=== PATIENT | female | born 1955 | race Caucasian/White ===

== ENCOUNTER 2018-05-03 18:33 | Inpatient (IN) | payer OTHER ==
[~2018-05-03] VITALS: Ht 165.1 cm; Wt 77.0 kg
[~2018-05-03 18:33] MED LIST: ATEN-51; ATOR20TA17; METFORMIN HCL
[2018-05-03 22:50] VITALS: Ht 165.1 cm; Wt 77.0 kg
[2018-05-03 22:59] VITALS: PULSE 85
[2018-05-03 23:10] VITALS: BP 117/58; PULSE 87; RESP 18
[2018-05-04] VITALS (11 sets, daily range): BP systolic 123–152; BP diastolic 60–71; PULSE 70–84; RESP 18–19
[2018-05-04] MEDS ORDERED: GLUCAGON 1 MG INJ IM PRN (01:00)
[2018-05-04] MEDS: ACCU-CHEK XX SCH ×5 (01:00→16:39)
[2018-05-04] MEDS ORDERED: GLUCOSE GEL 15 GRAM TUBE PO PRN ×2 (01:00)
[2018-05-04] MEDS ORDERED: NACL 0.9% 3 ML SYG IV SCH (01:00)
[2018-05-04] MEDS ORDERED: ACETAMINOPHEN 325 MG TAB PO PRN (01:00)
[2018-05-04] MEDS ORDERED: GLUCOSE GEL 15 GRAM TUBE BUCCAL PRN (01:00)
[2018-05-04] MEDS ORDERED: ALBUTEROL/IPRATROPIUM (NEB) 3 ML AMP HHN PRN (01:00)
[2018-05-04] MEDS ORDERED: DEXTROSE 50% 50 ML SYRINGE IV PRN ×2 (01:00)
[2018-05-04] MEDS ORDERED: NITROGLYCERIN (SL) 0.4 MG TAB SL PRN (01:00)
[2018-05-04] MEDS: DEXTROSE 5%-0.45% NACL 1,000 ML IV SCH ×2 (01:12→08:32)
[2018-05-04] MEDS: INSULIN ASPART [NOVOLOG] 3 ML PEN SC SCH ×6 (01:22→22:35)
[2018-05-04] MEDS ORDERED: ACCU-CHEK XX SCH (02:00)
--- NOTE | 2018-05-04 04:11 | HP ---
Date/Time of Note Date/Time of Note DATE: 05/04/18 TIME: 04:07 Assessment/Plan VTE Prophylaxis Pharmacological prophylaxis: heparin Assessment/Plan Assessment/Plan 1. Multivessel CAD -Patient transferred for CABG. The cardiothoracic aware of transfer -We will place a cardiology consult in a.m. 2. Hypertension: Continue antihypertensives, adjust as needed 3. Type 2 diabetes: Insulin while in house 4. Dyslipidemia: Continue statin Result Diagram: 05/04/18 0055 05/04/18 0055 Results 24hrs Laboratory Tests Test 05/04/18 00:55 05/04/18 00:56 05/04/18 01:15 White Blood Count 8.7 Red Blood Count 3.32 L Hemoglobin 10.0 L Hematocrit 29.8 L Mean Corpuscular Volume 89.8 Mean Corpuscular Hemoglobin 30.1 Mean Corpuscular Hemoglobin Concent 33.6 Red Cell Distribution Width 13.6 Platelet Count 190 Mean Platelet Volume 10.7 H Immature Granulocytes % 0.300 Neutrophils % 56.1 Lymphocytes % 34.7 Monocytes % 6.2 Eosinophils % 2.2 Basophils % 0.5 Nucleated Red Blood Cells % 0.0 Immature Granulocytes # 0.030 Neutrophils # 4.9 Lymphocytes # 3.0 H Monocytes # 0.5 Eosinophils # 0.2 Basophils # 0.0 Nucleated Red Blood Cells # 0.0 Sodium Level 141 Potassium Level 3.7 Chloride Level 102 Carbon Dioxide Level 27 Anion Gap 12 Blood Urea Nitrogen 14 Creatinine 0.74 Est Glomerular Filtrat Rate mL/min > 60 Glucose Level 186 Hemoglobin A1c 6.9 H Calcium Level 9.1 Total Bilirubin 0.7 Direct Bilirubin 0.00 Indirect Bilirubin 0.7 Aspartate Amino Transf (AST/SGOT) 25 Alanine Aminotransferase (ALT/SGPT) 28 Alkaline Phosphatase 87 Creatine Kinase 38 Creatine Kinase Index 0.7 Creatinine Kinase MB (Mass) 0.26 Troponin I 0.093 Total Protein 6.6 Albumin 3.8 Globulin 2.80 Albumin/Globulin Ratio 1.35 Thyroid Stimulating Hormone (TSH) 2.250 Bedside Glucose 215 201 HPI/ROS Admit Date/Time Admit Date/Time May 03, 2018 at 23:07 Hx of Present Illness This is a 62-year-old female with a history of hypertension, type II diabetes, dyslipidemia who initially presented on outside hospital for chest pain. Patient was diagnosed with multivessel CAD and transferred to [facility] for CABG. currently patient stable and chest pain-free. PMH/Family/Social Past Medical History Medications Current Medications Acetaminophen (Tylenol Tab) 650 mg Q6H PRN PO MILD PAIN(1-3)OR ELEVATED TEMP; Start 05/03/18 at 23:30 Diagnostic Test (Pha) (Accu-Chek) 1 ea Q4 XX ; Start 05/04/18 at 01:00 Dextrose/Sodium Chloride 1,000 ml @ 75 mls/hr [id number] IV Last administered on 05/04/18at 01:12; Admin Dose 75 MLS/HR; Start 05/04/18 at 00:33 IV Flush (NS 3 ml) 3 ml PER PROTOCOL IV ; Start 05/04/18 at 01:00 Ondansetron HCl (Zofran Inj) 4 mg Q6H PRN IV NAUSEA AND/OR VOMITING; Start 05/04/18 at 01:00 Aspirin (Aspirin) 81 mg DAILY PO ; Start 05/04/18 at 09:00 Nitroglycerin (Nitroglycerin (Sl Tab) 0.4 Mg) 1 tab Q5M PRN SL CHEST PAIN; Start 05/04/18 at 01:00 Acetaminophen (Tylenol Tab) 650 mg Q6H PRN PO PAIN LEVEL 1-3 OR FEVER; Start 05/04/18 at 01:00 Acetaminophen/ Hydrocodone Bitart ([place] (5/325)) 1 tab Q6H PRN PO PAIN LEVEL 4-6; Start 05/04/18 at 01:00 Enoxaparin Sodium (Lovenox) 40 mg DAILY SC ; Start 05/04/18 at 09:00 Albuterol/ Ipratropium (Duoneb) 3 ml Q2H RESP THERAPY PRN HHN SHORTNESS OF BREATH; Start 05/04/18 at 01:00 Insulin Aspart (Novolog Insulin Pen) NOVOLOG *MILD* ALGORI... Q4 SC Last admini stered on 05/04/18at 01:22; Admin Dose 2 UNIT; Start 05/04/18 at 01:00 Atenolol (Tenormin) 25 mg DAILY PO ; Start 05/04/18 at 09:00 Atorvastatin Calcium (Lipitor) 40 mg QHS PO ; Start 05/04/18 at 21:00 Miscellaneous Information 1 ea NOTE XX ; Start 05/04/18 at 01:00 Glucose (Glutose) 15 gm Q15M PRN PO DECREASED GLUCOSE; Start 05/04/18 at 01:00 Glucose (Glutose) 22.5 gm Q15M PRN PO DECREASED GLUCOSE; Start 05/04/18 at 01:00 Dextrose (D50w Syringe) 25 ml Q15M PRN IV DECREASED GLUCOSE; Start 05/04/18 at 01:00 Dextrose (D50w Syringe) 50 ml Q15M PRN IV DECREASED GLUCOSE; Start 05/04/18 at 01:00 Glucagon (Glucagen) 1 mg Q15M PRN IM DECREASED GLUCOSE; Start 05/04/18 at 01:00 Glucose (Glutose) 15 gm Q15M PRN BUCCAL DECREASED GLUCOSE; Start 05/04/18 at 01:00 Coded Allergies: No Known Drug Allergies (Verified Allergy, Mild, 10/11/09) Social History Smoking Status: Never smoker Exam/Review of Systems Vital Signs Vitals Vital Signs Date Temp Pulse Resp B/P (MAP) Pulse Ox O2 O2 Flow FiO2 Time Delivery Rate 05/04/18 82 00:00 05/03/18 98.7 18 117/58 94 Room Air 23:10 (77) Exam Exam Constitutional: other (no acute distress) Head: normocephalic Respiratory: other (slight decreased at bases) Cardiovascular: regular rate and rhythm Gastrointestinal: soft Extremities: normal pulses PMH/Family/Social Past Medical History Medical History: other (see hpi) Coded Allergies: No Known Drug Allergy (Verified Allergy, Unknown, 12/18/15) Past Surgical History Past Surgical Hx: other (see hpi) Family History Significant Family History: no pertinent family hx Social History Alcohol Use: other Smoking Status: Unknown if ever smoked Drug Use: other SAEED ASENCIO MD May 04, 2018 04:11
[2018-05-04] MEDS: ASPIRIN 81 MG TAB PO SCH (08:32)
[2018-05-04] MEDS: ENOXAPARIN 40 MG/0.4 ML SYG SC SCH (08:44)
[2018-05-04] MEDS ORDERED: ATENOLOL 25 MG TAB PO SCH (09:00)
--- NOTE | 2018-05-04 15:18 | PN ---
Date/Time of Note Date/Time of Note DATE: 05/04/18 TIME: 15:18 Objective Vitals Vital Signs Date Temp Pulse Resp B/P (MAP) Pulse Ox O2 O2 Flow FiO2 Time Delivery Rate 05/04/18 98.4 75 19 145/67 91 15:10 (93) 05/04/18 Room Air 12:09 Results Result Diagram: 05/04/18 0055 05/04/18 0055 Medications Medications Current Medications Acetaminophen (Tylenol Tab) 650 mg Q6H PRN PO MILD PAIN(1-3)OR ELEVATED TEMP; Start 05/03/18 at 23:30 Diagnostic Test (Pha) (Accu-Chek) 1 ea Q4 XX ; Start 05/04/18 at 01:00 IV Flush (NS 3 ml) 3 ml PER PROTOCOL IV ; Start 05/04/18 at 01:00 Ondansetron HCl (Zofran Inj) 4 mg Q6H PRN IV NAUSEA AND/OR VOMITING; Start 05/04/18 at 01:00 Aspirin (Aspirin) 81 mg DAILY PO Last administered on 05/04/18at 08:32; Admin Dose 81 MG; Start 05/04/18 at 09:00 Nitroglycerin (Nitroglycerin (Sl Tab) 0.4 Mg) 1 tab Q5M PRN SL CHEST PAIN; Start 05/04/18 at 01:00 Acetaminophen (Tylenol Tab) 650 mg Q6H PRN PO PAIN LEVEL 1-3 OR FEVER; Start 05/04/18 at 01:00 Acetaminophen/ Hydrocodone Bitart ([place] (5/325)) 1 tab Q6H PRN PO PAIN LEVEL 4-6; Start 05/04/18 at 01:00 Enoxaparin Sodium (Lovenox) 40 mg DAILY SC Last administered on 05/04/18at 08:44; Admin Dose 40 MG; Start 05/04/18 at 09:00 Albuterol/ Ipratropium (Duoneb) 3 ml Q2H RESP THERAPY PRN HHN SHORTNESS OF BREATH; Start 05/04/18 at 01:00 Insulin Aspart (Novolog Insulin Pen) NOVOLOG *MILD* ALGORI... Q4 SC Last administered on 05/04/18at 12:04; Admin Dose 1 UNIT; Start 05/04/18 at 01:00 Atenolol (Tenormin) 25 mg DAILY PO Last administered on 05/04/18at 08:33; Admin D ose 25 MG; Start 05/04/18 at 09:00 Atorvastatin Calcium (Lipitor) 40 mg QHS PO ; Start 05/04/18 at 21:00 Miscellaneous Information 1 ea NOTE XX ; Start 05/04/18 at 01:00 Glucose (Glutose) 15 gm Q15M PRN PO DECREASED GLUCOSE; Start 05/04/18 at 01:00 Glucose (Glutose) 22.5 gm Q15M PRN PO DECREASED GLUCOSE; Start 05/04/18 at 01:00 Dextrose (D50w Syringe) 25 ml Q15M PRN IV DECREASED GLUCOSE; Start 05/04/18 at 01:00 Dextrose (D50w Syringe) 50 ml Q15M PRN IV DECREASED GLUCOSE; Start 05/04/18 at 01:00 Glucagon (Glucagen) 1 mg Q15M PRN IM DECREASED GLUCOSE; Start 05/04/18 at 01:00 Glucose (Glutose) 15 gm Q15M PRN BUCCAL DECREASED GLUCOSE; Start 05/04/18 at 01:00 VTE Prophylaxis Risk score (from Nsg)>0 risk: 2 SCD applied (from Ns): Yes Lines/Catheters IV Catheter Type: Freed in Place: No Assessment/Plan Hospital Course Short progress note as H&P was seen earlier today, patient transferred for CABG, cardiothoracic surgery and cardiology has been consulted, patient scheduled for surgery on May 08. JOSE ELIAS ANGELO May 04, 2018 15:18
--- NOTE | 2018-05-04 18:57 | CONS ---
Date/Time of Note Date/Time of Note DATE: 05/04/18 TIME: 18:55 Assessment/Plan Assessment/Plan Assessment/Plan Severe obstructive coronary artery disease Diabetes Hypertension -Patient presented to outside facility with symptoms of chest pain. She underwent cardiac catheterization. As per transfer reports, patient with severe disease noted proximal LAD and proximal circumflex which was dominant. Recommendations were for coronary artery bypass grafting. We will continue aspirin therapy, beta-vanna, statin therapy, check echocardiogram and ECG. Result Diagram: 05/04/18 0055 05/04/18 0055 Results 24hrs Laboratory Tests Test 05/04/18 00:55 05/04/18 00:56 05/04/18 01:15 05/04/18 05:43 White Blood Count 8.7 Red Blood Count 3.32 L Hemoglobin 10.0 L Hematocrit 29.8 L Mean Corpuscular Volume 89.8 Mean Corpuscular 30.1 Hemoglobin Mean Corpuscular 33.6 Hemoglobin Concent Red Cell Distribution 13.6 Width Platelet Count 190 Mean Platelet Volume 10.7 H Immature Granulocytes % 0.300 Neutrophils % 56.1 Lymphocytes % 34.7 Monocytes % 6.2 Eosinophils % 2.2 Basophils % 0.5 Nucleated Red Blood 0.0 Cells % Immature Granulocytes # 0.030 Neutrophils # 4.9 Lymphocytes # 3.0 H Monocytes # 0.5 Eosinophils # 0.2 Basophils # 0.0 Nucleated Red Blood 0.0 Cells # Sodium Level 141 Potassium Level 3.7 Chloride Level 102 Carbon Dioxide Level 27 Anion Gap 12 Blood Urea Nitrogen 14 Creatinine 0.74 Est Glomerular Filtrat > 60 Rate mL/min Glucose Level 186 Hemoglobin A1c 6.9 H Calcium Level 9.1 Total Bilirubin 0.7 Direct Bilirubin 0.00 Indirect Bilirubin 0.7 Aspartate Amino 25 Transf (AST/SGOT) Alanine 28 Aminotransferase (ALT/SG PT) Alkaline Phosphatase 87 Creatine Kinase 38 Creatine Kinase Index 0.7 Creatinine Kinase MB 0.26 (Mass) Troponin I 0.093 Total Protein 6.6 Albumin 3.8 Globulin 2.80 Albumin/Globulin Ratio 1.35 Thyroid Stimulating 2.250 Hormone (TSH) Bedside Glucose 215 201 176 Test 05/04/18 05:57 05/04/18 08:25 05/04/18 11:51 05/04/18 17:03 Creatine Kinase 38 Creatine Kinase Index 0.7 Creatinine Kinase MB 0.28 (Mass) Troponin I 0.084 Bedside Glucose 176 164 194 Consultation Date/Type/Reason Admit Date/Time May 03, 2018 at 23:07 Type of Consult cv Reason for Consultation Coronary artery disease Hx of Present Illness This is a 62-year-old female past medical history of diabetes, hypertension presents to outside facility with chest pain or shortness of breath. When cardiac workup and found to have severe coronary artery disease with recommendations for coronary artery bypass grafting. She denies current chest pain, shortness of breath, palpitations or dizziness. 12 point review of systems was performed with all pertinent positives and negatives mentioned above and all else is negative Past Medical History Medical History: coronary artery disease, diabetes, high cholesterol, hypertension Medications Current Medications Acetaminophen (Tylenol Tab) 650 mg Q6H PRN PO MILD PAIN(1-3)OR ELEVATED TEMP; Start 05/03/18 at 23:30 IV Flush (NS 3 ml) 3 ml PER PROTOCOL IV ; Start 05/04/18 at 01:00 Ondansetron HCl (Zofran Inj) 4 mg Q6H PRN IV NAUSEA AND/OR VOMITING; Start 05/04/18 at 01:00 Aspirin (Aspirin) 81 mg DAILY PO Last administered on 05/04/18at 08:32; Admin Dose 81 MG; Start 05/04/18 at 09:00 Nitroglycerin (Nitroglycerin (Sl Tab) 0.4 Mg) 1 tab Q5M PRN SL CHEST PAIN; Start 05/04/18 at 01:00 Acetaminophen (Tylenol Tab) 650 mg Q6H PRN PO PAIN LEVEL 1-3 OR FEVER; Start 05/04/18 at 01:00 Acetaminophen/ Hydrocodone Bitart ([place] (5/325)) 1 tab Q6H PRN PO PAIN LEVEL 4-6; Start 05/04/18 at 01:00 Enoxaparin Sodium (Lovenox) 40 mg DAILY SC Last administered on 05/04/18at 08:44; Admin Dose 40 MG; Start 05/04/18 at 09:00 Albuterol/ Ipratropium (Duoneb) 3 ml Q2H RESP THERAPY PRN HHN SHORTNESS OF BREATH; Start 05/04/18 at 01:00 Atenolol (Tenormin) 25 mg DAILY PO Last administered on 05/04/18at 08:33; Admin Dose 25 MG; Start 05/04/18 at 09:00 Atorvastatin Calcium (Lipitor) 40 mg QHS PO ; Start 05/04/18 at 21:00 Miscellaneous Information 1 ea NOTE XX ; Start 05/04/18 at 01:00 Glucose (Glutose) 15 gm Q15M PRN PO DECREASED GLUCOSE; Start 05/04/18 at 01:00 Glucose (Glutose) 22.5 gm Q15M PRN PO DECREASED GLUCOSE; Start 05/04/18 at 01:00 Dextrose (D50w Syringe) 25 ml Q15M PRN IV DECREASED GLUCOSE; Start 05/04/18 at 01:00 Dextrose (D50w Syringe) 50 ml Q15M PRN IV DECREASED GLUCOSE; Start 05/04/18 at 01:00 Glucagon (Glucagen) 1 mg Q15M PRN IM DECREASED GLUCOSE; Start 05/04/18 at 01:00 Glucose (Glutose) 15 gm Q15M PRN BUCCAL DECREASED GLUCOSE; Start 05/04/18 at 01:00 Diagnostic Test (Pha) (Accu-Chek) 1 ea 02 XX ; Start 05/05/18 at 02:00 Insulin Aspart (Novolog Insulin Pen) NOVOLOG *MILD* ALGORITHM WITH MEALS BEDTIME SC Last administered on 05/04/18at 17:13; Admin Dose 2 UNIT; Start 05/04/18 at 17:55 Allergies: Coded Allergies: No Known Drug Allergies (Verified Allergy, Mild, 10/11/09) Past Surgical History Past Surgical Hx: no surgical history Family History Significant Family History: no pertinent family hx Social History Alcohol Use: none Smoking Status: Never smoker Exam/Review of Systems Vital Signs Vitals Vital Signs Date Temp Pulse Resp B/P (MAP) Pulse Ox O2 O2 Flow FiO2 Time Delivery Rate 05/04/18 79 16:51 05/04/18 Room Air 15:59 05/04/18 98.4 19 145/67 91 15:10 (93) Exam No apparent distress Constitutional: alert, oriented Head: normocephalic Neck: supple Respiratory: clear to auscultation, normal air movement Cardiovascular: regular rate and rhythm, other (S1-S2 heard) Gastrointestinal: soft, non-tender, bowel sounds Extremities: other (No significant edema) Medications Medications Current Medications Acetaminophen (Tylenol Tab) 650 mg Q6H PRN PO MILD PAIN(1-3)OR ELEVATED TEMP; Start 05/03/18 at 23:30 IV Flush (NS 3 ml) 3 ml PER PROTOCOL IV ; Start 05/04/18 at 01:00 Ondansetron HCl (Zofran Inj) 4 mg Q6H PRN IV NAUSEA AND/OR VOMITING; Start 05/04/18 at 01:00 Aspirin (Aspirin) 81 mg DAILY PO Last administered on 05/04/18at 08:32; Admin Dose 81 MG; Start 05/04/18 at 09:00 Nitroglycerin (Nitroglycerin (Sl Tab) 0.4 Mg) 1 tab Q5M PRN SL CHEST PAIN; Start 05/04/18 at 01:00 Acetaminophen (Tylenol Tab) 650 mg Q6H PRN PO PAIN LEVEL 1-3 OR FEVER; Start 05/04/18 at 01:00 Acetaminophen/ Hydrocodone Bitart ([place] (5/325)) 1 tab Q6H PRN PO PAIN LEVEL 4-6; Start 05/04/18 at 01:00 Enoxaparin Sodium (Lovenox) 40 mg DAILY SC Last administered on 05/04/18at 08:44; Admin Dose 40 MG; Start 05/04/18 at 09:00 Albuterol/ Ipratropium (Duoneb) 3 ml Q2H RESP THERAPY PRN HHN SHORTNESS OF CRISTOFER TH; Start 05/04/18 at 01:00 Atenolol (Tenormin) 25 mg DAILY PO Last administered on 05/04/18at 08:33; Admin Dose 25 MG; Start 05/04/18 at 09:00 Atorvastatin Calcium (Lipitor) 40 mg QHS PO ; Start 05/04/18 at 21:00 Miscellaneous Information 1 ea NOTE XX ; Start 05/04/18 at 01:00 Glucose (Glutose) 15 gm Q15M PRN PO DECREASED GLUCOSE; Start 05/04/18 at 01:00 Glucose (Glutose) 22.5 gm Q15M PRN PO DECREASED GLUCOSE; Start 05/04/18 at 01:00 Dextrose (D50w Syringe) 25 ml Q15M PRN IV DECREASED GLUCOSE; Start 05/04/18 at 01:00 Dextrose (D50w Syringe) 50 ml Q15M PRN IV DECREASED GLUCOSE; Start 05/04/18 at 01:00 Glucagon (Glucagen) 1 mg Q15M PRN IM DECREASED GLUCOSE; Start 05/04/18 at 01:00 Glucose (Glutose) 15 gm Q15M PRN BUCCAL DECREASED GLUCOSE; Start 05/04/18 at 01:00 Diagnostic Test (Pha) (Accu-Chek) 1 ea 02 XX ; Start 05/05/18 at 02:00 Insulin Aspart (Novolog Insulin Pen) NOVOLOG *MILD* ALGORITHM WITH MEALS BEDTIME SC Last administered on 05/04/18at 17:13; Admin Dose 2 UNIT; Start 05/04/18 at 17:55 Vinny Simons DO May 04, 2018 18:57
--- NOTE | 2018-05-04 18:58 | CONS ---
DATE OF ADMISSION: 05/03/2018 DATE OF CONSULTATION: REASON FOR CONSULTATION: Coronary artery disease. HISTORY OF PRESENT ILLNESS: This is a 62-year-old female with a history of hypertension, diabetes, w ho was admitted to [facility] with a non-ST elevation myocardial infarction. Subsequently, was found to have a cardiac catheterization which showed 3-vessel coronary artery disease. Patient i s now being transferred to [facility] to undergo coronary artery bypass grafting. PAST MEDICAL HISTORY: Hypertension, hyperlipidemia. PAST SURGICAL HISTORY: None. ALLERGIES: NONE. SOCIAL HISTORY: No smoking, drinking, or drug use. MEDICATIONS: List reviewed. IMPRESSION: 1. Coronary artery disease. 2. Status post non-ST elevation myocardial infarction. RECOMMENDATIONS: We will proceed with reviewing the CAT scan and the ultrasound examination of the p atient. Subsequently a decision will be made regarding undergoing coronary artery bypass grafting. Discussed with the patient and the daughter. Dictated By: MANUEL TORRES MD FM/NTS Conf#: [id number] DID#: [id number] CC: JOSE ELIAS ANGELO MD;*EndCC*
[2018-05-04] MEDS: ATORVASTATIN 20 MG TAB PO SCH (22:07)
[2018-05-04] MEDS: METOPROLOL 25 MG TAB PO SCH (22:08)
[2018-05-05] VITALS (11 sets, daily range): BP systolic 124–144; BP diastolic 58–72; PULSE 72–91; RESP 16–19
[2018-05-05] MEDS: ACCU-CHEK XX SCH (02:00)
[2018-05-05] MEDS: INSULIN ASPART [NOVOLOG] 3 ML PEN SC SCH ×4 (08:10→21:09)
[2018-05-05] MEDS: METOPROLOL 25 MG TAB PO SCH ×2 (08:39→21:03)
[2018-05-05] MEDS: ASPIRIN 81 MG TAB PO SCH (08:39)
[2018-05-05] MEDS: ENOXAPARIN 40 MG/0.4 ML SYG SC SCH (08:54)
--- NOTE | 2018-05-05 12:26 | CONS ---
Date/Time of Note Date/Time of Note DATE: 05/05/18 TIME: 12:23 Assessment/Plan Assessment/Plan Assessment/Plan Severe obstructive coronary artery disease Diabetes Hypertension -Patient presented to outside facility with symptoms of chest pain. She underwent cardiac catheterization. Cardiac catheterization films reviewed, patient with severe stenosis in the proximal LAD as well as proximal left circumflex which is dominant. Agree with recommendations for coronary artery bypass grafting. Of note, there was no images of the right system but in discussion with CT surgery, it was a small vessel. We will continue aspirin therapy, beta-vanna, statin therapy, check echocardiogram. Findings and plan of care discussed with patient's daughter over the phone. Result Diagram: 05/05/18 0642 05/05/18 0642 Results 24hrs Laboratory Tests Test 05/04/18 17:03 05/04/18 22:06 05/05/18 03:17 05/05/18 06:42 Bedside Glucose 194 211 156 White Blood Count 8.2 Red Blood Count 3.68 L Hemoglobin 11.0 L Hematocrit 32.4 L Mean Corpuscular Volume 88.0 Mean Corpuscular 29.9 Hemoglobin Mean Corpuscular 34.0 Hemoglobin Concent Red Cell Distribution 13.6 Width Platelet Count 205 Mean Platelet Volume 10.9 H Immature Granulocytes % 0.600 H Neutrophils % 59.0 Lymphocytes % 31.9 Monocytes % 5.7 Eosinophils % 2.4 Basophils % 0.4 Nucleated Red Blood 0.0 Cells % Immature Granulocytes # 0.050 H Neutrophils # 4.9 Lymphocytes # 2.6 Monocytes # 0.5 Eosinophils # 0.2 Basophils # 0.0 Nucleated Red Blood 0.0 Cells # Sodium Level 142 Potassium Level 4.0 Chloride Level 103 Carbon Dioxide Level 27 Anion Gap 12 Blood Urea Nitrogen 13 Creatinine 0.66 Est Glomerular Filtrat > 60 Rate mL/min Glucose Level 155 Calcium Level 9.5 Phosphorus Level 3.9 Magnesium Level 2.1 Triglycerides Level 101 Cholesterol Level 164 LDL Cholesterol, 105 Calculated HDL Cholesterol 39 Cholesterol/HDL Ratio 4.2 Test 05/05/18 08:01 05/05/18 11:52 Bedside Glucose 156 166 Consultation Date/Type/Reason Admit Date/Time May 03, 2018 at 23:07 Initial Consult Date Type of Consult cv 24 HR Interval Summary Free Text/Dictation Denies chest pain, shortness of breath or palpitations Exam/Review of Systems Vital Signs Vitals Vital Signs Date Temp Pulse Resp B/P (MAP) Pulse Ox O2 O2 Flow FiO2 Time Delivery Rate 05/05/18 98.1 73 17 142/69 97 Room Air 11:10 (93) Intake and Output 05/04/18 05/04/18 05/05/18 1414:59 22:59 06:59 IntakeIntake Total 450 ml 800 ml 500 ml BalanceBalance 450 ml 800 ml 500 ml Exam No apparent distress Constitutional: alert, oriented Head: normocephalic Respiratory: other (Coarse breath sounds bilaterally, no wheezing) Cardiovascular: regular rate and rhythm, other (S1-S2 heard) Gastrointestinal: soft, non-tender, bowel sounds Extremities: other (No significant edema) Medications Medications Current Medications Acetaminophen (Tylenol Tab) 650 mg Q6H PRN PO MILD PAIN(1-3)OR ELEVATED TEMP; Start 05/03/18 at 23:30 IV Flush (NS 3 ml) 3 ml PER PROTOCOL IV ; Start 05/04/18 at 01:00 Ondansetron HCl (Zofran Inj) 4 mg Q6H PRN IV NAUSEA AND/OR VOMITING; Start 05/04/18 at 01:00 Aspirin (Aspirin) 81 mg DAILY PO Last administered on 05/05/18at 08:39; Admin Dose 81 MG; Start 05/04/18 at 09:00 Nitroglycerin (Nitroglycerin (Sl Tab) 0.4 Mg) 1 tab Q5M PRN SL CHEST PAIN; Start 05/04/18 at 01:00 Acetaminophen (Tylenol Tab) 650 mg Q6H PRN PO PAIN LEVEL 1-3 OR FEVER; Start 05/04/18 at 01:00 Acetaminophen/ Hydrocodone Bitart ([place] (5/325)) 1 tab Q6H PRN PO PAIN LEVEL 4-6; Start 05/04/18 at 01:00 Enoxaparin Sodium (Lovenox) 40 mg DAILY SC Last administered on 05/05/18at 08:54; Admin Dose 40 MG; Start 05/04/18 at 09:00 Albuterol/ Ipratropium (Duoneb) 3 ml Q2H RESP THERAPY PRN HHN SHORTNESS OF BREATH; Start 05/04/18 at 01:00 Atorvastatin Calcium (Lipitor) 40 mg QHS PO Last administered on 05/04/18at 22:07; Admin Dose 40 MG; Start 05/04/18 at 21:00 Miscellaneous Information 1 ea NOTE XX ; Start 05/04/18 at 01:00 Glucose (Glutose) 15 gm Q15M PRN PO DECREASED GLUCOSE; Start 05/04/18 at 01:00 Glucose (Glutose) 22.5 gm Q15M PRN PO DECREASED GLUCOSE; Start 05/04/18 at 01:00 Dextrose (D50w Syringe) 25 ml Q15M PRN IV DECREASED GLUCOSE; Start 05/04/18 at 01:00 Dextrose (D50w Syringe) 50 ml Q15M PRN IV DECREASED GLUCOSE; Start 05/04/18 at 01:00 Glucagon (Glucagen) 1 mg Q15M PRN IM DECREASED GLUCOSE; Start 05/04/18 at 01:00 Glucose (Glutose) 15 gm Q15M PRN BUCCAL DECREASED GLUCOSE; Start 05/04/18 at 01:00 Diagnostic Test (Pha) (Accu-Chek) 1 ea 02 XX ; Start 05/05/18 at 02:00 Insulin Aspart (Novolog Insulin Pen) NOVOLOG *MILD* ALGORITHM WITH MEALS BEDTIME SC Last administered on 05/05/18at 12:00; Admin Dose 1 UNIT; Start 05/04/18 at 17:55 Metoprolol Tartrate (Lopressor) 25 mg BID PO Last administered on 05/05/18at 08:39; Admin Dose 25 MG; Start 05/04/18 at 21:00 Vinny Simons DO May 05, 2018 12:26
--- NOTE | 2018-05-05 14:13 | RADRPT ---
Echocardiogram Report Patient Name: ROSEMARIE MEDINA Gender: Female Date: 1955 Study Date: 05-May-2018 Contract Implementation Analyst: Location: I Ref. Physician: VINNY SIMONS Quality: Good Procedures: Transthoracic echocardiogram with complete 2D, M-Mode, and doppler examination. Indications: Evaluate Left Ventricular function. 2D/M Mode Doppler Measurement Value Normal Ranges Measurement Value Normal Ranges LVIDd 2D 4.0 3.5 - 5.6 cm AV Peak Eusebio 1.5 m/sec LVIDs 2D 2.5 2.1 - 4.1 cm AV Peak PG 8.0 mmHg LVPWd 2D 1.1 0.6 - 1.1 cm LVOT Peak Eusebio 1.0 m/sec IVSd 2D 1.2 0.6 - 1.1 cm LVOT Peak PG 4.0 mmHg AoR Diam 2D 2.5 2.0 - 3.7 cm LA Dimen 2D 2.5 2.3 - 4.0 cm Findings Left Ventricle: Normal left ventricular systolic function. Normal left ventricular cavity size. Normal left ventricular wall thickness. Ejection fraction is visually estimated at 60 %. Tissue Doppler/Mitral Doppler indices are consistent with impaired relaxation (Stage I diastolic dysfunction). Right Ventricle: Normal right ventricular size. Normal right ventricular systolic function. Left Atrium: The left atrium is normal in size. Right Atrium: The right atrium is normal in size. Mitral Valve: Normal appearance and function of the mitral valve with trace physiologic regurgitation. Aortic Valve: Normal appearance of the aortic valve. No significant aortic stenosis or insufficiency. Tricuspid Valve: Normal appearance and function of the tricuspid valve with trace physiologic regurgitation. Pulmonic Valve: Normal pulmonic valve appearance. Pericardium: Normal pericardium with no significant pericardial effusion. Aorta: Normal aortic root. IVC: Normal size and normal respiratory collapse consistent with normal right atrial pressure. Conclusions Normal left ventricular systolic function. Normal left ventricular cavity size. Normal left ventricular wall thickness. Ejection fraction is visually estimated at 60 %. Tissue Doppler/Mitral Doppler indices are consistent with impaired relaxation (Stage I diastolic dysfunction). Normal right ventricular size. Normal right ventricular systolic function. The left atrium is normal in size. The right atrium is normal in size. No significant valvular stenosis or regurgitation seen. Normal pericardium with no significant pericardial effusion. Electronically Signed By: Vinny Simons 05-May-2018 14:12:38 -0800 Patient Name: ROSEMARIE MEDINA Study Date: 05-May-2018 [id number]
--- NOTE | 2018-05-05 15:51 | PN ---
Date/Time of Note Date/Time of Note DATE: 05/05/18 TIME: 15:50 Objective Vitals Vital Signs Date Temp Pulse Resp B/P (MAP) Pulse Ox O2 O2 Flow FiO2 Time Delivery Rate 05/05/18 98.4 73 19 143/64 100 Room Air 15:03 (90) Intake and Output 05/04/18 05/04/18 05/05/18 1515:00 23:00 07:00 IntakeIntake Total 450 ml 800 ml 500 ml BalanceBalance 450 ml 800 ml 500 ml Results Result Diagram: 05/05/18 0642 05/05/18 0642 Medications Medications Current Medications Acetaminophen (Tylenol Tab) 650 mg Q6H PRN PO MILD PAIN(1-3)OR ELEVATED TEMP; Start 05/03/18 at 23:30 IV Flush (NS 3 ml) 3 ml PER PROTOCOL IV ; Start 05/04/18 at 01:00 Ondansetron HCl (Zofran Inj) 4 mg Q6H PRN IV NAUSEA AND/OR VOMITING; Start 05/04/18 at 01:00 Aspirin (Aspirin) 81 mg DAILY PO Last administered on 05/05/18at 08:39; Admin Dose 81 MG; Start 05/04/18 at 09:00 Nitroglycerin (Nitroglycerin (Sl Tab) 0.4 Mg) 1 tab Q5M PRN SL CHEST PAIN; Start 05/04/18 at 01:00 Acetaminophen (Tylenol Tab) 650 mg Q6H PRN PO PAIN LEVEL 1-3 OR FEVER; Start 05/04/18 at 01:00 Acetaminophen/ Hydrocodone Bitart ([place] (5/325)) 1 tab Q6H PRN PO PAIN LEVEL 4-6; Start 05/04/18 at 01:00 Enoxaparin Sodium (Lovenox) 40 mg DAILY SC Last administered on 05/05/18at 08:54; Admin Dose 40 MG; Start 05/04/18 at 09:00 Albuterol/ Ipratropium (Duoneb) 3 ml Q2H RESP THERAPY PRN HHN SHORTNESS OF BREATH; Start 05/04/18 at 01:00 Atorvastatin Calcium (Lipitor) 40 mg QHS PO Last administered on 05/04/18at 22:07; Admin Dose 40 MG; Start 05/04/18 at 21:00 Miscellaneous Information 1 ea NOTE XX ; Start 05/04/18 at 01:00 Glucose (Glutose) 15 gm Q15M PRN PO DECREASED GLUCOSE; Start 05/04/18 at 01:00 Glucose (Glutose) 22.5 gm Q15M PRN PO DECREASED GLUCOSE; Start 05/04/18 at 01:00 Dextrose (D50w Syringe) 25 ml Q15M PRN IV DECREASED GLUCOSE; Start 05/04/18 at 01:00 Dextrose (D50w Syringe) 50 ml Q15M PRN IV DECREASED GLUCOSE; Start 05/04/18 at 01:00 Glucagon (Glucagen) 1 mg Q15M PRN IM DECREASED GLUCOSE; Start 05/04/18 at 01:00 Glucose (Glutose) 15 gm Q15M PRN BUCCAL DECREASED GLUCOSE; Start 05/04/18 at 01:00 Diagnostic Test (Pha) (Accu-Chek) 1 ea 02 XX ; Start 05/05/18 at 02:00 Insulin Aspart (Novolog Insulin Pen) NOVOLOG *MILD* ALGORITHM WITH MEALS BEDTIME SC Last administered on 05/05/18at 12:00; Admin Dose 1 UNIT; Start 05/04/18 at 17:55 Metoprolol Tartrate (Lopressor) 25 mg BID PO Last administered on 05/05/18at 08:39; Admin Dose 25 MG; Start 05/04/18 at 21:00 VTE Prophylaxis Risk score (from Nsg)>0 risk: 2 SCD applied (from Nsg): Yes Lines/Catheters IV Catheter Type: Freed in Place: No Assessment/Plan Hospital Course Subjective No acute complaints Objective Physical exam General: Patient is laying in bed and answers questions appropriately Mentation: Patient is alert and oriented 4, Head: Normocephalic atraumatic Eyes: EOMI, pupils reactive to light Neck: Supple, nontender, midline Respiratory: Clear to auscultation bilaterally Cardiovascular: regular rate, no obvious murmurs Gastrointestinal: non-tender to palpation, bowel sounds heard. Neurological: Moves all extremities spontaneously Skin: No new skin lesions Assessment and plan Triple-vessel coronary artery disease -Cardiothoracic surgery planning CABG on May 08 Coronary artery disease -Cardiology consulted -Medications per cardiology Hypertension -Home meds as able Dyslipidemia -Continue home meds as able Disposition -Pending CABG soon JOSE ELIAS ANGELO May 05, 2018 15:51
--- NOTE | 2018-05-05 17:28 | PN ---
Date/Time of Note Date/Time of Note DATE: 05/05/18 TIME: 17:27 Assessment/Plan Lines/Catheters IV Catheter Type (from Nrsg): Freed in Place (from Nrsg): No Assessment/Plan Assessment/Plan 1. Coronary artery disease. 2. Status post non-ST elevation myocardial infarction. Carotid dupplex negative Plan for CABG on Tuesday Risk and benefits explained to the pt Subjective 24 Hr Interval Summary Constitutional: improved Pain Control: mild Exam/Review of Systems Vital Signs Vitals Vital Signs Date Temp Pulse Resp B/P (MAP) Pulse Ox O2 O2 Flow FiO2 Time Delivery Rate 05/05/18 84 16:32 05/05/18 98.4 19 143/64 100 Room Air 15:03 (90) Intake and Output 05/04/18 05/04/18 05/05/18 1515:00 23:00 07:00 IntakeIntake Total 450 ml 800 ml 500 ml BalanceBalance 450 ml 800 ml 500 ml Exam Eyes: nl conjunctiva, EOMI, nl lids, nl sclera ENMT: nl external ears & nose, nl lips & teeth, nl nasal mucosa & septum, mucosa pink and moist Neck: supple, non-tender Respiratory: clear to auscultation, normal air movement Cardiovascular: regular rate and rhythm, nl pulses Gastrointestinal: soft, nl liver, spleen, non-tender Musculoskeletal: nl extremities to inspection, nl gait and stance Results Result Diagram: 05/05/18 0642 05/05/18 0642 MANUEL TORRES MD May 05, 2018 17:28
[2018-05-05] MEDS: HYDROCODONE/APAP (5/325) TAB PO PRN (19:52)
[2018-05-05] MEDS: ATORVASTATIN 20 MG TAB PO SCH (21:03)
[2018-05-06] VITALS (10 sets, daily range): BP systolic 138–152; BP diastolic 66–70; PULSE 71–101; RESP 17–19
[2018-05-06] MEDS: ACCU-CHEK XX SCH (02:00)
[2018-05-06] MEDS: INSULIN ASPART [NOVOLOG] 3 ML PEN SC SCH ×4 (07:50→21:19)
[2018-05-06] MEDS: ASPIRIN 81 MG TAB PO SCH (08:24)
[2018-05-06] MEDS: METOPROLOL 25 MG TAB PO SCH ×2 (08:24→20:23)
[2018-05-06] MEDS: ENOXAPARIN 40 MG/0.4 ML SYG SC SCH (08:27)
--- NOTE | 2018-05-06 12:44 | PN ---
Date/Time of Note Date/Time of Note DATE: 05/06/18 TIME: 12:43 Objective Vitals Vital Signs Date Temp Pulse Resp B/P (MAP) Pulse Ox O2 O2 Flow FiO2 Time Delivery Rate 05/06/18 98.2 85 17 148/67 97 11:53 (94) 05/06/18 Room Air 08:22 Intake and Output 05/05/18 05/05/18 05/06/18 1515:00 23:00 07:00 IntakeIntake Total 1050 ml OutputOutput Total 3 ml BalanceBalance 1047 ml Results Result Diagram: 05/06/18 0544 05/06/18 0544 Medications Medications Current Medications Acetaminophen (Tylenol Tab) 650 mg Q6H PRN PO MILD PAIN(1-3)OR ELEVATED TEMP; Start 05/03/18 at 23:30 IV Flush (NS 3 ml) 3 ml PER PROTOCOL IV ; Start 05/04/18 at 01:00 Ondansetron HCl (Zofran Inj) 4 mg Q6H PRN IV NAUSEA AND/OR VOMITING; Start 05/04/18 at 01:00 Aspirin (Aspirin) 81 mg DAILY PO Last administered on 05/06/18at 08:24; Admin Dose 81 MG; Start 05/04/18 at 09:00 Nitroglycerin (Nitroglycerin (Sl Tab) 0.4 Mg) 1 tab Q5M PRN SL CHEST PAIN; Start 05/04/18 at 01:00 Acetaminophen (Tylenol Tab) 650 mg Q6H PRN PO PAIN LEVEL 1-3 OR FEVER; Start 05/04/18 at 01:00 Acetaminophen/ Hydrocodone Bitart ([place] (5/325)) 1 tab Q6H PRN PO PAIN LEVEL 4-6 Last administered on 05/05/18at 19:52; Admin Dose 1 TAB; Start 05/04/18 at 01:00 Enoxaparin Sodium (Lovenox) 40 mg DAILY SC Last administered on 05/06/18at 08:27; Admin Dose 40 MG; Start 05/04/18 at 09:00 Albuterol/ Ipratropium (Duoneb) 3 ml Q2H RESP THERAPY PRN HHN SHORTNESS OF BREATH; Start 05/04/18 at 01:00 Atorvastatin Calcium (Lipitor) 40 mg QHS PO Last administered on 05/05/18at 21:0 3; Admin Dose 40 MG; Start 05/04/18 at 21:00 Miscellaneous Information 1 ea NOTE XX ; Start 05/04/18 at 01:00 Glucose (Glutose) 15 gm Q15M PRN PO DECREASED GLUCOSE; Start 05/04/18 at 01:00 Glucose (Glutose) 22.5 gm Q15M PRN PO DECREASED GLUCOSE; Start 05/04/18 at 01:00 Dextrose (D50w Syringe) 25 ml Q15M PRN IV DECREASED GLUCOSE; Start 05/04/18 at 01:00 Dextrose (D50w Syringe) 50 ml Q15M PRN IV DECREASED GLUCOSE; Start 05/04/18 at 01:00 Glucagon (Glucagen) 1 mg Q15M PRN IM DECREASED GLUCOSE; Start 05/04/18 at 01:00 Glucose (Glutose) 15 gm Q15M PRN BUCCAL DECREASED GLUCOSE; Start 05/04/18 at 01:00 Diagnostic Test (Pha) (Accu-Chek) 1 ea 02 XX ; Start 05/05/18 at 02:00 Insulin Aspart (Novolog Insulin Pen) NOVOLOG *MILD* ALGORITHM WITH MEALS BEDTIME SC Last administered on 05/06/18at 11:07; Admin Dose 3 UNIT; Start 05/04/18 at 17:55 Metoprolol Tartrate (Lopressor) 25 mg BID PO Last administered on 05/06/18at 08:24; Admin Dose 25 MG; Start 05/04/18 at 21:00 VTE Prophylaxis Risk score (from Nsg)>0 risk: 3 SCD applied (from Nsg): Yes Lines/Catheters IV Catheter Type: Freed in Place: No Assessment/Plan Hospital Course Subjective No acute complaints Objective Physical exam General: Patient is laying in bed and answers questions appropriately Mentation: Patient is alert and oriented 4, Head: Normocephalic atraumatic Eyes: EOMI, pupils reactive to light Neck: Supple, nontender, midline Respiratory: Clear to auscultation bilaterally Cardiovascular: regular rate, no obvious murmurs Gastrointestinal: non-tender to palpation, bowel sounds heard. Neurological: Moves all extremities spontaneously Skin: No new skin lesions Assessment and plan Triple-vessel coronary artery disease -Cardiothoracic surgery planning CABG on May 08 Coronary artery disease -Cardiology consulted -Medications per cardiology Hypertension -Home meds as able Dyslipidemia -Continue home meds as able Disposition -Pending CABG soon JOSE ELIAS ANGELO May 06, 2018 12:44
--- NOTE | 2018-05-06 14:38 | PN ---
Date/Time of Note Date/Time of Note DATE: 05/06/18 TIME: 14:37 Assessment/Plan Lines/Catheters IV Catheter Type (from Nrsg): Freed in Place (from Nrsg): No Assessment/Plan Assessment/Plan 1. Coronary artery disease. 2. Status post non-ST elevation myocardial infarction. Carotid dupplex negative Plan for CABG on Tuesday Risk and benefits explained to the pt Subjective 24 Hr Interval Summary Pain Control: mild Exam/Review of Systems Vital Signs Vitals Vital Signs Date Temp Pulse Resp B/P (MAP) Pulse Ox O2 O2 Flow FiO2 Time Delivery Rate 05/06/18 82 12:02 05/06/18 98.2 17 148/67 97 11:53 (94) 05/06/18 Room Air 08:22 Intake and Output 05/05/18 05/05/18 05/06/18 1515:00 23:00 07:00 IntakeIntake Total 1050 ml OutputOutput Total 3 ml BalanceBalance 1047 ml Exam Head: normocephalic, atraumatic Eyes: nl conjunctiva, EOMI, nl lids, nl sclera ENMT: nl external ears & nose, nl lips & teeth, nl nasal mucosa & septum, mucosa pink and moist Neck: supple, non-tender Respiratory: clear to auscultation, normal air movement Cardiovascular: regular rate and rhythm, nl pulses Musculoskeletal: nl extremities to inspection, nl gait and stance Results Result Diagram: 05/06/18 0544 05/06/18 0544 MANUEL TORRES MD May 06, 2018 14:38
[2018-05-06] MEDS: ATORVASTATIN 20 MG TAB PO SCH (20:23)
[2018-05-07] VITALS (10 sets, daily range): BP systolic 133–159; BP diastolic 61–81; PULSE 70–97; RESP 17–20
[2018-05-07] MEDS: ACCU-CHEK XX SCH (02:45)
[2018-05-07] MEDS: INSULIN ASPART [NOVOLOG] 3 ML PEN SC SCH ×4 (08:00→21:01)
[2018-05-07] MEDS: METOPROLOL 25 MG TAB PO SCH ×2 (08:08→20:49)
[2018-05-07] MEDS: ASPIRIN 81 MG TAB PO SCH (08:08)
[2018-05-07] MEDS: ENOXAPARIN 40 MG/0.4 ML SYG SC SCH (08:18)
--- NOTE | 2018-05-07 12:35 | PN ---
Date/Time of Note Date/Time of Note DATE: 05/07/18 TIME: 12:35 Objective Vitals Vital Signs Date Temp Pulse Resp B/P (MAP) Pulse Ox O2 O2 Flow FiO2 Time Delivery Rate 05/07/18 82 12:14 05/07/18 98.3 18 145/61 94 Room Air 11:21 (89) Intake and Output 05/06/18 05/06/18 05/07/18 1515:00 23:00 07:00 IntakeIntake Total 750 ml 100 ml BalanceBalance 750 ml 100 ml Results Result Diagram: 05/07/18 0600 05/07/18 0600 Medications Medications Current Medications Acetaminophen (Tylenol Tab) 650 mg Q6H PRN PO MILD PAIN(1-3)OR ELEVATED TEMP; Start 05/03/18 at 23:30 IV Flush (NS 3 ml) 3 ml PER PROTOCOL IV ; Start 05/04/18 at 01:00 Ondansetron HCl (Zofran Inj) 4 mg Q6H PRN IV NAUSEA AND/OR VOMITING; Start 05/04 at 01:00 Aspirin (Aspirin) 81 mg DAILY PO Last administered on 05/07/18at 08:08; Admin Dose 81 MG; Start 05/04/18 at 09:00 Nitroglycerin (Nitroglycerin (Sl Tab) 0.4 Mg) 1 tab Q5M PRN SL CHEST PAIN; Start 05/04/18 at 01:00 Acetaminophen (Tylenol Tab) 650 mg Q6H PRN PO PAIN LEVEL 1-3 OR FEVER; Start 05/04/18 at 01:00 Acetaminophen/ Hydrocodone Bitart ([place] (5/325)) 1 tab Q6H PRN PO PAIN LEVEL 4-6 Last administered on 05/05/18at 19:52; Admin Dose 1 TAB; Start 05/04/18 at 01:00 Enoxaparin Sodium (Lovenox) 40 mg DAILY SC Last administered on 05/07/18at 08:18; Admin Dose 40 MG; Start 05/04/18 at 09:00 Albuterol/ Ipratropium (Duoneb) 3 ml Q2H RESP THERAPY PRN HHN SHORTNESS OF BREATH; Start 05/04/18 at 01:00 Atorvastatin Calcium (Lipitor) 40 mg QHS PO Last administered on 05/06/18at 20:23; Admin Dose 40 MG; Start 05/04/18 at 21:00 Miscellaneous Information 1 ea NOTE XX ; Start 05/04/18 at 01:00 Glucose (Glutose) 15 gm Q15M PRN PO DECREASED GLUCOSE; Start 05/04/18 at 01:00 Glucose (Glutose) 22.5 gm Q15M PRN PO DECREASED GLUCOSE; Start 05/04/18 at 01:00 Dextrose (D50w Syringe) 25 ml Q15M PRN IV DECREASED GLUCOSE; Start 05/04/18 at 01:00 Dextrose (D50w Syringe) 50 ml Q15M PRN IV DECREASED GLUCOSE; Start 05/04/18 at 01:00 Glucagon (Glucagen) 1 mg Q15M PRN IM DECREASED GLUCOSE; Start 05/04/18 at 01:00 Glucose (Glutose) 15 gm Q15M PRN BUCCAL DECREASED GLUCOSE; Start 05/04/18 at 01:00 Diagnostic Test (Pha) (Accu-Chek) 1 ea 02 XX ; Start 05/05/18 at 02:00 Insulin Aspart (Novolog Insulin Pen) NOVOLOG *MILD* ALGORITHM WITH MEALS BEDTIME SC Last administered on 05/07/18at 11:17; Admin Dose 3 UNIT; Start 05/04/18 at 17:55 Metoprolol Tartrate (Lopressor) 25 mg BID PO Last administered on 05/07/18at 08:08; Admin Dose 25 MG; Start 05/04/18 at 21:00 VTE Prophylaxis Risk score (from Nsg)>0 risk: 4 SCD applied (from Ns): Yes Lines/Catheters IV Catheter Type: Freed in Place: No Assessment/Plan Hospital Course Subjective No acute complaints Objective Physical exam General: Patient is laying in bed and answers questions appropriately Mentation: Patient is alert and oriented 4, Head: Normocephalic atraumatic Eyes: EOMI, pupils reactive to light Neck: Supple, nontender, midline Respiratory: Clear to auscultation bilaterally Cardiovascular: regular rate, no obvious murmurs Gastrointestinal: non-tender to palpation, bowel sounds heard. Neurological: Moves all extremities spontaneously Skin: No new skin lesions Assessment and plan Triple-vessel coronary artery disease -Cardiothoracic surgery planning CABG on May 08 Coronary artery disease -Cardiology consulted -Medications per cardiology Hypertension -Home meds as able Dyslipidemia -Continue home meds as able Disposition -Pending CABG soon JOSE ELIAS ANGELO 6, 2019 12:35
[2018-05-07] MEDS: ATORVASTATIN 20 MG TAB PO SCH (20:49)
--- NOTE | 2018-05-07 21:19 | RADRPT ---
Vent Rate: 83 bpm RR Interval: 0 msec LA Interval: 146 msec QRS Duration: 76 msec QT Interval: 398 msec QTC Interval: 467 msec P-R-T [place]: 57 - 46 - 25 degrees Normal sinus rhythm ST amp; T wave abnormality, consider anterior ischemia Abnormal ECG Electronically Signed By: Sam Mcgee [id number]
[2018-05-08] VITALS (45 sets, daily range): BP systolic 105–240; BP diastolic 52–223; PULSE 60–133; RESP 5–24; TEMP 95.8–101.8
[2018-05-08] MEDS: ACCU-CHEK XX SCH ×9 (02:30→23:18)
[2018-05-08] MEDS ORDERED: EPINEPHrine 4 MG in DEXTROSE 5% 246 ML IV SCH (07:00)
[2018-05-08] MEDS ORDERED: INSULIN HUMAN REGULAR 100 UNIT in SOD CHLORIDE 0.9% 99 ML IV SCH (07:00)
[2018-05-08] MEDS ORDERED: ISOFLURANE 15 MIN ONE (07:00)
[2018-05-08] MEDS ORDERED: NITROGLYCERIN 50 MG/D5W 250 ML BTL ONE (07:00)
[2018-05-08] MEDS ORDERED: DOPamine-D5W 1.6 MG/ML 250 ML ONE (07:00)
[2018-05-08] MEDS ORDERED: PHENYLephrine 20MG IN 250 ML 250 ML IV SCH (07:30)
--- NOTE | 2018-05-08 07:35 | PREAC ---
Date/Time of Note Date/Time of Note DATE: 05/08/18 TIME: 07:33 Anesthesia Eval and Record Evaluation Time Pre-Procedure Interview DATE: 05/08/18 TIME: 07:33 Age 62 Sex female NPO: 8 hrs Preoperative diagnosis CAD Planned procedure CABG Past Medical History Past Medical History: Includes Cardio: HTN, Dyslipidemia, [place], CAD Endo: Diabetes GI: Morbid obesity Surgery & Anesthesia Issues No known issue Meds Anticoagulation: No Beta Yolanda within 24 hr: Yes Reported Medications [Metformin Hcl] No Conflict Check 10/11/09 Atorvastatin (Lipitor) 20 Mg Tablet 10/11/09 Atenolol* (Atenolol*) 25 Mg Tablet 10/11/09 Current Medications Acetaminophen (Tylenol Tab) 650 mg Q6H PRN PO MILD PAIN(1-3)OR ELEVATED TEMP; Start 05/03/18 at 23:30 IV Flush (NS 3 ml) 3 ml PER PROTOCOL IV ; Start 05/04/18 at 01:00 Ondansetron HCl (Zofran Inj) 4 mg Q6H PRN IV NAUSEA AND/OR VOMITING; Start 05/04/18 at 01:00 Aspirin (Aspirin) 81 mg DAILY PO Last administered on 05/07/18at 08:08; Admin Dose 81 MG; Start 05/04/18 at 09:00 Nitroglycerin (Nitroglycerin (Sl Tab) 0.4 Mg) 1 tab Q5M PRN SL CHEST PAIN; Start 05/04/18 at 01:00 Acetaminophen (Tylenol Tab) 650 mg Q6H PRN PO PAIN LEVEL 1-3 OR FEVER; Start 05/04/18 at 01:00 Acetaminophen/ Hydrocodone Bitart ([place] (5/325)) 1 tab Q6H PRN PO PAIN LEVEL 4-6 Last administered on 05/05/18at 19:52; Admin Dose 1 TAB; Start 05/04/18 at 01:00 Enoxaparin Sodium (Lovenox) 40 mg DAILY SC Last administered on 05/07/18at 08:18; Admin Dose 40 MG; Start 05/04/18 at 09:00 Albuterol/ Ipratropium (Duoneb) 3 ml Q2H RESP THERAPY PRN HHN SHORTNESS OF BREATH; Start 05/04/18 at 01:00 Atorvastatin Calcium (Lipitor) 40 mg QHS PO Last administered on 05/07/18at 20:49; Admin Dose 40 MG; Start 05/04/18 at 21:00 Miscellaneous Information 1 ea NOTE XX ; Start 05/04/18 at 01:00 Glucose (Glutose) 15 gm Q15M PRN PO DECREASED GLUCOSE; Start 05/04/18 at 01:00 Glucose (Glutose) 22.5 gm Q15M PRN PO DECREASED GLUCOSE; Start 05/04/18 at 01:00 Dextrose (D50w Syringe) 25 ml Q15M PRN IV DECREASED GLUCOSE; Start 05/04/18 at 01:00 Dextrose (D50w Syringe) 50 ml Q15M PRN IV DECREASED GLUCOSE; Start 05/04/18 at 01:00 Glucagon (Glucagen) 1 mg Q15M PRN IM DECREASED GLUCOSE; Start 05/04/18 at 01:00 Glucose (Glutose) 15 gm Q15M PRN BUCCAL DECREASED GLUCOSE; Start 05/04/18 at 01:00 Diagnostic Test (Pha) (Accu-Chek) 1 ea 02 XX ; Start 05/05/18 at 02:00 Insulin Aspart (Novolog Insulin Pen) NOVOLOG *MILD* ALGORITHM WITH MEALS BEDTIME SC Last administered on 05/07/18at 21:01; Admin Dose 2 UNIT; Start 05/04/18 at 17:55 Metoprolol Tartrate (Lopressor) 25 mg BID PO Last administered on 05/07/18at 20:49; Admin Dose 25 MG; Start 05/04/18 at 21:00 Epinephrine 4 mg/ Dextrose 250 ml @ 0 mls/hr INTRA-OP IV ; Start 05/08/18 at 07:00; Stop 05/08/18 at 16:00 Phenylephrine HCl 250 ml @ 0 mls/hr INTRA-OP IV ; Start 05/08/18 at 07:30; Stop 05/08/18 at 16:00 Insulin Human Regular 100 unit/ Sodium Chloride 100 ml @ 0 mls/hr INTRA-OP IV ; Start 05/08/18 at 07:00; Stop 05/08/18 at 16:00 Meds reviewed: Yes Allergies Coded Allergies: No Known Drug Allergies (Verified Allergy, Mild, 10/11/09) Allergies Reviewed: Yes Labs/Studies Labs Reviewed: Reviewed by anesthesiologist Result Diagram: 05/08/18 0419 05/08/18 0419 Laboratory Tests 05/08/18 04:19 Blood Bank Test 1/6/19 14:11 Antibody Screen NEGATIVE Blood Product Summary Counts Blood Type A POSITIVE Crossmatch Red Blood Cells test: N/A Studies: ECG Pre-procedure Exam Last vitals Vital Signs Date Temp Pulse Resp B/P (MAP) Pulse Ox O2 O2 Flow FiO2 Time Delivery Rate 05/08/18 85 04:00 05/08/18 98.4 19 169/72 98 04:00 (104) 05/07/18 Room Air 15:03 Airway: Adequate mouth opening, Adequate thyromental dist Mallampati: Mallampati II Teeth: Normal Lung: Normal Heart: Normal ASA Physical Status ASA physical status: 4 Emergency: None Planned Anesthetic General/MAC: ETT Planned Pain Management Parenteral pain med Pre-operative Attestations Prior to commencing anesthesia and surgery, the patient was re-evaluated, there was verification of: *The patient's identity *The results of appropriate recent lab work and preoperative vital signs *The above evaluation not changing prior to induction *Anesthetic plan, risk benefits, alternative and complications discussed with patient/family; questions answered; patient/family understands, accepts and wishes to proceed. BERTHA SWIFT MD May 08, 2018 07:35
--- NOTE | 2018-05-08 07:36 | HPN ---
Date/Time of Note Date/Time of Note DATE: 05/08/18 TIME: 07:36 Interval H&P Admission Note Pt. seen H&P reviewed: No system changes MANUEL TORRES MD May 08, 2018 07:36
[2018-05-08] MEDS ORDERED: MIDAZOLAM 5 ML ONE ×2 (07:41→13:13)
[2018-05-08] MEDS ORDERED: PHENYLephrine (100 MCG/ML) 5ML SYG ONE ×3 (07:44→09:57)
[2018-05-08] MEDS ORDERED: MAGNESIUM SULFATE (MG) 50% 10 ML INJ ONE (07:47)
[2018-05-08] MEDS ORDERED: POTASSIUM CHLORIDE 40 MEQ INJ ONE (07:47)
[2018-05-08] MEDS ORDERED: HEPARIN 1000 UNITS/ML 10 ML INJ ONE ×3 (07:47→09:11)
[2018-05-08] MEDS ORDERED: LIDOCAINE 100 MG SYRINGE ONE (07:47)
[2018-05-08] MEDS ORDERED: MANNITOL 20% 500 ML ONE (07:48)
[2018-05-08] MEDS ORDERED: CA CHLORIDE 10% 10 ML SYRINGE ONE (07:48)
[2018-05-08] MEDS ORDERED: FUROSEMIDE 20 MG INJ ONE ×2 (07:48→12:12)
[2018-05-08] MEDS ORDERED: ALBUMIN HUMAN 25% 200 ML ONE (07:48)
[2018-05-08] MEDS ORDERED: AMINOCAPROIC ACID 5 GM INJ ONE (07:48)
[2018-05-08] MEDS ORDERED: NA BICARBONATE 8.4% 50 ML SYG ONE (07:49)
[2018-05-08] MEDS ORDERED: PHENYLephrine 10 MG INJ ONE (07:49)
[2018-05-08] MEDS: INSULIN ASPART [NOVOLOG] 3 ML PEN SC SCH ×2 (07:55→11:50)
[2018-05-08] MEDS ORDERED: CEFAZOLIN 1 GM INJ ONE ×2 (08:31→11:15)
[2018-05-08] MEDS ORDERED: VANCOMYCIN 1 GM INJ ONE (08:41)
[2018-05-08] MEDS ORDERED: PAPAVERINE 60 MG INJ ONE (08:41)
[2018-05-08] MEDS: ASPIRIN 81 MG TAB PO SCH (09:00)
[2018-05-08] MEDS: METOPROLOL 25 MG TAB PO SCH ×2 (09:00→21:00)
[2018-05-08] MEDS: ENOXAPARIN 40 MG/0.4 ML SYG SC SCH (09:00)
--- NOTE | 2018-05-08 09:30 | PN ---
Date/Time of Note Date/Time of Note DATE: 05/08/18 TIME: 09:30 Assessment/Plan VTE Prophylaxis Risk score (from Ns)>0 risk: 2 SCD applied (from Ns): Yes Pharmacological prophylaxis: heparin Lines/Catheters IV Catheter Type (from Nrsg): [place] Urinary Cath still in place: No Assessment/Plan Assessment/Plan 1. CAD s/p CABG with triple vessel disease - CT surgery on board and appreciate consultation. Patient tolerated CABG without any acute complications. Remains intubated on Nitro drip due to HTN - weaned off Dopamine - Cardiology on board and appreciate recommendations. 2. Hypertension - On Nitro and pain control for elevated BP - Management per CT surgery/Cardiology 3. Dyslipidemia - Will continue on statin. 4. Disposition - Continue monitoring in ICU s/p CABG for mechanical ventilation management and close monitoring >35 minutes of critical care time spent with patient and daughter at bedside Result Diagram: 05/08/18 0419 05/08/18 0419 Results 24hrs Laboratory Tests Test 05/07/18 11:10 05/07/18 17:23 05/07/18 20:48 05/08/18 03:01 Bedside Glucose 234 H 175 237 H 144 Test 05/08/18 04:19 05/08/18 06:29 White Blood Count 7.7 Red Blood Count 3.72 L Hemoglobin 11.0 L Hematocrit 33.3 L Mean Corpuscular Volume 89.5 Mean Corpuscular 29.6 Hemoglobin Mean Corpuscular 33.0 Hemoglobin Concent Red Cell Distribution 13.6 Width Platelet Count 212 Mean Platelet Volume 10.3 Immature Granulocytes % 0.400 Neutrophils % 59.5 Lymphocytes % 30.7 Monocytes % 6.0 Eosinophils % 3.0 Basophils % 0.4 Nucleated Red Blood 0.0 Cells % Immature Granulocytes # 0.030 Neutrophils # 4.6 Lymphocytes # 2.4 Monocytes # 0.5 Eosinophils # 0.2 Basophils # 0.0 Nucleated Red Blood 0.0 Cells # Prothrombin Time 12.5 Prothrombin Time Ratio 1.0 INR International 0.92 Normalized Ratio Activated 31.2 Partial Thromboplast Time Thrombin Time 16.9 Sodium Level 141 Potassium Level 4.0 Chloride Level 105 Carbon Dioxide Level 26 Anion Gap 10 Blood Urea Nitrogen 15 Creatinine 0.61 Est Glomerular Filtrat > 60 Rate mL/min Glucose Level 164 Calcium Level 9.6 Phosphorus Level 4.1 Magnesium Level 2.0 Bedside Glucose 183 Subjective 24 Hr Interval Summary Free Text/Dictation Patient is s/p CABG and remains intubated. Opening eyes and in no acute distress. Exam/Review of Systems Vital Signs Vitals Vital Signs Date Temp Pulse Resp B/P (MAP) Pulse Ox O2 O2 Flow FiO2 Time Delivery Rate 05/08/18 85 04:00 05/08/18 98.4 19 169/72 98 04:00 (104) 05/07/18 Room Air 15:03 Intake and Output 05/07/18 05/07/18 05/08/18 1515:00 23:00 07:00 IntakeIntake Total 800 ml 200 ml BalanceBalance 800 ml 200 ml Exam General: Patient is laying in bed, intubating and opening eyes to touch and voice Head: Normocephalic atraumatic Eyes: EOMI, pupils reactive to light Neck: Supple, nontender, midline, R IJ in place Respiratory: Clear to auscultation bilaterally. no wheezing or rhonchi Chest chest tube in place with minimal sanguinous fluid drainage. sternal dressing in place with no discharge or drainage Cardiovascular: S1, S2, tachycardia, regular rhythm, no obvious murmurs Gastrointestinal: soft, non-tender to palpation, no distended bowel sounds heard. Neurological: Moves all extremities spontaneously Skin: No new skin lesions Medications Medications Current Medications Acetaminophen (Tylenol Tab) 650 mg Q6H PRN PO MILD PAIN(1-3)OR ELEVATED TEMP; Start 05/03/18 at 23:30 IV Flush (NS 3 ml) 3 ml PER PROTOCOL IV ; Start 05/04/18 at 01:00 Ondansetron HCl (Zofran Inj) 4 mg Q6H PRN IV NAUSEA AND/OR VOMITING; Start 05/04/18 at 01:00 Aspirin (Aspirin) 81 mg DAILY PO Last administered on 05/07/18at 08:08; Admin Dose 81 MG; Start 05/04/18 at 09:00 Nitroglycerin (Nitroglycerin (Sl Tab) 0.4 Mg) 1 tab Q5M PRN SL CHEST PAIN; Start 05/04/18 at 01:00 Acetaminophen (Tylenol Tab) 650 mg Q6H PRN PO PAIN LEVEL 1-3 OR FEVER; Start 05/04/18 at 01:00 Acetaminophen/ Hydrocodone Bitart ([place] (5/325)) 1 tab Q6H PRN PO PAIN LEVEL 4-6 Last administered on 05/05/18at 19:52; Admin Dose 1 TAB; Start 05/04/18 at 01:00 Enoxaparin Sodium (Lovenox) 40 mg DAILY SC Last administered on 05/07/18at 08:18; Admin Dose 40 MG; Start 05/04/18 at 09:00 Albuterol/ Ipratropium (Duoneb) 3 ml Q2H RESP THERAPY PRN HHN SHORTNESS OF BREATH; Start 05/04/18 at 01:00 Atorvastatin Calcium (Lipitor) 40 mg QHS PO Last administered on 05/07/18at 20:49; Admin Dose 40 MG; Start 05/04/18 at 21:00 Miscellaneous Information 1 ea NOTE XX ; Start 05/04/18 at 01:00 Glucose (Glutose) 15 gm Q15M PRN PO DECREASED GLUCOSE; Start 05/04/18 at 01:00 Glucose (Glutose) 22.5 gm Q15M PRN PO DECREASED GLUCOSE; Start 05/04/18 at 01:00 Dextrose (D50w Syringe) 25 ml Q15M PRN IV DECREASED GLUCOSE; Start 05/04/18 at 01:00 Dextrose (D50w Syringe) 50 ml Q15M PRN IV DECREASED GLUCOSE; Start 05/04/18 at 01:00 Glucagon (Glucagen) 1 mg Q15M PRN IM DECREASED GLUCOSE; Start 05/04/18 at 01:00 Glucose (Glutose) 15 gm Q15M PRN BUCCAL DECREASED GLUCOSE; Start 05/04/18 at 01:00 Diagnostic Test (Pha) (Accu-Chek) 1 ea 02 XX ; Start 05/05/18 at 02:00 Insulin Aspart (Novolog Insulin Pen) NOVOLOG *MILD* ALGORITHM WITH MEALS BEDTIME SC Last administered on 05/07/18at 21:01; Admin Dose 2 UNIT; Start 05/04/18 at 17:55 Metoprolol Tartrate (Lopressor) 25 mg BID PO Last administered on 05/07/18at 20:49; Admin Dose 25 MG; Start 05/04/18 at 21:00 Epinephrine 4 mg/ Dextrose 250 ml @ 0 mls/hr INTRA-OP IV ; Start 05/08/18 at 07:00; Stop 05/08/18 at 16:00 Phenylephrine HCl 250 ml @ 0 mls/hr INTRA-OP IV ; Start 05/08/18 at 07:30; Stop 05/08/18 at 16:00 Insulin Human Regular 100 unit/ Sodium Chloride 100 ml @ 0 mls/hr INTRA-OP IV ; Start 05/08/18 at 07:00; Stop 05/08/18 at 16:00 NEIL CEDEÑO MD May 08, 2018 09:30
[2018-05-08] MEDS ORDERED: ALBUMIN HUMAN 5% 0 ML ONE (09:43)
[2018-05-08] MEDS ORDERED: POTASSIUM CHLORIDE 100 ML ONE (09:43)
[2018-05-08] MEDS ORDERED: PROTAMINE 250 MG INJ ONE (11:19)
[2018-05-08] MEDS ORDERED: hydrALAzine 20 MG INJ ONE ×2 (12:21→13:48)
[2018-05-08] MEDS ORDERED: LIDOCAINE 2% (SDV) 5 ML INJ ONE (12:29)
[2018-05-08] MEDS ORDERED: ROCURONIUM 50 MG INJ ONE (12:29)
[2018-05-08] MEDS ORDERED: ETOMIDATE 20 MG INJ ONE (12:29)
--- NOTE | 2018-05-08 13:51 | PAC ---
Date/Time of Note Date/Time of Note DATE: 05/08/18 TIME: 13:50 Post-Anesthesia Notes Post-Anesthesia Note Last documented vital signs Vital Signs Date Temp Pulse Resp B/P (MAP) Pulse Ox O2 O2 Flow FiO2 Time Delivery Rate 05/08/18 85 04:00 05/08/18 98.4 19 169/72 98 04:00 (104) 05/07/18 Room Air 15:03 Activity: WNL Respiratory function: WNL Cardiovascular function: WNL Mental status: Baseline Pain reasonably controlled: Yes Hydration appropriate: Yes Nausea/Vomiting absent: Yes Comments BP:146/77,pulse:89, spo2:98%, T:98,8 BERTHA SWIFT MD May 08, 2018 13:51
--- NOTE | 2018-05-08 13:59 | OPR ---
Date/Time of Note Date/Time of Note DATE: 05/08/18 TIME: 13:50 Operative Report Procedure Date: May 08, 2018 Preoperative Diagnosis Coronary artery disease Status post non-ST elevation NE Postoperative Diagnosis Same Operation/Procedure Performed CABG times 3 1 MILLER to LAD 2 SVG to first obtuse marginal branch of the circumflex artery 3 SVG to distal circumflex artery/PDA 4 Endoscopic saphenous vein harvesting from the left lower extremity 5 LAD coronary endarterectomy Surgeon see signature line Staff Engineer Jl Alcaraz Second Staff Engineer: YAMILET MEDINA MD Anesthesia Type: general Estimated Blood Loss: other Transfusion none Specimen None Grafts/Implants none Complications none Pt Condition Post Procedure: stable Disposition: PACU Indications Response comp occasions alternative therapies explained to the patient and the daughter all questions answered Disc and benefits I recommend to the patient and the daughter included but not limited to bleeding infection damage to the heart heart attack NE stroke respiratory failure renal failure wound infection wound dehiscence is high risk nature of the operation fully explained and stressed to the patient Procedure Description The patient was placed in supine position prepped and draped in usual sterile fashion timeout was called antibiotics was given Simultaneously saphenous vein was harvested from the left lower extremity through endoscopic techniques from just above the knee down to the ankle Sternotomy incision was made from the sternum down to the xiphoid process the sternum was opened in the mid aspect of the sternum left internal mammary artery was harvested using electrocautery and titanium clip Pericardium was opened patient was fully heparinized cannulation sutures of 3-0 Prolene with pledgets were applied to the distal ascending aorta mid ascending aorta body of the right atrium right atrial appendage After adequate documentation of a CT aorta was cannulated followed by cannulation of the right atrium with two-stage venous cannula antegrade and retrograde cardioplegia cannulas were placed Patient was placed on cardiopulmonary bypass after stabilization of unbypassed cross-clamp was applied to the soft part of the aorta The heart was arrested using antegrade and retrograde cardioplegia given [address] high potassium blood based supplemented by topical slush to the surface of the heart which was continued every 15-20 minutes as cardioplegia was given antegrade and retrograde every 15-20 minutes when the cross-clamp was on The heart was inspected coronary arteries were inspected LAD was highly calcified the first obtuse marginal branch of the circumflex was 1.5 mm vessel the distal circumflex/PDA was 1.25 mm LAD was 1.5 mm Saphenous vein was used to bypass the PDA and the obtuse marginal branch of the circumflex the PDA came off the left-sided system and the mammary was anastomosed to the LAD all distal anastomoses were done to 8 mm longitudinal coronary arteriotomy was 7-0 Prolene suture in a continuous manner to the beveled end of the vein or the mammary artery LAD endarterectomy was also done localized The proximal 2 anastomoses were done in the same cross-clamp 4.5 mm punches 6-0 Prolene continuous suture technique end-to-side manner Head was placed in steep Trendelenburg position cross-clamp removed the heart and the graft de-aired Heart came off cardiopulmonary bypass with no significant inotropic support Protamine given cannulas removed sutures tied 2 ventricular pacing wires 2 mediastinal chest tubes and left chest Sebastián tube were placed brought out through lower stab was secured to skin using silk sutures The sternum was closed using the cable system [id number] Linea alba and the deep tissues were irrigated and closed in 2 layers of #1 Vicryl suture for the linea alba 2-0 Vicryl suture for subcu 4-0 Monocryl suture in a running subcuticular skin closure the leg was closed in a similar fashion Vision tolerated procedure well stable to the ICU MANUEL TORRES MD May 08, 2018 13:59
[2018-05-08] MEDS ORDERED: morphine (1 MG/ML) 10ML SYRINGE IV PRN (14:00)
[2018-05-08] MEDS ORDERED: morphine 10 MG INJ IV PRN (14:00)
[2018-05-08] MEDS ORDERED: MEPERIDINE 25 MG INJ IV PRN (14:00)
[2018-05-08] MEDS: NITROGLYCERIN 50 MG/D5W (PMX) 250 ML IV SCH ×3 (14:00→20:25)
[2018-05-08] MEDS ORDERED: hydrALAzine 20 MG INJ IV PRN (14:00)
[2018-05-08] MEDS ORDERED: MIDAZOLAM 1 MG/ML 2 ML INJ IV PRN (14:00)
[2018-05-08] MEDS ORDERED: LABETALOL HCL 20MG INJ IV PRN (14:00)
[2018-05-08] MEDS ORDERED: DOPamine-D5W 1.6 MG/ML 250 ML IV SCH (14:00)
[2018-05-08] MEDS ORDERED: DIPHENHYDRAMINE 50 MG INJ IV PRN (14:00)
[2018-05-08] MEDS ORDERED: ONDANSETRON 4 MG INJ IV PRN ×3 (14:00→14:30)
[2018-05-08] MEDS ORDERED: METOCLOPRAMIDE 10 MG INJ IV PRN (14:00)
[2018-05-08] MEDS ORDERED: morphine 4 MG/ML VIAL ONE (14:04)
[2018-05-08] MEDS ORDERED: morphine 4 MG/ML VIAL IV STA (14:17)
[2018-05-08] MEDS ORDERED: OXYCODONE/ACETAMINOPHEN (5/325) TAB PO PRN ×2 (14:30)
[2018-05-08] MEDS ORDERED: MAGNESIUM SULFATE 1 GM/D5W 100 ML IVPB PRN (14:30)
[2018-05-08] MEDS ORDERED: morphine 10 MG INJ IV ONE (14:30)
[2018-05-08] MEDS ORDERED: HYDROmorphONE 0.5 MG/0.5 ML SYG IV PRN ×2 (14:30)
[2018-05-08] MEDS: morphine (1 MG/ML) 10ML SYRINGE IV PRN ×2 (15:07→17:10)
[2018-05-08] MEDS: HYDROmorphONE 0.5 MG/0.5 ML SYG IV PRN ×3 (15:28→20:20)
[2018-05-08] MEDS: POTASSIUM CHLORIDE 50 ML IVPB PRN ×5 (15:33→23:38)
[2018-05-08] MEDS ORDERED: DEXTROSE 50% 50 ML SYRINGE IV PRN ×2 (16:00)
[2018-05-08] MEDS: INSULIN HUMAN REGULAR 100 UNIT in SOD CHLORIDE 0.9% 99 ML IV SCH (16:12)
--- NOTE | 2018-05-08 17:11 | CONS ---
Date/Time of Note Date/Time of Note DATE: 05/08/18 TIME: 17:01 Assessment/Plan Assessment/Plan Assessment/Plan Severe obstructive coronary artery disease, s/p CABG 05/08/18 MILLER-LAD, SVG-OM, SVG-PDA Preserved Ejection Fraction Diabetes Hypertension -pt s/p CABG -cont ASA, Statin -No BB at current time given coming off dopamine -Vent management Result Diagram: 05/08/18 1437 05/08/18 1437 Results 24hrs Laboratory Tests Test 05/07/18 17:23 05/07/18 20:48 05/08/18 03:01 05/08/18 04:19 Bedside Glucose 175 237 H 144 White Blood 7.7 Count Red Blood Count 3.72 L Hemoglobin 11.0 L Hematocrit 33.3 L Mean Corpuscular 89.5 Volume Mean Corpuscular 29.6 Hemoglobin Mean Corpuscular 33.0 Hemoglobin Cara nt Red Cell 13.6 Distribution Width Platelet Count 212 Mean Platelet 10.3 Volume Immature 0.400 Granulocytes % Neutrophils % 59.5 Lymphocytes % 30.7 Monocytes % 6.0 Eosinophils % 3.0 Basophils % 0.4 Nucleated Red 0.0 Blood Cells % Immature 0.030 Granulocytes # Neutrophils # 4.6 Lymphocytes # 2.4 Monocytes # 0.5 Eosinophils # 0.2 Basophils # 0.0 Nucleated Red 0.0 Blood Cells # Prothrombin Time 12.5 Prothrombin Time 1.0 Ratio INR 0.92 International Normalized Ratio Activated 31.2 Partial Thrombop last Time Thrombin Time 16.9 Sodium Level 141 Potassium Level 4.0 Chloride Level 105 Carbon Dioxide 26 Level Anion Gap 10 Blood Urea 15 Nitrogen Creatinine 0.61 Est Glomerular > 60 Filtrat Rate mL/min Glucose Level 164 Calcium Level 9.6 Phosphorus Level 4.1 Magnesium Level 2.0 Test 05/08/18 06:29 05/08/18 13:43 05/08/18 14:07 05/08/18 14:37 Bedside Glucose 183 148 Blood Gas Blood arterial Specimen Source Arterial Blood 05/08/2018 2:30:47 Date Drawn PM Arterial Blood 7.374 pH (Temp corrected) Arterial Blood 41.1 pCO2 (Temp correct) Arterial Blood 92.7 pO2 (Temp corrected) Arterial Blood 23.4 HCO3 Arterial Blood -1.7 Base Excess Arterial Blood 96.7 Oxygen Saturatio n Jacky Test N/A Arterial Blood A-Line Gas Puncture Site Arterial 0.3 Blood Carboxyhem oglobin Arterial Blood 0.4 Methemoglobin Blood Gas A-a O2 289.9 H Differential Oxyhemoglobin 96.0 Percent Blood Gas 37.0 Temperature Blood Gas 14.0 Respiration Rate Blood Gas Actual 14 Respiration Rate Blood Gas VENT - AC Modality FiO2 60.0 Blood Gas Tidal 500.0 Volume Blood Gas Low 5.0 PEEP Setting Blood Gas TM Notified Whom Blood Gas 05/08/2018 2:45:55 Notified Time PM White Blood 10.1 # Count Red Blood Count 4.05 L Hemoglobin 12.0 Hematocrit 35.5 L Mean Corpuscular 87.7 Volume Mean Corpuscular 29.6 Hemoglobin Mean Corpuscular 33.8 Hemoglobin Cara nt Red Cell 13.8 Distribution Width Platelet Count 147 # Mean Platelet 10.5 H Volume Immature 1.300 H Granulocytes % Neutrophils % 66.5 Lymphocytes % 25.3 Monocytes % 5.9 Eosinophils % 0.8 Basophils % 0.2 Nucleated Red 0.0 Blood Cells % Immature 0.130 H Granulocytes # Neutrophils # 6.7 Lymphocytes # 2.5 Monocytes # 0.6 Eosinophils # 0.1 Basophils # 0.0 Nucleated Red 0.0 Blood Cells # Prothrombin Time 15.0 H Prothrombin Time 1.2 Ratio INR 1.17 International Normalized Ratio Activated 28.9 Partial Thrombop last Time Sodium Level 146 H Potassium Level 3.2 L Chloride Level 111 H Carbon Dioxide 22 Level Anion Gap 13 Blood Urea 12 Nitrogen Creatinine 0.68 Est Glomerular > 60 Filtrat Rate mL/min Glucose Level 176 Calcium Level 9.1 Magnesium Level 3.4 H Test 05/08/18 14:47 05/08/18 14:59 05/08/18 16:07 Blood Gas BLMV Specimen Source Arterial Blood 05/08/2018 2:37:59 Date Drawn PM Arterial Blood OTHER Gas Puncture Site Jacky Test N/A Mixed Venous 45.7 H Blood PO2 Mixed Venous 82.9 H Blood O2 Saturation Mixed Venous 13.1 Blood Total Hemoglobin Mixed Venous 82.2 Blood Oxyhemoglo bin Mixed Venous 0.4 Bld Carboxyhemog lobin Mixed Venous 0.5 Blood Methemoglo bin Blood Gas 37.0 Temperature Blood Gas 14.0 Respiration Rate Blood Gas Actual 14 Respiration Rate Blood Gas VENT - AC Modality FiO2 60.0 Blood Gas Tidal 500.0 Volume Blood Gas Low 5.0 PEEP Setting Blood Gas TM Notified Whom Blood Gas 05/08/2018 2:52:02 Notified Time PM Bedside Glucose 180 199 Consultation Date/Type/Reason Admit Date/Time May 03, 2018 at 23:07 Initial Consult Date Type of Consult cv 24 HR Interval Summary Free Text/Dictation pt s/p CABG. As per nursing staff, weaned off dopamine Exam/Review of Systems Vital Signs Vitals Vital Signs Date Temp Pulse Resp B/P (MAP) Pulse Ox O2 O2 Flow FiO2 Time Delivery Rate 05/08/18 130 22 136/67 92 16:15 (90) 05/08/18 97.3 16:00 05/07/18 Room Air 15:03 Intake and Output 05/07/18 05/07/18 05/08/18 1515:00 23:00 07:00 IntakeIntake Total 800 ml 200 ml BalanceBalance 800 ml 200 ml Exam intubated, nad, looks at me when name called Head: normocephalic ENMT: intubated Respiratory: other (course bs, no wheeze) Cardiovascular: regular rate and rhythm, other (s1s2) Gastrointestinal: soft, non-tender, bowel sounds Genitourinary - Female: other (tiwari) Extremities: edema Medications Medications Current Medications Acetaminophen (Tylenol Tab) 650 mg Q6H PRN PO MILD PAIN(1-3)OR ELEVATED TEMP; Start 05/03/18 at 23:30 IV Flush (NS 3 ml) 3 ml PER PROTOCOL IV ; Start 05/04/18 at 01:00 Ondansetron HCl (Zofran Inj) 4 mg Q6H PRN IV NAUSEA AND/OR VOMITING; Start 05/04/18 at 01:00 Nitroglycerin (Nitroglycerin (Sl Tab) 0.4 Mg) 1 tab Q5M PRN SL CHEST PAIN; Start 05/04/18 at 01:00 Acetaminophen/ Hydrocodone Bitart ([place] (5/325)) 1 tab Q6H PRN PO PAIN LEVEL 4-6 Last administered on 05/05/18at 19:52; Admin Dose 1 TAB; Start 05/04/18 at 01:00 Enoxaparin Sodium (Lovenox) 40 mg DAILY SC Last administered on 05/07/18at 08:18; Admin Dose 40 MG; Start 05/04/18 at 09:00 Albuterol/ Ipratropium (Duoneb) 3 ml Q2H RESP THERAPY PRN HHN SHORTNESS OF BREATH; Start 05/04/18 at 01:00 Atorvastatin Calcium (Lipitor) 40 mg QHS PO Last administered on 05/07/18at 20:49; Admin Dose 40 MG; Start 05/04/18 at 21:00 Miscellaneous Information 1 ea NOTE XX ; Start 05/04/18 at 01:00 Glucose (Glutose) 15 gm Q15M PRN PO DECREASED GLUCOSE; Start 05/04/18 at 01:00 Glucose (Glutose) 22.5 gm Q15M PRN PO DECREASED GLUCOSE; Start 05/04/18 at 01:00 Dextrose (D50w Syringe) 25 ml Q15M PRN IV DECREASED GLUCOSE; Start 05/04/18 at 01:00 Dextrose (D50w Syringe) 50 ml Q15M PRN IV DECREASED GLUCOSE; Start 05/04/18 at 01:00 Glucagon (Glucagen) 1 mg Q15M PRN IM DECREASED GLUCOSE; Start 05/04/18 at 01:00 Glucose (Glutose) 15 gm Q15M PRN BUCCAL DECREASED GLUCOSE; Start 05/04/18 at 01:00 Diagnostic Test (Pha) (Accu-Chek) 1 ea 02 XX ; Start 05/05/18 at 02:00 Metoprolol Tartrate (Lopressor) 25 mg BID PO Last administered on 05/07/18at 20:49; Admin Dose 25 MG; Start 05/04/18 at 21:00 Morphine Sulfate (morphine (REC)) 2 mg PACU ORDER PRN IV MILD PAIN LEVEL 1-3; Start 05/08/18 at 14:00; Stop 05/08/18 at 21:00 Morphine Sulfate (morphine (REC)) 4 mg PACU ORDER PRN IV MODERATE PAIN LEVEL 4-6 Last administered on 05/08/18at 15:07; Admin Dose 4 MG; Start 05/08/18 at 14:00; Stop 05/08/18 at 21:00 Ondansetron HCl (Zofran Inj) 4 mg PACU ORDER PRN IV NAUSEA AND/OR VOMITING; Start 05/08/18 at 14:00; Stop 05/08/18 at 21:00 Metoclopramide HCl (Reglan) 10 mg PACU ORDER PRN IV NAUSEA AND/OR VOMITING; Start 05/08/18 at 14:00; Stop 05/08/18 at 21:00 Labetalol HCl (Labetalol) 5 mg PACU ORDER PRN IV ELEVATED BLOOD PRESSURE; Start 05/08/18 at 14:00; Stop 05/08/18 at 21:00 Hydralazine HCl (Apresoline) 5 mg PACU ORDER PRN IV ELEVATED BLOOD PRESSURE Last administered on 05/08/18at 16:34; Admin Dose 5 MG; Start 05/08/18 at 14:00; Stop 05/08/18 at 21:00 Meperidine HCl (Demerol) 25 mg PACU ORDER PRN IV POST OPERATIVE SHIVERING; Start 05/08/18 at 14:00; Stop 05/08/18 at 21:00 Diphenhydramine HCl (Benadryl) 25 mg PACU ORDER PRN IV PRURITUS; Start 05/08/18 at 14:00; Stop 05/08/18 at 21:00 Midazolam HCl (Versed) 2 mg PACU ORDER PRN IV ANXIETY; Start 05/08/18 at 14:00; Stop 05/08/18 at 21:00 Nitroglycerin/ Dextrose 250 ml @ 1.5 mls/hr PER PROTOCOL IV Last administered on 05/08/18at 16:00; Admin Dose 60 MLS/HR; Start 05/08/18 at 14:00 Dopamine HCl/ Dextrose 250 ml @ 5.775 mls/ hr PER PROTOCOL IV ; Start 05/08/18 at 14:00 Morphine Sulfate (morphine) 10 mg Q4H PRN IV SEVERE PAIN LEVEL 7-10; Start 05/08/18 at 14:00 Potassium Chloride 40 meq/ Calcium Chloride 1 gm/Dextrose/ Sodium Chloride 1,030 ml @ 60 mls/hr [id number] IV ; Start 05/08/18 at 16:00 Hydromorphone HCl (Dilaudid) 0.2 mg Q15M PRN IV PAIN LEVEL 1-5; Start 05/08/18 at 14:30 Hydromorphone HCl (Dilaudid) 0.4 mg Q15M PRN IV PAIN LEVEL 6-10 Last administered on 05/08/18at 16:36; Admin Dose 0.4 MG; Start 05/08/18 at 14:30 Hydromorphone HCl (Dilaudid) 0.2 mg Q1H PRN IV PAIN LEVEL 1-5; Start 05/08/18 at 14:30 Hydromorphone HCl (Dilaudid) 0.4 mg Q1H PRN IV PAIN LEVEL 6-10; Start 05/08/18 at 14:30 Oxycodone/ Acetaminophen (Percocet (5/ 325)) 1 tab Q3H PRN PO PAIN LEVEL 1-5; Start 05/08/18 at 14:30 Oxycodone/ Acetaminophen (Percocet (5/ 325)) 2 tab Q3H PRN PO PAIN LEVEL 6-10; Start 05/08/18 at 14:30 Ondansetron HCl (Zofran Inj) 2 mg ONCE PRN IV NAUSEA AND/OR VOMITING; Start 05/08/18 at 14:30 Ondansetron HCl (Zofran Inj) 4 mg Q6H PRN IV NAUSEA AND/OR VOMITING; Start at 14:30 Famotidine (Pepcid Iv) 20 mg BID@08,20 IV ; Start 05/08/18 at 20:00 Aspirin (Aspirin) 325 mg DAILY PO ; Start 05/09/18 at 09:00 Acetaminophen (Tylenol Liquid) 650 mg Q3H PRN NGT ELEVATED TEMPERATURE; Start 05/08/18 at 14:30 Potassium Chloride 50 ml @ 50 mls/hr SEE DIRECTION PRN IVPB PENDING LAB VALUE Last administered on 05/08/18at 15:33; Admin Dose 50 MLS/HR; Start 05/08/18 at 14:30 Magnesium Sulfate/ Dextrose 100 ml @ 100 mls/hr PRN PRN IVPB PENDING LAB VALUE; Start 05/08/18 at 14:30 Nitroglycerin/ Dextrose 250 ml @ 1.5 mls/hr PER PROTOCOL IV ; Start 05/08/18 at 14:30 Diagnostic Test (Pha) (Accu-Chek) 1 ea Q1H XX Last administered on 05/08/18at 16:08; Admin Dose 1 EA; Start 05/08/18 at 16:00 Insulin Human Regular 100 unit/ Sodium Chloride 100 ml @ 0 mls/hr PER PROTOCOL IV Last administered on 05/08/18at 16:12; Admin Dose 9 MLS/HR; Start 05/08/18 at 16:00 Miscellaneous Information (* Miscellaneous Pharmacy Order) Treatment of Hypoglycemia: 1.BG 51... Per protocol XX ; Start 05/08/18 at 16:00 Dextrose (D50w Syringe) 25 ml Q15M PRN IV DECREASED GLUCOSE; Start 05/08/18 at 16:00 Dextrose (D50w Syringe) 50 ml Q15M PRN IV DECREASED GLUCOSE; Start 05/08/18 at 16:00 Vinny Simons DO May 08, 2018 17:10
[2018-05-08] MEDS: POTASSIUM CHLORIDE 40 MEQ, CALCIUM CHLORIDE 10% 1 GM in DEXTROSE 5%-0.225% NACL 1,000 ML IV SCH (17:50)
[2018-05-08] MEDS ORDERED: ALBUMIN HUMAN 5% 250 ML IV PRN (19:00)
[2018-05-08] MEDS: FAMOTIDINE 20 MG INJ IV SCH (20:01)
[2018-05-08] MEDS: ATORVASTATIN 40 MG TAB PO SCH (21:00)
[2018-05-08] MEDS ORDERED: ACETAMINOPHEN 650 MG SUPP PR PRN (22:30)
[2018-05-08] MEDS ORDERED: ACETAMINOPHEN 650 MG SUPP PR ONE (23:23)
[2018-05-09] VITALS (71 sets, daily range): BP systolic 107–157; BP diastolic 53–77; PULSE 84–119; RESP 6–30; TEMP 99–101
[2018-05-09] MEDS: ACCU-CHEK XX SCH ×25 (00:08→23:13)
[2018-05-09] MEDS ORDERED: VANCOMYCIN IV PER PHARMACY XX SCH (01:00)
[2018-05-09] MEDS: POTASSIUM CHLORIDE 50 ML IVPB PRN (01:18)
[2018-05-09] MEDS: PIPER-TAZO 3.375 GM IV (PMX) 100 ML IVPB SCH ×5 (01:25→23:25)
[2018-05-09] MEDS ORDERED: VANCOMYCIN 1.5 GM in SOD CHLORIDE 0.9% 250 ML IVPB SCH (03:30)
[2018-05-09] MEDS: INSULIN HUMAN REGULAR 100 UNIT in SOD CHLORIDE 0.9% 99 ML IV SCH ×3 (03:59→20:19)
[2018-05-09] MEDS: ONDANSETRON 4 MG INJ IV PRN ×2 (04:38→15:48)
[2018-05-09] MEDS: HYDROmorphONE 0.5 MG/0.5 ML SYG IV PRN ×3 (04:39→18:45)
[2018-05-09] MEDS: NITROGLYCERIN 50 MG/D5W (PMX) 250 ML IV SCH (05:49)
[2018-05-09] MEDS: FAMOTIDINE 20 MG INJ IV SCH ×2 (08:22→20:17)
--- NOTE | 2018-05-09 08:35 | PN ---
Date/Time of Note Date/Time of Note DATE: 05/09/18 TIME: 08:35 Assessment/Plan VTE Prophylaxis Risk score (from Ns)>0 risk: 12 SCD applied (from [facility] – [place], [place]): No SCD contraindicated: other Pharmacological prophylaxis: heparin Lines/Catheters IV Catheter Type (from [facility]): A Line Urinary Cath still in place: Yes Reason Cath still needed: terminal illness/intractable pain Assessment/Plan Assessment/Plan 1. CAD s/p CABG with triple vessel disease - CT surgery on board and appreciate consultation. Harry gonzalez d/c mark frankel am. Given am medications. Weaning off Nitro drip - Patient tolerated CABG without any acute complications. - Cardiology on board and appreciate recommendations. 2. Hypertension - On Nitro and pain control for elevated BP - Management per CT surgery/Cardiology 3. Dyslipidemia - Will continue on statin. 4. Fever - possible post surgical vs iatrogenic from bear bernadine - eaton cultures sent. - Lactic acid normalized 5. Disposition - Continue monitoring in ICU while being weaned from nitro and insulin drip >35 minutes of critical care time spent with patient Result Diagram: 05/09/18 0430 05/09/18 0400 Results 24hrs Laboratory Tests Test 05/08/18 13:43 05/08/18 14:07 05/08/18 14:37 05/08/18 14:47 Bedside Glucose 148 Blood Gas Blood arterial BLMV Specimen Source Arterial Blood 05/08/2018 2:30:4 05/08/2018 2:37:5 Date Drawn 7 PM 9 PM Arterial Blood 7.374 pH (Temp corrected ) Arterial Blood 41.1 pCO2 (Temp correct) Arterial Blood 92.7 pO2 (Temp corrected ) Arterial Blood 23.4 HCO3 Arterial Blood -1.7 Base Excess Arterial Blood 96.7 Oxygen Saturati on Jacky Test N/A N/A Arterial Blood A-Line OTHER Gas Puncture Site Arterial 0.3 Blood Carboxyhe moglobin Arterial Blood 0.4 Methemoglobin Blood Gas A-a 289.9 H O2 Differential Oxyhemoglobin 96.0 Percent Blood Gas 37.0 37.0 Temperature Blood Gas 14.0 14.0 Respiration Rate Blood Gas 14 14 Actual Respiration Rat e Blood Gas VENT - AC VENT - AC Modality FiO2 60.0 60.0 Blood Gas Tidal 500.0 500.0 Volume Blood Gas Low 5.0 5.0 PEEP Setting Blood Gas TM TM Notified Whom Blood Gas 05/08/2018 2:45:5 05/08/2018 2:52:0 Notified Time 5 PM 2 PM White Blood 10.1 # Count Red Blood Count 4.05 L Hemoglobin 12.0 Hematocrit 35.5 L Mean 87.7 Corpuscular Volume Mean 29.6 Corpuscular Hemoglobin Mean 33.8 Corpuscular Hemoglobin Conc ent Red Cell 13.8 Distribution Width Platelet Count 147 # Mean Platelet 10.5 H Volume Immature 1.300 H Granulocytes % Neutrophils % 66.5 Lymphocytes % 25.3 Monocytes % 5.9 Eosinophils % 0.8 Basophils % 0.2 Nucleated Red 0.0 Blood Cells % Immature 0.130 H Granulocytes # Neutrophils # 6.7 Lymphocytes # 2.5 Monocytes # 0.6 Eosinophils # 0.1 Basophils # 0.0 Nucleated Red 0.0 Blood Cells # Prothrombin 15.0 H Time Prothrombin 1.2 Time Ratio INR 1.17 International Normalized Rati o Activated 28.9 Partial Thrombo plast Time Sodium Level 146 H Potassium Level 3.2 L Chloride Level 111 H Carbon Dioxide 22 Level Anion Gap 13 Blood Urea 12 Nitrogen Creatinine 0.68 Est Glomerular > 60 Filtrat Rate mL/min Glucose Level 176 Calcium Level 9.1 Magnesium Level 3.4 H Mixed Venous 45.7 H Blood PO2 Mixed Venous 82.9 H Blood O2 Saturation Mixed Venous 13.1 Blood Total Hemoglobi n Mixed Venous 82.2 Blood Oxyhemogl obin Mixed Venous 0.4 Bld Carboxyhemo globin Mixed Venous 0.5 Blood Methemogl obin Test 05/08/18 14:59 05/08/18 16:07 05/08/18 17:04 05/08/18 18:09 Bedside Glucose 180 199 213 212 Test 05/08/18 19:04 05/08/18 19:59 05/08/18 21:02 05/08/18 21:04 Bedside Glucose 216 207 215 Sodium Level 146 H Potassium Level 3.6 Chloride Level 112 H Carbon Dioxide 25 Level Anion Gap 9 Blood Urea 14 Nitrogen Creatinine 0.76 Est Glomerular > 60 Filtrat Rate mL/min Glucose Level 216 Calcium Level 9.2 Phosphorus 1.6 #L Level Magnesium Level 2.8 H Test 05/08/18 21:15 05/08/18 22:04 05/08/18 23:00 05/08/18 23:12 Blood Gas Blood arterial Specimen Source Arterial Blood 05/08/2018 9:25:3 Date Drawn 1 PM Arterial Blood 7.376 pH (Temp corrected ) Arterial Blood 38.3 pCO2 (Temp correct) Arterial Blood 87.3 pO2 (Temp corrected ) Arterial Blood 21.9 L HCO3 Arterial Blood -2.9 Base Excess Arterial Blood 95.9 Oxygen Saturati on Jacky Test N/A Arterial Blood A-Line Gas Puncture Site Arterial 0.3 Blood Carboxyhe moglobin Arterial Blood 0.5 Methemoglobin Blood Gas A-a 81.6 H O2 Differential Oxyhemoglobin 95.1 Percent Blood Gas 37.0 Temperature Blood Gas 19 Actual Respiration Rat e Blood Gas VENT - CPAP Modality FiO2 30.0 Blood Gas High 5.0 PEEP Setting Blood Gas 10 Pressure Support Blood Gas Felicia Werner [facility] Notified Whom Blood Gas 05/08/2018 9:31:0 Notified Time 2 PM Bedside Glucose 174 162 Urine Color YELLOW Urine Clarity CLEAR Urine pH 5.0 Urine Specific 1.019 Foreman Urine Ketones NEGATIVE Urine Nitrite NEGATIVE Urine Bilirubin NEGATIVE Urine NEGATIVE Urobilinogen Urine Leukocyte TRACE A Esterase Urine 2 Microscopic RBC Urine 21 H Microscopic WBC Urine Mucus FEW A Urine 1+ H Hemoglobin Urine Glucose NEGATIVE Urine Total NEGATIVE Protein Test 05/08/18 23:17 05/08/18 23:59 05/09/18 00:59 05/09/18 02:05 Lactic Acid 2.3 *H Level Bedside Glucose 150 148 137 Test 05/09/18 03:02 05/09/18 04:00 05/09/18 04:05 05/09/18 04:30 Bedside Glucose 156 158 Prothrombin 13.6 Time Prothrombin 1.1 Time Ratio INR 1.03 International Normalized Rati o Activated 30.0 Partial Thrombo plast Time Sodium Level 149 H Potassium Level 5.1 Chloride Level 112 H Carbon Dioxide 26 Level Anion Gap 11 Blood Urea 13 Nitrogen Creatinine 0.78 Est Glomerular > 60 Filtrat Rate mL/min Glucose Level 155 Calcium Level 9.5 Magnesium Level 2.4 White Blood 10.7 Count Red Blood Count 3.64 L Hemoglobin 10.9 L Hematocrit 32.5 L Mean 89.3 Corpuscular Volume Mean 29.9 Corpuscular Hemoglobin Mean 33.5 Corpuscular Hemoglobin Conc ent Red Cell 14.8 H Distribution Width Platelet Count 195 # Mean Platelet 10.8 H Volume Immature 0.700 H Granulocytes % Neutrophils % 83.0 H Lymphocytes % 6.4 L Monocytes % 9.5 Eosinophils % 0.1 Basophils % 0.3 Nucleated Red 0.0 Blood Cells % Immature 0.070 H Granulocytes # Neutrophils # 8.9 H Lymphocytes # 0.7 L Monocytes # 1.0 H Eosinophils # 0.0 Basophils # 0.0 Nucleated Red 0.0 Blood Cells # Lactic Acid 1.7 Level Test 05/09/18 04:58 05/09/18 05:01 05/09/18 06:09 05/09/18 06:59 Bedside Glucose 146 169 159 Lab Scanned BLOOD TRANSFUSI Report ON Test 05/09/18 07:58 Bedside Glucose 161 Subjective 24 Hr Interval Summary Free Text/Dictation Patient was extubated last night and tolerated well. This am asking for ice chips and complaining of pain but denies any other complaints. Noted with fever overnight but had bear hugger on as well. [place] cultures sent. Exam/Review of Systems Vital Signs Vitals Vital Signs Date Temp Pulse Resp B/P (MAP) Pulse Ox O2 O2 Flow FiO2 Time Delivery Rate 05/09/18 102 22 147/70 96 07:45 (95) 05/09/18 99.1 07:00 05/09/18 6.0 44 00:58 05/07/18 Room Air 15:03 Intake and Output 05/08/18 05/08/18 05/09/18 1515:00 23:00 07:00 IntakeIntake Total 3737 ml 963 ml 1705.66 ml OutputOutput Total 3635 ml 1329 ml 468 ml BalanceBalance 102 ml -366 ml 1237.66 ml Exam General: Patient is laying in bed, mild distress secondary to pain Eyes: EOMI, pupils reactive to light Neck: Supple Respiratory: Clear to auscultation bilaterally. no wheezing or rhonchi Chest chest tube in place with sanguinous drainage. sternal dressing in place with no discharge or drainage Cardiovascular: S1, S2, mildly tachycardia, regular rhythm, no obvious murmurs Gastrointestinal: soft, non-tender to palpation, no distended bowel sounds heard. Neurological: Moves all extremities spontaneously Skin: No new skin lesions Medications Medications Current Medications Acetaminophen (Tylenol Tab) 650 mg Q6H PRN PO MILD PAIN(1-3)OR ELEVATED TEMP; Start 05/03/18 at 23:30 IV Flush (NS 3 ml) 3 ml PER PROTOCOL IV ; Start 05/04/18 at 01:00 Ondansetron HCl (Zofran Inj) 4 mg Q6H PRN IV NAUSEA AND/OR VOMITING Last administered on 05/09/18at 04:38; Admin Dose 4 MG; Start 05/04/18 at 01:00 Nitroglycerin (Nitroglycerin (Sl Tab) 0.4 Mg) 1 tab Q5M PRN SL CHEST PAIN; Start 05/04/18 at 01:00 Acetaminophen/ Hydrocodone Bitart (Hulett (5/325)) 1 tab Q6H PRN PO PAIN LEVEL 4-6 Last administered on 05/05/18at 19:52; Admin Dose 1 TAB; Start 05/04/18 at 01:00 Enoxaparin Sodium (Lovenox) 40 mg DAILY SC Last administered on 05/07/18at 08:18; Admin Dose 40 MG; Start 05/04/18 at 09:00 Albuterol/ Ipratropium (Duoneb) 3 ml Q2H RESP THERAPY PRN HHN SHORTNESS OF BREATH; Start 05/04/18 at 01:00 Miscellaneous Information 1 ea NOTE XX ; Start 05/04/18 at 01:00 Glucose (Glutose) 15 gm Q15M PRN PO DECREASED GLUCOSE; Start 05/04/18 at 01:00 Glucose (Glutose) 22.5 gm Q15M PRN PO DECREASED GLUCOSE; Start 05/04/18 at 01:00 Dextrose (D50w Syringe) 25 ml Q15M PRN IV DECREASED GLUCOSE; Start 05/04/18 at 01:00 Dextrose (D50w Syringe) 50 ml Q15M PRN IV DECREASED GLUCOSE; Start 05/04/18 at 01:00 Glucagon (Glucagen) 1 mg Q15M PRN IM DECREASED GLUCOSE; Start 05/04/18 at 01:00 Glucose (Glutose) 15 gm Q15M PRN BUCCAL DECREASED GLUCOSE; Start 05/04/18 at 01:00 Diagnostic Test (Pha) (Accu-Chek) 1 ea 02 XX Last administered on 05/09/18at 01:28; Admin Dose 1 EA; Start 05/05/18 at 02:00 Metoprolol Tartrate (Lopressor) 25 mg BID PO Last administered on 05/07/18at 20:49; Admin Dose 25 MG; Start 05/04/18 at 21:00 Nitroglycerin/ Dextrose 250 ml @ 1.5 mls/hr PER PROTOCOL IV Last administered on 05/08/18at 16:00; Admin Dose 60 MLS/HR; Start 05/08/18 at 14:00 Dopamine HCl/ Dextrose 250 ml @ 5.775 mls/ hr PER PROTOCOL IV ; Start 05/08/18 at 14:00 Morphine Sulfate (morphine) 10 mg Q4H PRN IV SEVERE PAIN LEVEL 7-10; Start 05/08/18 at 14:00 Potassium Chloride 40 meq/ Calcium Chloride 1 gm/Dextrose/ Sodium Chloride 1,030 ml @ 60 mls/hr [id number] IV Last administered on 05/08/18at 17:50; Admin Dose 60 MLS/HR; Start 05/08/18 at 16:00 Hydromorphone HCl (Dilaudid) 0.2 mg Q15M PRN IV PAIN LEVEL 1-5; Start 05/08/18 at 14:30 Hydromorphone HCl (Dilaudid) 0.4 mg Q15M PRN IV PAIN LEVEL 6-10 Last administered on 05/08/18at 20:20; Admin Dose 0.4 MG; Start 05/08/18 at 14:30 Hydromorphone HCl (Dilaudid) 0.2 mg Q1H PRN IV PAIN LEVEL 1-5 Last administered on 05/09/18at 08:28; Admin Dose 0.2 MG; Start 05/08/18 at 14:30 Hydromorphone HCl (Dilaudid) 0.4 mg Q1H PRN IV PAIN LEVEL 6-10 Last ad ministered on 05/09/18at 04:39; Admin Dose 0.4 MG; Start 05/08/18 at 14:30 Oxycodone/ Acetaminophen (Percocet (5/ 325)) 1 tab Q3H PRN PO PAIN LEVEL 1-5; Start 05/08/18 at 14:30 Oxycodone/ Acetaminophen (Percocet (5/ 325)) 2 tab Q3H PRN PO PAIN LEVEL 6-10; Start 05/08/18 at 14:30 Ondansetron HCl (Zofran Inj) 2 mg ONCE PRN IV NAUSEA AND/OR VOMITING; Start 05/08/18 at 14:30 Ondansetron HCl (Zofran Inj) 4 mg Q6H PRN IV NAUSEA AND/OR VOMITING; Start 05/08/18 at 14:30 Famotidine (Pepcid Iv) 20 mg BID@08,20 IV Last administered on 05/09/18at 08:22; Admin Dose 20 MG; Start 05/08/18 at 20:00 Aspirin (Aspirin) 325 mg DAILY PO ; Start 05/09/18 at 09:00 Acetaminophen (Tylenol Liquid) 650 mg Q3H PRN NGT ELEVATED TEMPERATURE; Start 05/08/18 at 14:30 Potassium Chloride 50 ml @ 50 mls/hr SEE DIRECTION PRN IVPB PENDING LAB VALUE Last administered on 05/09/18at 01:18; Admin Dose 50 MLS/HR; Start 05/08/18 at 14:30 Magnesium Sulfate/ Dextrose 100 ml @ 100 mls/hr PRN PRN IVPB PENDING LAB VALUE; Start 05/08/18 at 14:30 Nitroglycerin/ Dextrose 250 ml @ 1.5 mls/hr PER PROTOCOL IV Last administered on 05/09/18at 05:49; Admin Dose 21 MLS/HR; Start 05/08/18 at 14:30 Diagnostic Test (Pha) (Accu-Chek) 1 ea Q1H XX Last administered on 05/09/18at 08:02; Admin Dose 1 EA; Start 05/08/18 at 16:00 Insulin Human Regular 100 unit/ Sodium Chloride 100 ml @ 0 mls/hr PER PROTOCOL IV Last administered on 05/09/18at 07:29; Admin Dose 7 MLS/HR; Start 05/08/18 at 16:00 Miscellaneous Information (* Miscellaneous Pharmacy Order) Treatment of Hypoglycemia: 1.BG 51... Per protocol XX ; Start 05/08/18 at 16:00 Dextrose (D50w Syringe) 25 ml Q15M PRN IV DECREASED GLUCOSE; Start 05/08/18 at 16:00 Dextrose (D50w Syringe) 50 ml Q15M PRN IV DECREASED GLUCOSE; Start 05/08/18 at 16:00 Atorvastatin Calcium (Lipitor) 40 mg HS PO ; Start 05/08/18 at 21:00 Albumin Human 250 ml @ 500 mls/hr PRN PRN IV NOTE; Start 05/08/18 at 19:00 Acetaminophen (Tylenol Supp) 650 mg Q4H PRN LA MILD PAIN(1-3) OR TEMP>38C Last administered on 05/08/18at 23:25; Admin Dose 650 MG; Start 05/08/18 at 22:30 Piperacillin Sod/ Tazobactam Sod 100 ml @ 200 mls/hr Q6 IVPB Last administered on 05/09/18at 05:51; Admin Dose 200 MLS/HR; Start 05/09/18 at 01:00 Vancomycin HCl (Vanco Iv Per Pharmacy) VANCOMYCIN PER PHARMACY PER PROTOCOL XX ; Start 05/09/18 at 01:00 NEIL CEDEÑO MD May 09, 2018 08:35
[2018-05-09] MEDS: METOPROLOL 25 MG TAB PO SCH ×3 (08:45→21:14)
[2018-05-09] MEDS ORDERED: ASPIRIN 325 MG TAB PO SCH (09:00)
[2018-05-09] MEDS: ENOXAPARIN 40 MG/0.4 ML SYG SC SCH (09:54)
[2018-05-09] MEDS: HYDROCODONE/APAP (5/325) TAB PO PRN (10:30)
[2018-05-09] MEDS: POTASSIUM CHLORIDE 40 MEQ, CALCIUM CHLORIDE 10% 1 GM in DEXTROSE 5%-0.225% NACL 1,000 ML IV SCH (12:28)
--- NOTE | 2018-05-09 13:45 | CONS ---
Date/Time of Note Date/Time of Note DATE: 05/09/18 TIME: 13:43 Assessment/Plan Assessment/Plan Assessment/Plan Severe obstructive coronary artery disease, s/p CABG 05/08/18 MILLER-LAD, SVG-OM, SVG-PDA Preserved Ejection Fraction Diabetes Hypertension -pt s/p CABG -cont ASA, Statin -Beta-vanna was started, increased to every 8 hours -Encourage incentive spirometry Result Diagram: 05/09/18 0430 05/09/18 0400 Results 24hrs Laboratory Tests Test 05/08/18 14:07 05/08/18 14:37 05/08/18 14:47 05/08/18 14:59 Blood Gas Blood arterial BLMV Specimen Source Arterial Blood 05/08/2018 2:30:4 05/08/2018 2:37:5 Date Drawn 7 PM 9 PM Arterial Blood 7.374 pH (Temp corrected ) Arterial Blood 41.1 pCO2 (Temp correct) Arterial Blood 92.7 pO2 (Temp corrected ) Arterial Blood 23.4 HCO3 Arterial Blood -1.7 Base Excess Arterial Blood 96.7 Oxygen Saturati on Jacky Test N/A N/A Arterial Blood A-Line OTHER Gas Puncture Site Arterial 0.3 Blood Carboxyhe moglobin Arterial Blood 0.4 Methemoglobin Blood Gas A-a 289.9 H O2 Differential Oxyhemoglobin 96.0 Percent Blood Gas 37.0 37.0 Temperature Blood Gas 14.0 14.0 Respiration Rate Blood Gas 14 14 Actual Respiration Rat e Blood Gas VENT - AC VENT - AC Modality FiO2 60.0 60.0 Blood Gas Tidal 500.0 500.0 Volume Blood Gas Low 5.0 5.0 PEEP Setting Blood Gas TM TM Notified Whom Blood Gas 05/08/2018 2:45:5 05/08/2018 2:52:0 Notified Time 5 PM 2 PM White Blood 10.1 # Count Red Blood Count 4.05 L Hemoglobin 12.0 Hematocrit 35.5 L Mean 87.7 Corpuscular Volume Mean 29.6 Corpuscular Hemoglobin Mean 33.8 Corpuscular Hemoglobin Conc ent Red Cell 13.8 Distribution Width Platelet Count 147 # Mean Platelet 10.5 H Volume Immature 1.300 H Granulocytes % Neutrophils % 66.5 Lymphocytes % 25.3 Monocytes % 5.9 Eosinophils % 0.8 Basophils % 0.2 Nucleated Red 0.0 Blood Cells % Immature 0.130 H Granulocytes # Neutrophils # 6.7 Lymphocytes # 2.5 Monocytes # 0.6 Eosinophils # 0.1 Basophils # 0.0 Nucleated Red 0.0 Blood Cells # Prothrombin 15.0 H Time Prothrombin 1.2 Time Ratio INR 1.17 International Normalized Rati o Activated 28.9 Partial Thrombo plast Time Sodium Level 146 H Potassium Level 3.2 L Chloride Level 111 H Carbon Dioxide 22 Level Anion Gap 13 Blood Urea 12 Nitrogen Creatinine 0.68 Est Glomerular > 60 Filtrat Rate mL/min Glucose Level 176 Calcium Level 9.1 Magnesium Level 3.4 H Mixed Venous 45.7 H Blood PO2 Mixed Venous 82.9 H Blood O2 Saturation Mixed Venous 13.1 Blood Total Hemoglobi n Mixed Venous 82.2 Blood Oxyhemogl obin Mixed Venous 0.4 Bld Carboxyhemo globin Mixed Venous 0.5 Blood Methemogl obin Bedside Glucose 180 Test 05/08/18 16:07 05/08/18 17:04 05/08/18 18:09 05/08/18 19:04 Bedside Glucose 199 213 212 216 Test 05/08/18 19:59 05/08/18 21:02 05/08/18 21:04 05/08/18 21:15 Bedside Glucose 207 215 Sodium Level 146 H Potassium Level 3.6 Chloride Level 112 H Carbon Dioxide 25 Level Anion Gap 9 Blood Urea 14 Nitrogen Creatinine 0.76 Est Glomerular > 60 Filtrat Rate mL/min Glucose Level 216 Calcium Level 9.2 Phosphorus 1.6 #L Level Magnesium Level 2.8 H Blood Gas Blood arterial Specimen Source Arterial Blood 05/08/2018 9:25:3 Date Drawn 1 PM Arterial Blood 7.376 pH (Temp corrected ) Arterial Blood 38.3 pCO2 (Temp correct) Arterial Blood 87.3 pO2 (Temp corrected ) Arterial Blood 21.9 L HCO3 Arterial Blood -2.9 Base Excess Arterial Blood 95.9 Oxygen Saturati on Jacky Test N/A Arterial Blood A-Line Gas Puncture Site Arterial 0.3 Blood Carboxyhe moglobin Arterial Blood 0.5 Methemoglobin Blood Gas A-a 81.6 H O2 Differential Oxyhemoglobin 95.1 Percent Blood Gas 37.0 Temperature Blood Gas 19 Actual Respiration Rat e Blood Gas VENT - CPAP Modality FiO2 30.0 Blood Gas High 5.0 PEEP Setting Blood Gas 10 Pressure Support Blood Gas Felicia Werner RCP Notified Whom Blood Gas 05/08/2018 9:31:0 Notified Time 2 PM Test 05/08/18 22:04 05/08/18 23:00 05/08/18 23:12 05/08/18 23:17 Bedside Glucose 174 162 Urine Color YELLOW Urine Clarity CLEAR Urine pH 5.0 Urine Specific 1.019 [place] Urine Ketones NEGATIVE Urine Nitrite NEGATIVE Urine Bilirubin NEGATIVE Urine NEGATIVE Urobilinogen Urine Leukocyte TRACE A Esterase Urine 2 Microscopic RBC Urine 21 H Microscopic WBC Urine Mucus FEW A Urine 1+ H Hemoglobin Urine Glucose NEGATIVE Urine Total NEGATIVE Protein Lactic Acid 2.3 *H Level Test 05/08/18 23:59 05/09/18 00:59 05/09/18 02:05 05/09/18 03:02 Bedside Glucose 150 148 137 156 Test 05/09/18 04:00 05/09/18 04:05 05/09/18 04:30 05/09/18 04:58 Prothrombin 13.6 Time Prothrombin 1.1 Time Ratio INR 1.03 International Normalized Rati o Activated 30.0 Partial Thrombo plast Time Sodium Level 149 H Potassium Level 5.1 Chloride Level 112 H Carbon Dioxide 26 Level Anion Gap 11 Blood Urea 13 Nitrogen Creatinine 0.78 Est Glomerular > 60 Filtrat Rate mL/min Glucose Level 155 Calcium Level 9.5 Magnesium Level 2.4 Bedside Glucose 158 146 White Blood 10.7 Count Red Blood Count 3.64 L Hemoglobin 10.9 L Hematocrit 32.5 L Mean 89.3 Corpuscular Volume Mean 29.9 Corpuscular Hemoglobin Mean 33.5 Corpuscular Hemoglobin Conc ent Red Cell 14.8 H Distribution Width Platelet Count 195 # Mean Platelet 10.8 H Volume Immature 0.700 H Granulocytes % Neutrophils % 83.0 H Lymphocytes % 6.4 L Monocytes % 9.5 Eosinophils % 0.1 Basophils % 0.3 Nucleated Red 0.0 Blood Cells % Immature 0.070 H Granulocytes # Neutrophils # 8.9 H Lymphocytes # 0.7 L Monocytes # 1.0 H Eosinophils # 0.0 Basophils # 0.0 Nucleated Red 0.0 Blood Cells # Lactic Acid 1.7 Level Test 05/09/18 05:01 05/09/18 06:09 05/09/18 06:59 05/09/18 07:58 Lab Scanned BLOOD TRANSFUSI Report ON Bedside Glucose 169 159 161 Test 05/09/18 09:25 05/09/18 10:01 05/09/18 11:05 05/09/18 12:07 Bedside Glucose 161 168 197 211 Test 05/09/18 13:23 Bedside Glucose 225 H Consultation Date/Type/Reason Admit Date/Time May 03, 2018 at 23:07 Initial Consult Date Type of Consult cv 24 HR Interval Summary Free Text/Dictation Doing better, denies shortness of breath, off IV pressors Exam/Review of Systems Vital Signs Vitals Vital Signs Date Temp Pulse Resp B/P (MAP) Pulse Ox O2 O2 Flow FiO2 Time Delivery Rate 05/09/18 94 24 144/73 98 13:15 (96) 05/09/18 Nasal 4.0 13:00 Cannula 05/09/18 99.1 12:00 05/09/18 44 00:58 Intake and Output 05/08/18 05/08/18 05/09/18 1515:00 23:00 07:00 IntakeIntake Total 3737 ml 963 ml 1705.66 ml OutputOutput Total 3635 ml 1329 ml 488 ml BalanceBalance 102 ml -366 ml 1217.66 ml Exam No apparent distress, son at bedside Constitutional: alert, oriented Head: normocephalic Respiratory: other (Coarse breath sounds bilaterally, no wheezing) Cardiovascular: regular rate and rhythm, other (S1-S2 heard) Gastrointestinal: soft, non-tender, bowel sounds Extremities: edema Medications Medications Current Medications Acetaminophen (Tylenol Tab) 650 mg Q6H PRN PO MILD PAIN(1-3)OR ELEVATED TEMP; Start 05/03/18 at 23:30 IV Flush (NS 3 ml) 3 ml PER PROTOCOL IV ; Start 05/04/18 at 01:00 Ondansetron HCl (Zofran Inj) 4 mg Q6H PRN IV NAUSEA AND/OR VOMITING Last administered on 05/09/18at 04:38; Admin Dose 4 MG; Start 05/04/18 at 01:00 Nitroglycerin (Nitroglycerin (Sl Tab) 0.4 Mg) 1 tab Q5M PRN SL CHEST PAIN; Start 05/04/18 at 01:00 Acetaminophen/ Hydrocodone Bitart ([place] (5/325)) 1 tab Q6H PRN PO PAIN LEVEL 4-6 Last administered on 05/09/18at 10:30; Admin Dose 1 TAB; Start 05/04/18 at 01:00 Enoxaparin Sodium (Lovenox) 40 mg DAILY SC Last administered on 05/09/18at 09:54; Admin Dose 40 MG; Start 05/04/18 at 09:00 Albuterol/ Ipratropium (Duoneb) 3 ml Q2H RESP THERAPY PRN HHN SHORTNESS OF BREATH; Start 05/04/18 at 01:00 Miscellaneous Information 1 ea NOTE XX ; Start 05/04/18 at 01:00 Glucose (Glutose) 15 gm Q15M PRN PO DECREASED GLUCOSE; Start 05/04/18 at 01:00 Glucose (Glutose) 22.5 gm Q15M PRN PO DECREASED GLUCOSE; Start 05/04/18 at 01:00 Dextrose (D50w Syringe) 25 ml Q15M PRN IV DECREASED GLUCOSE; Start 05/04/18 at 01:00 Dextrose (D50w Syringe) 50 ml Q15M PRN IV DECREASED GLUCOSE; Start 05/04/18 at 01:00 Glucagon (Glucagen) 1 mg Q15M PRN IM DECREASED GLUCOSE; Start 05/04/18 at 01:00 Glucose (Glutose) 15 gm Q15M PRN BUCCAL DECREASED GLUCOSE; Start 05/04/18 at 01:00 Diagnostic Test (Pha) (Accu-Chek) 1 ea 02 XX Last administered on 05/09/18at 01:28; Admin Dose 1 EA; Start 05/05/18 at 02:00 Metoprolol Tartrate (Lopressor) 25 mg BID PO Last administered on 05/09/18at 08:45; Admin Dose 25 MG; Start 05/04/18 at 21:00 Nitroglycerin/ Dextrose 250 ml @ 1.5 mls/hr PER PROTOCOL IV Last administered on 05/08/18at 16:00; Admin Dose 60 MLS/HR; Start 05/08/18 at 14:00 Dopamine HCl/ Dextrose 250 ml @ 5.775 mls/ hr PER PROTOCOL IV ; Start 05/08/18 at 14:00 Morphine Sulfate (morphine) 10 mg Q4H PRN IV SEVERE PAIN LEVEL 7-10; Start 05/08/18 at 14:00 Potassium Chloride 40 meq/ Calcium Chloride 1 gm/Dextrose/ Sodium Chloride 1,030 ml @ 60 mls/hr [id number] IV Last administered on 05/09/18at 12:28; Admin Dose 60 MLS/HR; Start 05/08/18 at 16:00 Hydromorphone HCl (Dilaudid) 0.2 mg Q15M PRN IV PAIN LEVEL 1-5; Start 05/08/18 at 14:30 Hydromorphone HCl (Dilaudid) 0.4 mg Q15M PRN IV PAIN LEVEL 6-10 Last administered on 05/08/18at 20:20; Admin Dose 0.4 MG; Start 05/08/18 at 14:30 Hydromorphone HCl (Dilaudid) 0.2 mg Q1H PRN IV PAIN LEVEL 1-5 Last administered on 05/09/18at 08:28; Admin Dose 0.2 MG; Start 05/08/18 at 14:30 Hydromorphone HCl (Dilaudid) 0.4 mg Q1H PRN IV PAIN LEVEL 6-10 Last administered on 05/09/18at 11:45; Admin Dose 0.4 MG; Start 05/08/18 at 14:30 Oxycodone/ Acetaminophen (Percocet (5/ 325)) 1 tab Q3H PRN PO PAIN LEVEL 1-5; Start 05/08/18 at 14:30 Oxycodone/ Acetaminophen (Percocet (5/ 325)) 2 tab Q3H PRN PO PAIN LEVEL 6-10; Start 05/08/18 at 14:30 Ondansetron HCl (Zofran Inj) 2 mg ONCE PRN IV NAUSEA AND/OR VOMITING Last administered on 05/09/18at 09:51; Admin Dose 2 MG; Start 05/08/18 at 14:30 Ondansetron HCl (Zofran Inj) 4 mg Q6H PRN IV NAUSEA AND/OR VOMITING; Start 05/08/18 at 14:30 Famotidine (Pepcid Iv) 20 mg BID@08,20 IV Last administered on 05/09/18at 08:22; Admin Dose 20 MG; Start 05/08/18 at 20:00 Aspirin (Aspirin) 325 mg DAILY PO Last administered on 05/09/18at 08:44; Admin Dose 325 MG; Start 05/09/18 at 09:00 Acetaminophen (Tylenol Liquid) 650 mg Q3H PRN NGT ELEVATED TEMPERATURE; Start 05/08/18 at 14:30 Potassium Chloride 50 ml @ 50 mls/hr SEE DIRECTION PRN IVPB PENDING LAB VALUE Last administered on 05/09/18at 01:18; Admin Dose 50 MLS/HR; Start 05/08/18 at 14:30 Magnesium Sulfate/ Dextrose 100 ml @ 100 mls/hr PRN PRN IVPB PENDING LAB VALUE; Start 05/08/18 at 14:30 Nitroglycerin/ Dextrose 250 ml @ 1.5 mls/hr PER PROTOCOL IV Last administered on 05/09/18at 05:49; Admin Dose 21 MLS/HR; Start 05/08/18 at 14:30 Diagnostic Test (Pha) (Accu-Chek) 1 ea Q1H XX Last administered on 05/09/18at 13: 24; Admin Dose 1 EA; Start 05/08/18 at 16:00 Insulin Human Regular 100 unit/ Sodium Chloride 100 ml @ 0 mls/hr PER PROTOCOL IV Last administered on 05/09/18at 07:29; Admin Dose 7 MLS/HR; Start 05/08/18 at 16:00 Miscellaneous Information (* Miscellaneous Pharmacy Order) Treatment of Hypoglycemia: 1.BG 51... Per protocol XX ; Start 05/08/18 at 16:00 Dextrose (D50w Syringe) 25 ml Q15M PRN IV DECREASED GLUCOSE; Start 05/08/18 at 16:00 Dextrose (D50w Syringe) 50 ml Q15M PRN IV DECREASED GLUCOSE; Start 05/08/18 at 16:00 Atorvastatin Calcium (Lipitor) 40 mg HS PO ; Start 05/08/18 at 21:00 Albumin Human 250 ml @ 500 mls/hr PRN PRN IV NOTE; Start 05/08/18 at 19:00 Acetaminophen (Tylenol Supp) 650 mg Q4H PRN [place] MILD PAIN(1-3) OR TEMP>38C Last administered on 05/08/18at 23:25; Admin Dose 650 MG; Start 05/08/18 at 22:30 Piperacillin Sod/ Tazobactam Sod 100 ml @ 200 mls/hr Q6 IVPB Last administered on 05/09/18at 12:28; Admin Dose 200 MLS/HR; Start 05/09/18 at 01:00 Vancomycin HCl (Vanco Iv Per Pharmacy) VANCOMYCIN PER PHARMACY PER PROTOCOL XX ; Start 05/09/18 at 01:00 Vancomycin/Sodium Chloride 250 ml @ 125 mls/hr Q12H IVPB ; Start 05/09/18 at 16:00 Miscellaneous Information (*Rx Drug Level Order Reminder*) VANCO TROUGH 05/10 @ 1,500 ONCE ONCE XX ; Start 05/10/18 at 15:00; Stop 05/10/18 at 15:01 Vinny Simons DO May 09, 2018 13:45
--- NOTE | 2018-05-09 14:03 | PN ---
Date/Time of Note Date/Time of Note DATE: 05/09/18 TIME: 14:01 Assessment/Plan Lines/Catheters IV Catheter Type (from Nrsg): Viola Carlene Freed in Place (from Nrsg): Yes Assessment/Plan Assessment/Plan SP CABG BP under better control Low UO will continue CT sxn Lasix Pulm toilet DC SG line UP to chair Subjective 24 Hr Interval Summary Constitutional: improved Pain Control: mild Exam/Review of Systems Vital Signs Vitals Vital Signs Date Temp Pulse Resp B/P (MAP) Pulse Ox O2 O2 Flow FiO2 Time Delivery Rate 05/09/18 94 24 144/73 98 13:15 (96) 05/09/18 Nasal 4.0 13:00 Cannula 05/09/18 99.1 12:00 05/09/18 44 00:58 Intake and Output 05/08/18 05/08/18 05/09/18 1515:00 23:00 07:00 IntakeIntake Total 3737 ml 963 ml 1705.66 ml OutputOutput Total 3635 ml 1329 ml 488 ml BalanceBalance 102 ml -366 ml 1217.66 ml Exam Eyes: nl conjunctiva, EOMI, nl lids, nl sclera ENMT: nl external ears & nose, nl lips & teeth, nl nasal mucosa & septum, mucosa pink and moist Neck: supple, non-tender Respiratory: clear to auscultation, normal air movement Cardiovascular: regular rate and rhythm, nl pulses Gastrointestinal: soft, nl liver, spleen, non-tender Musculoskeletal: nl extremities to inspection, nl gait and stance Results Result Diagram: 05/09/18 0430 05/09/18 0400 MANUEL TORRES MD May 09, 2018 14:03
[2018-05-09] MEDS ORDERED: FUROSEMIDE 20 MG INJ IV ONE (14:30)
[2018-05-09] MEDS ORDERED: LORAZEPAM 2 MG INJ IV ONE (15:00)
[2018-05-09] MEDS ORDERED: traZODone 50 MG TAB PO PRN (15:00)
[2018-05-09] MEDS: VANCOMYCIN 750 MG (PMX) 250 ML IVPB SCH (16:29)
[2018-05-09] MEDS ORDERED: LORAZEPAM 4 MG/ML VIAL IV ONE (16:30)
[2018-05-09] MEDS: ATORVASTATIN 40 MG TAB PO SCH (21:14)
[2018-05-10] VITALS (22 sets, daily range): BP systolic 104–173; BP diastolic 21–112; PULSE 86–99; RESP 16–33
[2018-05-10] MEDS: HYDROmorphONE 0.5 MG/0.5 ML SYG IV PRN ×3 (00:35→20:00)
[2018-05-10] MEDS: ACCU-CHEK XX SCH ×16 (00:35→14:15)
[2018-05-10] MEDS: POTASSIUM CHLORIDE 40 MEQ, CALCIUM CHLORIDE 10% 1 GM in DEXTROSE 5%-0.225% NACL 1,000 ML IV SCH ×2 (02:37→13:28)
[2018-05-10] MEDS: VANCOMYCIN 750 MG (PMX) 250 ML IVPB SCH ×2 (04:14→17:02)
[2018-05-10] MEDS: PIPER-TAZO 3.375 GM IV (PMX) 100 ML IVPB SCH ×3 (05:55→18:57)
[2018-05-10] MEDS: METOPROLOL 25 MG TAB PO SCH ×2 (05:56→14:16)
[2018-05-10] MEDS: FAMOTIDINE 20 MG INJ IV SCH ×2 (08:22→21:08)
--- NOTE | 2018-05-10 08:48 | PN ---
Date/Time of Note Date/Time of Note DATE: 05/10/18 TIME: 08:48 Assessment/Plan VTE Prophylaxis Risk score (from Nsg)>0 risk: 15 SCD applied (from Nsg): Yes Pharmacological prophylaxis: heparin Lines/Catheters IV Catheter Type (from Nrsg): Cordis Urinary Cath still in place: Yes Reason Cath still needed: terminal illness/intractable pain Assessment/Plan Assessment/Plan 1. CAD s/p CABG with triple vessel disease - CT surgery on board and appreciate consultation. Plans for removal of chest tubes this am and encourage OOB - Patient tolerated CABG without any acute complications. - Cardiology on board and appreciate recommendations. 2. Hypertension - Management per CT surgery/Cardiology 3. Dyslipidemia - Will continue on statin. 4. Right sided infiltrate - Continue on IV antibiotics and monitor for improvement - [place] cultures negative - WBC elevated - Lactic acid normalized 5. Diabetes Mellitus - will transition to Lantus and stop insulin drip - A1c noted - hold home metformin 6. Disposition - Will transition to Lantus and stop Insulin drip - Continue current treatment per CT surgery recommendations Result Diagram: 05/10/18 0428 05/10/18 0428 Results 24hrs Laboratory Tests Test 05/09/18 09:25 05/09/18 10:01 05/09/18 11:05 05/09/18 12:07 Bedside Glucose 161 168 197 211 Test 05/09/18 13:23 05/09/18 14:00 05/09/18 14:07 05/09/18 15:10 Bedside Glucose 225 H 203 168 Hematocrit 30.5 L Test 05/09/18 16:10 05/09/18 16:55 05/09/18 18:08 05/09/18 18:50 Bedside Glucose 159 155 129 113 Test 05/09/18 20:06 05/09/18 21:05 05/09/18 22:10 05/09/18 23:04 Bedside Glucose 136 140 144 134 Test 05/10/18 00:01 05/10/18 02:08 05/10/18 04:08 05/10/18 04:28 Bedside Glucose 136 142 122 White Blood Count 12.6 H Red Blood Count 3.23 L Hemoglobin 9.7 L Hematocrit 29.5 L Mean Corpuscular Volume 91.3 Mean Corpuscular 30.0 Hemoglobin Mean Corpuscular 32.9 Hemoglobin Concent Red Cell Distribution 15.5 H Width Platelet Count 179 Mean Platelet Volume 11.0 H Immature Granulocytes % 0.600 H Neutrophils % 78.2 H Lymphocytes % 12.2 L Monocytes % 8.7 Eosinophils % 0.1 Basophils % 0.2 Nucleated Red Blood 0.0 Cells % Immature Granulocytes # 0.070 H Neutrophils # 9.9 H Lymphocytes # 1.5 Monocytes # 1.1 H Eosinophils # 0.0 Basophils # 0.0 Nucleated Red Blood 0.0 Cells # Sodium Level 142 Potassium Level 4.3 Chloride Level 108 Carbon Dioxide Level 27 Anion Gap 7 Blood Urea Nitrogen 17 Creatinine 0.86 Glucose Level 129 Calcium Level 9.6 Phosphorus Level 5.4 #H Magnesium Level 2.2 Albumin 4.0 Test 05/10/18 05:58 05/10/18 08:06 Bedside Glucose 110 143 Subjective 24 Hr Interval Summary Free Text/Dictation Patient resting comfortably and remains stable. plans for d/c chest tube and wired per CT surgery. Exam/Review of Systems Vital Signs Vitals Vital Signs Date Temp Pulse Resp B/P (MAP) Pulse Ox O2 O2 Flow FiO2 Time Delivery Rate 05/10/18 99.1 90 18 147/72 99 Nasal 08:00 (97) Cannula 05/10/18 4.0 08:00 05/09/18 44 00:58 Intake and Output 05/09/18 05/09/18 05/10/18 1515:00 23:00 07:00 IntakeIntake Total 934.15 ml 724.0 ml 666 ml OutputOutput Total 299 ml 964 ml 331 ml BalanceBalance 635.15 ml -240.0 ml 335 ml Exam General: Patient is laying in bed in no acute distress. resting comfortably Neck: Supple Respiratory: Clear to auscultation bilaterally. no wheezing or rhonchi Chest: [address] with sanguinous drainage. sternal dressing in place with no discharge or drainage Cardiovascular: S1, S2, regular rate and rhythm, no obvious murmurs Gastrointestinal: soft, non-tender to palpation, no distended bowel sounds heard. Neurological: Moves all extremities spontaneously Skin: No new skin lesions Medications Medications Current Medications Acetaminophen (Tylenol Tab) 650 mg Q6H PRN PO MILD PAIN(1-3)OR ELEVATED TEMP; Start 05/03/18 at 23:30 IV Flush (NS 3 ml) 3 ml PER PROTOCOL IV ; Start 05/04/18 at 01:00 Ondansetron HCl (Zofran Inj) 4 mg Q6H PRN IV NAUSEA AND/OR VOMITING Last administered on 05/09/18at 15:48; Admin Dose 4 MG; Start 05/04/18 at 01:00 Nitroglycerin (Nitroglycerin (Sl Tab) 0.4 Mg) 1 tab Q5M PRN SL CHEST PAIN; Start 05/04/18 at 01:00 Acetaminophen/ Hydrocodone Bitart ([place] (5/325)) 1 tab Q6H PRN PO PAIN LEVEL 4-6 Last administered on 05/09/18at 10:30; Admin Dose 1 TAB; Start 05/04/18 at 01:00 Enoxaparin Sodium (Lovenox) 40 mg DAILY SC Last administered on 05/09/18at 09:54; Admin Dose 40 MG; Start 05/04/18 at 09:00 Albuterol/ Ipratropium (Duoneb) 3 ml Q2H RESP THERAPY PRN HHN SHORTNESS OF BREATH; Start 05/04/18 at 01:00 Miscellaneous Information 1 ea NOTE XX ; Start 05/04/18 at 01:00 Glucose (Glutose) 15 gm Q15M PRN PO DECREASED GLUCOSE; Start 05/04/18 at 01:00 Glucose (Glutose) 22.5 gm Q15M PRN PO DECREASED GLUCOSE; Start 05/04/18 at 01:00 Dextrose (D50w Syringe) 25 ml Q15M PRN IV DECREASED GLUCOSE; Start 05/04/18 at 01:00 Dextrose (D50w Syringe) 50 ml Q15M PRN IV DECREASED GLUCOSE; Start 05/04/18 at 01:00 Glucagon (Glucagen) 1 mg Q15M PRN IM DECREASED GLUCOSE; Start 05/04/18 at 01:00 Glucose (Glutose) 15 gm Q15M PRN BUCCAL DECREASED GLUCOSE; Start 05/04/18 at 01:00 Diagnostic Test (Pha) (Accu-Chek) 1 ea 02 XX Last administered on 05/10/18at 02:33; Admin Dose 1 EA; Start 05/05/18 at 02:00 Nitroglycerin/ Dextrose 250 ml @ 1.5 mls/hr PER PROTOCOL IV Last administered on 05/08/18at 16:00; Admin Dose 60 MLS/HR; Start 05/08/18 at 14:00 Dopamine HCl/ Dextrose 250 ml @ 5.775 mls/ hr PER PROTOCOL IV ; Start 05/08/18 at 14:00 Morphine Sulfate (morphine) 10 mg Q4H PRN IV SEVERE PAIN LEVEL 7-10; Start 05/08/18 at 14:00 Potassium Chloride 40 meq/ Calcium Chloride 1 gm/Dextrose/ Sodium Chloride 1,030 ml @ 60 mls/hr [id number] IV Last administered on 05/10/18at 02:37; Admin Dose 60 MLS/HR; Start 05/08/18 at 16:00 Hydromorphone HCl (Dilaudid) 0.2 mg Q15M PRN IV PAIN LEVEL 1-5; Start 05/08/18 at 14:30 Hydromorphone HCl (Dilaudid) 0.4 mg Q15M PRN IV PAIN LEVEL 6-10 Last administered on 05/10/18at 05:55; Admin Dose 0.4 MG; Start 05/08/18 at 14:30 Hydromorphone HCl (Dilaudid) 0.2 mg Q1H PRN IV PAIN LEVEL 1-5 Last administered on 05/09/18at 08:28; Admin Dose 0.2 MG; Start 05/08/18 at 14:30 Hydromorphone HCl (Dilaudid) 0.4 mg Q1H PRN IV PAIN LEVEL 6-10 Last administered on 05/09/18at 18:45; Admin Dose 0.4 MG; Start 05/08/18 at 14:30 Oxycodone/ Acetaminophen (Percocet (5/ 325)) 1 tab Q3H PRN PO PAIN LEVEL 1-5; Start 05/08/18 at 14:30 Oxycodone/ Acetaminophen (Percocet (5/ 325)) 2 tab Q3H PRN PO PAIN LEVEL 6-10; Start 05/08/18 at 14:30 Ondansetron HCl (Zofran Inj) 2 mg ONCE PRN IV NAUSEA AND/OR VOMITING Last administered on 05/09/18at 09:51; Admin Dose 2 MG; Start 05/08/18 at 14:30 Ondansetron HCl (Zofran Inj) 4 mg Q6H PRN IV NAUSEA AND/OR VOMITING; Start 05/08/18 at 14:30 Famotidine (Pepcid Iv) 20 mg BID@08,20 IV Last administered on 05/10/18at 08:22; Admin Dose 20 MG; Start 05/08/18 at 20:00 Acetaminophen (Tylenol Liquid) 650 mg Q3H PRN NGT ELEVATED TEMPERATURE; Start 05/08/18 at 14:30 Potassium Chloride 50 ml @ 50 mls/hr SEE DIRECTION PRN IVPB PENDING LAB VALUE Last administered on 05/09/18at 01:18; Admin Dose 50 MLS/HR; Start 05/08/18 at 14:30 Magnesium Sulfate/ Dextrose 100 ml @ 100 mls/hr PRN PRN IVPB PENDING LAB VALUE; Start 05/08/18 at 14:30 Nitroglycerin/ Dextrose 250 ml @ 1.5 mls/hr PER PROTOCOL IV Last administered on 05/09/18at 05:49; Admin Dose 21 MLS/HR; Start 05/08/18 at 14:30 Diagnostic Test (Pha) (Accu-Chek) 1 ea Q1H XX Last administered on 05/10/18at 08:08; Admin Dose 1 EA; Start 05/08/18 at 16:00 Insulin Human Regular 100 unit/ Sodium Chloride 100 ml @ 0 mls/hr PER PROTOCOL IV Last administered on 05/09/18at 20:19; Admin Dose 5 MLS/HR; Start 05/08/18 at 16:00 Miscellaneous Information (* Miscellaneous Pharmacy Order) Treatment of Hypoglycemia: 1.BG 51... Per protocol XX ; Start 05/08/18 at 16:00 Dextrose (D50w Syringe) 25 ml Q15M PRN IV DECREASED GLUCOSE; Start 05/08/18 at 16:00 Dextrose (D50w Syringe) 50 ml Q15M PRN IV DECREASED GLUCOSE; Start 05/08/18 at 16:00 Atorvastatin Calcium (Lipitor) 40 mg HS PO Last administered on 05/09/18at 21:14; Admin Dose 40 MG; Start 05/08/18 at 21:00 Albumin Human 250 ml @ 500 mls/hr PRN PRN IV NOTE Last administered on 05/10/18at 02:35; Admin Dose 500 MLS/HR; Start 05/08/18 at 19:00 Acetaminophen (Tylenol Supp) 650 mg Q4H PRN [place] MILD PAIN(1-3) OR TEMP>38C Last administered on 05/08/18at 23:25; Admin Dose 650 MG; Start 05/08/18 at 22:30 Piperacillin Sod/ Tazobactam Sod 100 ml @ 200 mls/hr Q6 IVPB Last administered on 05/10/18at 05:55; Admin Dose 200 MLS/HR; Start 05/09/18 at 01:00 Vancomycin HCl (Vanco Iv Per Pharmacy) VANCOMYCIN PER PHARMACY PER PROTOCOL XX ; Start 05/09/18 at 01:00 Vancomycin/Sodium Chloride 250 ml @ 125 mls/hr Q12H IVPB Last administered on 05/10/18at 04:14; Admin Dose 125 MLS/HR; Start 05/09/18 at 16:00 Miscellaneous Information (*Rx Drug Level Order Reminder*) VANCO TROUGH 05/10 @ 1,500 ONCE ONCE XX ; Start 05/10/18 at 15:00; Stop 05/10/18 at 15:01 Aspirin (Aspirin) 162 mg DAILY PO ; Start 05/10/18 at 09:00 Metoprolol Tartrate (Lopressor) 25 mg Q8 PO Last administered on 05/10/18at 05:56; Admin Dose 25 MG; Start 05/09/18 at 14:00 Trazodone HCl (Desyrel) 50 mg HS MAY REPEAT X 1 PRN PO insomnia; Start 05/09/18 at 15:00 NEIL CEDEÑO MD May 10, 2018 08:48
[2018-05-10] MEDS: ASPIRIN 81 MG TAB PO SCH (10:15)
[2018-05-10] MEDS: ENOXAPARIN 40 MG/0.4 ML SYG SC SCH (10:18)
--- NOTE | 2018-05-10 11:04 | PN ---
Date/Time of Note Date/Time of Note DATE: 05/10/18 TIME: 11:00 Assessment/Plan Lines/Catheters IV Catheter Type (from Nrsg): Cordis Freed in Place (from Nrsg): Yes Assessment/Plan Assessment/Plan Assessment/Plan SP CABG BP under better control will DC CT Lasix Pulm toilet UP to chair Subjective 24 Hr Interval Summary Constitutional: improved Pain Control: mild Exam/Review of Systems Vital Signs Vitals Vital Signs Date Temp Pulse Resp B/P (MAP) Pulse Ox O2 O2 Flow FiO2 Time Delivery Rate 05/10/18 90 08:00 05/10/18 99.1 18 147/72 99 Nasal 08:00 (97) Cannula 05/10/18 4.0 08:00 05/09/18 44 00:58 Intake and Output 05/09/18 05/09/18 05/10/18 1515:00 23:00 07:00 IntakeIntake Total 934.15 ml 724.0 ml 666 ml OutputOutput Total 299 ml 964 ml 331 ml BalanceBalance 635.15 ml -240.0 ml 335 ml Exam ENMT: nl external ears & nose, nl lips & teeth, nl nasal mucosa & septum, mucosa pink and moist Neck: supple, non-tender Respiratory: clear to auscultation, normal air movement Cardiovascular: regular rate and rhythm, nl pulses Musculoskeletal: nl extremities to inspection, nl gait and stance Results Result Diagram: 05/10/1842705/10/18427 MANUEL TORRES MD May 10, 2018 11:04
--- NOTE | 2018-05-10 11:55 | RADRPT ---
Vent Rate: 101 bpm RR Interval: 0 msec OR Interval: 158 msec QRS Duration: 80 msec QT Interval: 364 msec QTC Interval: 471 msec P-R-T [place]: 62 - 22 - 5 degrees Sinus tachycardia Nonspecific ST abnormality Abnormal ECG Electronically Signed By: Renato Hercules [id number]
--- NOTE | 2018-05-10 12:01 | RADRPT ---
Vent Rate: 102 bpm RR Interval: 0 msec HI Interval: 126 msec QRS Duration: 70 msec QT Interval: 346 msec QTC Interval: 450 msec P-R-T [place]: 48 - 32 - 10 degrees Sinus tachycardia Nonspecific T wave abnormality Abnormal ECG Electronically Signed By: Renato Hercules [id number]
--- NOTE | 2018-05-10 12:04 | RADRPT ---
Vent Rate: 91 bpm RR Interval: 0 msec NM Interval: 120 msec QRS Duration: 76 msec QT Interval: 388 msec QTC Interval: 477 msec P-R-T [place]: 47 - 32 - 14 degrees Normal sinus rhythm Prolonged QT Abnormal ECG Electronically Signed By: Renato Hercules [id number]
[2018-05-10] MEDS ORDERED: INSULIN GLARGINE [LANTus] (100 UNITS/ML) SYG SC SCH (15:00)
[2018-05-10] MEDS: INSULIN ASPART [NOVOLOG] 3 ML PEN SC SCH ×2 (17:03→21:00)
[2018-05-10] MEDS: ONDANSETRON 4 MG INJ IV PRN (19:52)
--- NOTE | 2018-05-10 21:13 | CONS ---
Date/Time of Note Date/Time of Note DATE: 05/10/18 TIME: 21:11 Assessment/Plan Assessment/Plan Assessment/Plan Severe obstructive coronary artery disease, s/p CABG 05/08/18 MILLER-LAD, SVG-OM, SVG-PDA Preserved Ejection Fraction Diabetes Hypertension -pt s/p CABG -cont ASA, Statin -Increase dose of Beta-vanna -Start standing Lasix -Encourage incentive spirometry Result Diagram: 05/10/18 0428 05/10/18 0428 Results 24hrs Laboratory Tests Test 05/09/18 22:10 05/09/18 23:04 05/10/18 00:01 05/10/18 02:08 Bedside Glucose 144 134 136 142 Test 05/10/18 04:08 05/10/18 04:28 05/10/18 05:58 05/10/18 08:06 Bedside Glucose 122 110 143 White Blood Count 12.6 H Red Blood Count 3.23 L Hemoglobin 9.7 L Hematocrit 29.5 L Mean Corpuscular Volume 91.3 Mean Corpuscular 30.0 Hemoglobin Mean Corpuscular 32.9 Hemoglobin Concent Red Cell Distribution 15.5 H Width Platelet Count 179 Mean Platelet Volume 11.0 H Immature Granulocytes % 0.600 H Neutrophils % 78.2 H Lymphocytes % 12.2 L Monocytes % 8.7 Eosinophils % 0.1 Basophils % 0.2 Nucleated Red Blood 0.0 Cells % Immature Granulocytes # 0.070 H Neutrophils # 9.9 H Lymphocytes # 1.5 Monocytes # 1.1 H Eosinophils # 0.0 Basophils # 0.0 Nucleated Red Blood 0.0 Cells # Sodium Level 142 Potassium Level 4.3 Chloride Level 108 Carbon Dioxide Level 27 Anion Gap 7 Blood Urea Nitrogen 17 Creatinine 0.86 Glucose Level 129 Calcium Level 9.6 Phosphorus Level 5.4 #H Magnesium Level 2.2 Albumin 4.0 Test 05/10/18 10:20 05/10/18 12:04 05/10/18 14:15 05/10/18 14:52 Bedside Glucose 146 133 143 Vancomycin Level Trough 12.3 Test 05/10/18 16:34 Bedside Glucose 121 Consultation Date/Type/Reason Admit Date/Time May 03, 2018 at 23:07 Initial Consult Date Type of Consult cv 24 HR Interval Summary Free Text/Dictation no sob, dizziness, palp Exam/Review of Systems Vital Signs Vitals Vital Signs Date Temp Pulse Resp B/P (MAP) Pulse Ox O2 O2 Flow FiO2 Time Delivery Rate 05/10/18 98 32 161/78 98 Nasal 2.0 18:03 (105) Cannula 05/10/18 99.8 16:00 05/09/18 44 00:58 Intake and Output 05/09/18 05/09/18 05/10/18 1515:00 23:00 07:00 IntakeIntake Total 934.15 ml 724.0 ml 666 ml OutputOutput Total 299 ml 964 ml 331 ml BalanceBalance 635.15 ml -240.0 ml 335 ml Exam nad Constitutional: alert, oriented Head: normocephalic Respiratory: other (course bs, no wheeze) Cardiovascular: regular rate and rhythm, other (s1s2) Gastrointestinal: soft, non-tender, bowel sounds Extremities: edema Medications Medications Current Medications Acetaminophen (Tylenol Tab) 650 mg Q6H PRN PO MILD PAIN(1-3)OR ELEVATED TEMP; Start 05/03/18 at 23:30 IV Flush (NS 3 ml) 3 ml PER PROTOCOL IV ; Start 05/04/18 at 01:00 Ondansetron HCl (Zofran Inj) 4 mg Q6H PRN IV NAUSEA AND/OR VOMITING Last administered on 05/10/18at 19:52; Admin Dose 4 MG; Start 05/04/18 at 01:00 Nitroglycerin (Nitroglycerin (Sl Tab) 0.4 Mg) 1 tab Q5M PRN SL CHEST PAIN; Start 05/04/18 at 01:00 Acetaminophen/ Hydrocodone Bitart ([place] (5/325)) 1 tab Q6H PRN PO PAIN LEVEL 4-6 Last administered on 05/09/18at 10:30; Admin Dose 1 TAB; Start 05/04/18 at 01:00 Enoxaparin Sodium (Lovenox) 40 mg DAILY SC Last administered on 05/10/18at 10:18; Admin Dose 40 MG; Start 05/04/18 at 09:00 Albuterol/ Ipratropium (Duoneb) 3 ml Q2H RESP THERAPY PRN HHN SHORTNESS OF BREATH; Start 05/04/18 at 01:00 Miscellaneous Information 1 ea NOTE XX ; Start 05/04/18 at 01:00 Glucose (Glutose) 15 gm Q15M PRN PO DECREASED GLUCOSE; Start 05/04/18 at 01:00 Glucose (Glutose) 22.5 gm Q15M PRN PO DECREASED GLUCOSE; Start 05/04/18 at 01:00 Dextrose (D50w Syringe) 25 ml Q15M PRN IV DECREASED GLUCOSE; Start 05/04/18 at 01:00 Dextrose (D50w Syringe) 50 ml Q15M PRN IV DECREASED GLUCOSE; Start 05/04/18 at 01:00 Glucagon (Glucagen) 1 mg Q15M PRN IM DECREASED GLUCOSE; Start 05/04/18 at 01:00 Glucose (Glutose) 15 gm Q15M PRN BUCCAL DECREASED GLUCOSE; Start 05/04/18 at 01:00 Nitroglycerin/ Dextrose 250 ml @ 1.5 mls/hr PER PROTOCOL IV Last administered on 05/08/18at 16:00; Admin Dose 60 MLS/HR; Start 05/08/18 at 14:00 Dopamine HCl/ Dextrose 250 ml @ 5.775 mls/ hr PER PROTOCOL IV ; Start 05/08/18 at 14:00 Morphine Sulfate (morphine) 10 mg Q4H PRN IV SEVERE PAIN LEVEL 7-10; Start 05/08/18 at 14:00 Potassium Chloride 40 meq/ Calcium Chloride 1 gm/Dextrose/ Sodium Chloride 1,030 ml @ 60 mls/hr [id number] IV Last administered on 05/10/18at 13:28; Admin Dose 60 MLS/HR; Start 05/08/18 at 16:00 Hydromorphone HCl (Dilaudid) 0.2 mg Q1H PRN IV PAIN LEVEL 1-5 Last administered on 05/09/18at 08:28; Admin Dose 0.2 MG; Start 05/08/18 at 14:30 Hydromorphone HCl (Dilaudid) 0.4 mg Q1H PRN IV PAIN LEVEL 6-10 Last administered on 05/10/18at 20:00; Admin Dose 0.4 MG; Start 05/08/18 at 14:30 Oxycodone/ Acetaminophen (Percocet (5/ 325)) 1 tab Q3H PRN PO PAIN LEVEL 1-5; Start 05/08/18 at 14:30 Oxycodone/ Acetaminophen (Percocet (5/ 325)) 2 tab Q3H PRN PO PAIN LEVEL 6-10; Start 05/08/18 at 14:30 Ondansetron HCl (Zofran Inj) 2 mg ONCE PRN IV NAUSEA AND/OR VOMITING Last administered on 05/09/18 09:51; Admin Dose 2 MG; Start 05/08/18 at 14:30 Ondansetron HCl (Zofran Inj) 4 mg Q6H PRN IV NAUSEA AND/OR VOMITING; Start 05/08/18 at 14:30 Famotidine (Pepcid Iv) 20 mg BID@08,20 IV Last administered on 05/10/18at 21:08; Admin Dose 20 MG; Start 05/08/18 at 20:00 Acetaminophen (Tylenol Liquid) 650 mg Q3H PRN NGT ELEVATED TEMPERATURE; Start 05/08/18 at 14:30 Potassium Chloride 50 ml @ 50 mls/hr SEE DIRECTION PRN IVPB PENDING LAB VALUE Last administered on 05/09/18 01:18; Admin Dose 50 MLS/HR; Start 05/08/18 at 14:30 Magnesium Sulfate/ Dextrose 100 ml @ 100 mls/hr PRN PRN IVPB PENDING LAB VALUE; Start 05/08/18 at 14:30 Nitroglycerin/ Dextrose 250 ml @ 1.5 mls/hr PER PROTOCOL IV Last administered on 05/09/18 05:49; Admin Dose 21 MLS/HR; Start 05/08/18 at 14:30 Dextrose (D50w Syringe) 25 ml Q15M PRN IV DECREASED GLUCOSE; Start 05/08/18 at 16:00 Atorvastatin Calcium (Lipitor) 40 mg HS PO Last administered on 05/09/18 21:14; Admin Dose 40 MG; Start 05/08/18 at 21:00 Albumin Human 250 ml @ 500 mls/hr PRN PRN IV NOTE Last administered on 05/10/18 02:35; Admin Dose 500 MLS/HR; Start 05/08/18 at 19:00 Acetaminophen (Tylenol Supp) 650 mg Q4H PRN [place] MILD PAIN(1-3) OR TEMP>38C Last administered on 05/08/18 23:25; Admin Dose 650 MG; Start 05/08/18 at 22:30 Piperacillin Sod/ Tazobactam Sod 100 ml @ 200 mls/hr Q6 IVPB Last administered on 1/9/19at 18:57; Admin Dose 200 MLS/HR; Start 05/09/18 at 01:00 Vancomycin HCl (Vanco Iv Per Pharmacy) VANCOMYCIN PER PHARMACY PER PROTOCOL XX ; Start 05/09/18 at 01:00 Vancomycin/Sodium Chloride 250 ml @ 125 mls/hr Q12H IVPB Last administered on 05/10/18at 17:02; Admin Dose 125 MLS/HR; Start 05/09/18 at 16:00 Aspirin (Aspirin) 162 mg DAILY PO Last administered on 05/10/18at 10:15; Admin Dose 162 MG; Start 05/10/18 at 09:00 Metoprolol Tartrate (Lopressor) 25 mg Q8 PO Last administered on 05/10/18at 14:16; Admin Dose 25 MG; Start 05/09/18 at 14:00 Trazodone HCl (Desyrel) 50 mg HS MAY REPEAT X 1 PRN PO insomnia; Start 05/09/18 at 15:00 Insulin Glargine (Lantus) 12 units DAILY@2000 SC ; Start 05/11/18 at 20:00 Insulin Aspart (Novolog Insulin Pen) NOVOLOG *MILD* ALGORITHM WITH MEALS BEDTIME SC ; Start 05/10/18 at 17:35 Vinny Simons DO May 10, 2018 21:13
[2018-05-10] MEDS: FUROSEMIDE 20 MG INJ IV SCH (22:27)
[2018-05-10] MEDS: ATORVASTATIN 40 MG TAB PO SCH (22:36)
[2018-05-10] MEDS: METOPROLOL 50 MG TAB PO SCH (22:39)
[2018-05-11] VITALS (19 sets, daily range): BP systolic 84–156; BP diastolic 49–88; PULSE 83–102; RESP 21–35
[2018-05-11] MEDS: PIPER-TAZO 3.375 GM IV (PMX) 100 ML IVPB SCH ×5 (00:21→23:07)
[2018-05-11] MEDS ORDERED: LORAZEPAM 4 MG/ML VIAL IV ONE ×2 (02:30→06:30)
[2018-05-11] MEDS ORDERED: LORAZEPAM 2 MG INJ IV ONE (02:30)
[2018-05-11] MEDS: VANCOMYCIN 750 MG (PMX) 250 ML IVPB SCH ×2 (04:07→17:15)
[2018-05-11] MEDS: FUROSEMIDE 20 MG INJ IV SCH ×2 (05:54→14:36)
[2018-05-11] MEDS: METOPROLOL 50 MG TAB PO SCH ×3 (05:55→21:35)
[2018-05-11] MEDS ORDERED: LORAZEPAM 4 MG/ML VIAL IM SCH (06:30)
[2018-05-11] MEDS: INSULIN ASPART [NOVOLOG] 3 ML PEN SC SCH ×4 (08:08→21:30)
[2018-05-11] MEDS: ASPIRIN 81 MG TAB PO SCH (08:14)
[2018-05-11] MEDS: ENOXAPARIN 40 MG/0.4 ML SYG SC SCH (08:19)
[2018-05-11] MEDS: FAMOTIDINE 20 MG INJ IV SCH ×2 (08:39→23:07)
[2018-05-11] MEDS: HYDROmorphONE 0.5 MG/0.5 ML SYG IV PRN (08:40)
--- NOTE | 2018-05-11 09:02 | PN ---
Date/Time of Note Date/Time of Note DATE: 05/11/18 TIME: 09:02 Assessment/Plan VTE Prophylaxis Risk score (from Ns)>0 risk: 16 SCD applied (from [facility]): Yes Pharmacological prophylaxis: heparin Lines/Catheters IV Catheter Type (from [facility]): Peripheral IV Urinary Cath still in place: No Assessment/Plan Assessment/Plan 1. CAD s/p CABG with triple vessel disease - CT surgery on board and appreciate consultation. - Patient tolerated CABG without any acute complications. - Cardiology on board and appreciate recommendations. started on lasix and BB increased for better HR control 2. Hypertension - medication adjustments made and will continue to monitor 3. Dyslipidemia - Will continue on statin. 4. Right sided infiltrate - Continue on IV antibiotics and monitor for improvement - [place] cultures negative - WBC elevated - Lactic acid normalized 5. Diabetes Mellitus - A1c noted - hold home metformin 6. Disposition - Started on Lasix and BB dose increased - will start on Seroquel at night given development of hospital acquired delirium Result Diagram: 05/10/18 0428 05/10/18 0428 Results 24hrs Laboratory Tests Test 05/10/18 10:20 05/10/18 12:04 05/10/18 14:15 05/10/18 14:52 Bedside Glucose 146 133 143 Vancomycin Level Trough 12.3 Test 05/10/18 16:34 05/10/18 21:14 05/10/18 22:28 05/11/18 08:05 Bedside Glucose 121 144 167 191 Subjective 24 Hr Interval Summary Free Text/Dictation Patient confused and per nursing was verbally abusive to staff overnight. Discussed with family at bedside need to reorient given most likely developed hospital delirium. Exam/Review of Systems Vital Signs Vitals Vital Signs Date Temp Pulse Resp B/P (MAP) Pulse Ox O2 O2 Flow FiO2 Time Delivery Rate 05/11/18 98.1 08:00 05/11/18 94 23 152/85 97 Nasal 08:00 (107) Cannula 05/11/18 2.0 00:54 05/09/18 44 00:58 Intake and Output 05/10/18 05/10/18 05/11/18 1515:00 23:00 07:00 IntakeIntake Total 548 ml 675 ml 220 ml OutputOutput Total 324 ml 338 ml 800 ml BalanceBalance 224 ml 337 ml -580 ml Exam General: Patient is laying in bed in no acute distress. pleasantly confused Neck: Supple Respiratory: Clear to auscultation bilaterally. no wheezing or rhonchi Chest: sternal dressing in place with no discharge or drainage Cardiovascular: S1, S2, regular rate and rhythm, no obvious murmurs Gastrointestinal: soft, non-tender to palpation, no distended bowel sounds heard. Neurological: Moves all extremities spontaneously Skin: No new skin lesions Medications Medications Current Medications Acetaminophen (Tylenol Tab) 650 mg Q6H PRN PO MILD PAIN(1-3)OR ELEVATED TEMP; Start 05/03/18 at 23:30 IV Flush (NS 3 ml) 3 ml PER PROTOCOL IV ; Start 05/04/18 at 01:00 Ondansetron HCl (Zofran Inj) 4 mg Q6H PRN IV NAUSEA AND/OR VOMITING Last administered on 05/10/18at 19:52; Admin Dose 4 MG; Start 05/04/18 at 01:00 Nitroglycerin (Nitroglycerin (Sl Tab) 0.4 Mg) 1 tab Q5M PRN SL CHEST PAIN; Start 05/04/18 at 01:00 Acetaminophen/ Hydrocodone Bitart ([place] (5/325)) 1 tab Q6H PRN PO PAIN LEVEL 4-6 Last administered on 05/09/18at 10:30; Admin Dose 1 TAB; Start 05/04/18 at 01:00 Enoxaparin Sodium (Lovenox) 40 mg DAILY SC Last administered on 05/11/18at 08:19; Admin Dose 40 MG; Start 05/04/18 at 09:00 Albuterol/ Ipratropium (Duoneb) 3 ml Q2H RESP THERAPY PRN HHN SHORTNESS OF BREATH; Start 05/04/18 at 01:00 Miscellaneous Information 1 ea NOTE XX ; Start 05/04/18 at 01:00 Glucose (Glutose) 15 gm Q15M PRN PO DECREASED GLUCOSE; Start 05/04/18 at 01:00 Glucose (Glutose) 22.5 gm Q15M PRN PO DECREASED GLUCOSE; Start 05/04/18 at 01:00 Dextrose (D50w Syringe) 25 ml Q15M PRN IV DECREASED GLUCOSE; Start 05/04/18 at 01:00 Dextrose (D50w Syringe) 50 ml Q15M PRN IV DECREASED GLUCOSE; Start 05/04/18 at 01:00 Glucagon (Glucagen) 1 mg Q15M PRN IM DECREASED GLUCOSE; Start 05/04/18 at 01:00 Glucose (Glutose) 15 gm Q15M PRN BUCCAL DECREASED GLUCOSE; Start 05/04/18 at 01:00 Nitroglycerin/ Dextrose 250 ml @ 1.5 mls/hr PER PROTOCOL IV Last administered on 05/08/18at 16:00; Admin Dose 60 MLS/HR; Start 05/08/18 at 14:00 Dopamine HCl/ Dextrose 250 ml @ 5.775 mls/ hr PER PROTOCOL IV ; Start 05/08/18 at 14:00 Morphine Sulfate (morphine) 10 mg Q4H PRN IV SEVERE PAIN LEVEL 7-10; Start 05/08/18 at 14:00 Potassium Chloride 40 meq/ Calcium Chloride 1 gm/Dextrose/ Sodium Chloride 1,030 ml @ 60 mls/hr [id number] IV Last administered on 05/10/18at 13:28; Admin Dose 60 MLS/HR; Start 05/08/18 at 16:00 Hydromorphone HCl (Dilaudid) 0.2 mg Q1H PRN IV PAIN LEVEL 1-5 Last administered on 05/09/18at 08:28; Admin Dose 0.2 MG; Start 05/08/18 at 14:30 Hydromorphone HCl (Dilaudid) 0.4 mg Q1H PRN IV PAIN LEVEL 6-10 Last administered on 05/11/18at 08:40; Admin Dose 0.4 MG; Start 05/08/18 at 14:30 Oxycodone/ Acetaminophen (Percocet (5/ 325)) 1 tab Q3H PRN PO PAIN LEVEL 1-5; Start 05/08/18 at 14:30 Oxycodone/ Acetaminophen (Percocet (5/ 325)) 2 tab Q3H PRN PO PAIN LEVEL 6-10; Start 05/08/18 at 14:30 Ondansetron HCl (Zofran Inj) 2 mg ONCE PRN IV NAUSEA AND/OR VOMITING Last administered on 05/09/18at 09:51; Admin Dose 2 MG; Start 05/08/18 at 14:30 Ondansetron HCl (Zofran Inj) 4 mg Q6H PRN IV NAUSEA AND/OR VOMITING; Start 05/08/18 at 14:30 Famotidine (Pepcid Iv) 20 mg BID@08,20 IV Last administered on 05/11/18at 08:39; Admin Dose 20 MG; Start 05/08/18 at 20:00 Acetaminophen (Tylenol Liquid) 650 mg Q3H PRN NGT ELEVATED TEMPERATURE; Start 05/08/18 at 14:30 Potassium Chloride 50 ml @ 50 mls/hr SEE DIRECTION PRN IVPB PENDING LAB VALUE Last administered on 05/09/18at 01:18; Admin Dose 50 MLS/HR; Start 05/08/18 at 14:30 Magnesium Sulfate/ Dextrose 100 ml @ 100 mls/hr PRN PRN IVPB PENDING LAB VALUE; Start 05/08/18 at 14:30 Nitroglycerin/ Dextrose 250 ml @ 1.5 mls/hr PER PROTOCOL IV Last administered on 05/09/18at 05:49; Admin Dose 21 MLS/HR; Start 05/08/18 at 14:30 Dextrose (D50w Syringe) 25 ml Q15M PRN IV DECREASED GLUCOSE; Start 05/08/18 at 16:00 Atorvastatin Calcium (Lipitor) 40 mg HS PO Last administered on 05/10/18at 22:36; Admin Dose 40 MG; Start 05/08/18 at 21:00 Albumin Human 250 ml @ 500 mls/hr PRN PRN IV NOTE Last administered on 05/10/18at 02:35; Admin Dose 500 MLS/HR; Start 05/08/18 at 19:00 Acetaminophen (Tylenol Supp) 650 mg Q4H PRN [place] MILD PAIN(1-3) OR TEMP>38C Last administered on 05/08/18at 23:25; Admin Dose 650 MG; Start 05/08/18 at 22:30 Piperacillin Sod/ Tazobactam Sod 100 ml @ 200 mls/hr Q6 IVPB Last administered on 05/11/18at 05:53; Admin Dose 200 MLS/HR; Start 05/09/18 at 01:00 Vancomycin HCl (Vanco Iv Per Pharmacy) VANCOMYCIN PER PHARMACY PER PROTOCOL XX ; Start 05/09/18 at 01:00 Vancomycin/Sodium Chloride 250 ml @ 125 mls/hr Q12H IVPB Last administered on 05/11/18at 04:07; Admin Dose 125 MLS/HR; Start 05/09/18 at 16:00 Aspirin (Aspirin) 162 mg DAILY PO Last administered on 05/11/18at 08:14; Admin Dose 162 MG; Start 05/10/18 at 09:00 Trazodone HCl (Desyrel) 50 mg HS MAY REPEAT X 1 PRN PO insomnia; Start 05/09/18 at 15:00 Insulin Glargine (Lantus) 12 units DAILY@2000 SC ; Start 05/11/18 at 20:00 Insulin Aspart (Novolog Insulin Pen) NOVOLOG *MILD* ALGORITHM WITH MEALS BEDTIME SC Last administered on 05/11/18at 08:08; Admin Dose 2 UNIT; Start 05/10/18 at 17:35 Metoprolol Tartrate (Lopressor) 50 mg Q8 PO Last administered on 05/11/18at 05:55; Admin Dose 50 MG; Start 05/10/18 at 22:00 Furosemide (Lasix) 20 mg Q8 IV Last administered on 05/11/18at 05:54; Admin Dose 20 MG; Start 05/10/18 at 22:00 NEIL CEDEÑO MD May 11, 2018 09:02
[2018-05-11] MEDS: ACETAMINOPHEN 650MG/20.3ML CUP NGT PRN ×2 (14:40→20:16)
[2018-05-11] MEDS: POTASSIUM CHLORIDE 40 MEQ, CALCIUM CHLORIDE 10% 1 GM in DEXTROSE 5%-0.225% NACL 1,000 ML IV SCH (14:51)
--- NOTE | 2018-05-11 15:49 | CONS ---
Date/Time of Note Date/Time of Note DATE: 05/11/18 TIME: 15:45 Assessment/Plan Assessment/Plan Assessment/Plan Severe obstructive coronary artery disease, s/p CABG 05/08/18 MILLER-LAD, SVG-OM, SVG-PDA Preserved Ejection Fraction Diabetes Hypertension -pt s/p CABG -cont ASA, Statin -Continue beta-vanna and titrate as heart rate and blood pressure permits -Increased dose of Lasix -Encourage incentive spirometry -Maintain potassium above 4.0 and magnesium above 2.0 Result Diagram: 05/11/1830 05/11/1831 Results 24hrs Laboratory Tests Test 05/10/18 16:34 05/10/18 21:14 05/10/18 22:28 05/11/18 08:05 Bedside Glucose 121 144 167 191 Test 05/11/18 09:30 05/11/18 09:31 05/11/18 13:37 White Blood Count 10.6 Red Blood Count 3.10 L Hemoglobin 9.1 L Hematocrit 28.2 L Mean Corpuscular 91.0 Volume Mean Corpuscular 29.4 Hemoglobin Mean Corpuscular 32.3 Hemoglobin Concent Red Cell 14.6 H Distribution Width Platelet Count 162 Mean Platelet Volume 10.2 Immature 0.800 H Granulocytes % Neutrophils % 77.4 H Lymphocytes % 13.6 L Monocytes % 7.8 Eosinophils % 0.1 Basophils % 0.3 Nucleated Red Blood 0.0 Cells % Immature 0.080 H Granulocytes # Neutrophils # 8.2 H Lymphocytes # 1.4 Monocytes # 0.8 Eosinophils # 0.0 Basophils # 0.0 Nucleated Red Blood 0.0 Cells # Sodium Level 142 Potassium Level 3.4 L Chloride Level 106 Carbon Dioxide Level 26 Anion Gap 10 Blood Urea Nitrogen 20 Creatinine 0.93 Glucose Level 184 Calcium Level 9.5 Phosphorus Level 5.1 H Magnesium Level 1.9 Albumin 3.6 Bedside Glucose 169 Consultation Date/Type/Reason Admit Date/Time May 03, 2018 at 23:07 Initial Consult Date Type of Consult cv 24 HR Interval Summary Free Text/Dictation Patient seen and examined. It have confusion overnight as per nursing staff. As per family at bedside, complains of being tired, denies shortness of breath Exam/Review of Systems Vital Signs Vitals Vital Signs Date Temp Pulse Resp B/P (MAP) Pulse Ox O2 O2 Flow FiO2 Time Delivery Rate 05/11/18 95 12:00 05/11/18 98.1 08:00 05/11/18 23 152/85 97 Nasal 08:00 (107) Cannula 05/11/18 2.0 00:54 05/09/18 44 00:58 Intake and Output 05/10/18 05/10/18 05/11/18 1414:59 22:59 06:59 IntakeIntake Total 486 ml 680 ml 280 ml OutputOutput Total 324 ml 255 ml 800 ml BalanceBalance 162 ml 425 ml -520 ml Exam Sitting in chair, no apparent distress Constitutional: alert, oriented, obese Head: normocephalic Respiratory: other (Coarse breath sounds bilaterally, decreased at the bases) Cardiovascular: regular rate and rhythm, other (s1s2) Gastrointestinal: soft, non-tender, bowel sounds Extremities: edema Medications Medications Current Medications Acetaminophen (Tylenol Tab) 650 mg Q6H PRN PO MILD PAIN(1-3)OR ELEVATED TEMP; Start 05/03/18 at 23:30 IV Flush (NS 3 ml) 3 ml PER PROTOCOL IV ; Start 05/04/18 at 01:00 Ondansetron HCl (Zofran Inj) 4 mg Q6H PRN IV NAUSEA AND/OR VOMITING Last administered on 05/10/18at 19:52; Admin Dose 4 MG; Start 05/04/18 at 01:00 Nitroglycerin (Nitroglycerin (Sl Tab) 0.4 Mg) 1 tab Q5M PRN SL CHEST PAIN; Start 05/04/18 at 01:00 Acetaminophen/ Hydrocodone Bitart ([place] (5/325)) 1 tab Q6H PRN PO PAIN LEVEL 4-6 Last administered on 05/09/18at 10:30; Admin Dose 1 TAB; Start 05/04/18 at 01:0 0 Enoxaparin Sodium (Lovenox) 40 mg DAILY SC Last administered on 05/11/18at 08:19; Admin Dose 40 MG; Start 05/04/18 at 09:00 Albuterol/ Ipratropium (Duoneb) 3 ml Q2H RESP THERAPY PRN HHN SHORTNESS OF BREATH; Start 05/04/18 at 01:00 Miscellaneous Information 1 ea NOTE XX ; Start 05/04/18 at 01:00 Glucose (Glutose) 15 gm Q15M PRN PO DECREASED GLUCOSE; Start 05/04/18 at 01:00 Glucose (Glutose) 22.5 gm Q15M PRN PO DECREASED GLUCOSE; Start 05/04/18 at 01:00 Dextrose (D50w Syringe) 25 ml Q15M PRN IV DECREASED GLUCOSE; Start 05/04/18 at 01:00 Dextrose (D50w Syringe) 50 ml Q15M PRN IV DECREASED GLUCOSE; Start 05/04/18 at 01:00 Glucagon (Glucagen) 1 mg Q15M PRN IM DECREASED GLUCOSE; Start 05/04/18 at 01:00 Glucose (Glutose) 15 gm Q15M PRN BUCCAL DECREASED GLUCOSE; Start 05/04/18 at 01:00 Nitroglycerin/ Dextrose 250 ml @ 1.5 mls/hr PER PROTOCOL IV Last administered on 05/08/18at 16:00; Admin Dose 60 MLS/HR; Start 05/08/18 at 14:00 Dopamine HCl/ Dextrose 250 ml @ 5.775 mls/ hr PER PROTOCOL IV ; Start 05/08/18 at 14:00 Morphine Sulfate (morphine) 10 mg Q4H PRN IV SEVERE PAIN LEVEL 7-10; Start 05/08/18 at 14:00 Potassium Chloride 40 meq/ Calcium Chloride 1 gm/Dextrose/ Sodium Chloride 1,030 ml @ 60 mls/hr [id number] IV Last administered on 05/11/18at 14:51; Admin Dose 60 MLS/HR; Start 05/08/18 at 16:00 Hydromorphone HCl (Dilaudid) 0.2 mg Q1H PRN IV PAIN LEVEL 1-5 Last administered on 05/09/18at 08:28; Admin Dose 0.2 MG; Start 05/08/18 at 14:30 Hydromorphone HCl (Dilaudid) 0.4 mg Q1H PRN IV PAIN LEVEL 6-10 Last administered on 05/11/18at 08:40; Admin Dose 0.4 MG; Start 05/08/18 at 14:30 Oxycodone/ Acetaminophen (Percocet (5/ 325)) 1 tab Q3H PRN PO PAIN LEVEL 1-5; Start 05/08/18 at 14:30 Oxycodone/ Acetaminophen (Percocet (5/ 325)) 2 tab Q3H PRN PO PAIN LEVEL 6-10; Start 05/08/18 at 14:30 Ondansetron HCl (Zofran Inj) 2 mg ONCE PRN IV NAUSEA AND/OR VOMITING Last administered on 05/09/18 09:51; Admin Dose 2 MG; Start 05/08/18 at 14:30 Ondansetron HCl (Zofran Inj) 4 mg Q6H PRN IV NAUSEA AND/OR VOMITING; Start 05/08/18 at 14:30 Famotidine (Pepcid Iv) 20 mg BID@08,20 IV Last administered on 05/11/18at 08:39; Admin Dose 20 MG; Start 05/08/18 at 20:00 Acetaminophen (Tylenol Liquid) 650 mg Q3H PRN NGT ELEVATED TEMPERATURE Last administered on 05/11/18 14:40; Admin Dose 650 MG; Start 05/08/18 at 14:30 Potassium Chloride 50 ml @ 50 mls/hr SEE DIRECTION PRN IVPB PENDING LAB VALUE Last administered on 05/09/18 01:18; Admin Dose 50 MLS/HR; Start 05/08/18 at 14:30 Magnesium Sulfate/ Dextrose 100 ml @ 100 mls/hr PRN PRN IVPB PENDING LAB VALUE; Start 05/08/18 at 14:30 Nitroglycerin/ Dextrose 250 ml @ 1.5 mls/hr PER PROTOCOL IV Last administered on 05/09/18at 05:49; Admin Dose 21 MLS/HR; Start 05/08/18 at 14:30 Dextrose (D50w Syringe) 25 ml Q15M PRN IV DECREASED GLUCOSE; Start 05/08/18 at 16:00 Atorvastatin Calcium (Lipitor) 40 mg HS PO Last administered on 05/10/18at 22:36; Admin Dose 40 MG; Start 05/08/18 at 21:00 Albumin Human 250 ml @ 500 mls/hr PRN PRN IV NOTE Last administered on 02:35; Admin Dose 500 MLS/HR; Start 05/08/18 at 19:00 Acetaminophen (Tylenol Supp) 650 mg Q4H PRN [place] MILD PAIN(1-3) OR TEMP>38C Last administered on 05/08/18at 23:25; Admin Dose 650 MG; Start 05/08/18 at 22:30 Piperacillin Sod/ Tazobactam Sod 100 ml @ 200 mls/hr Q6 IVPB Last administered on 05/11/18at 12:06; Admin Dose 200 MLS/HR; Start 05/09/18 at 01:00 Vancomycin HCl (Vanco Iv Per Pharmacy) VANCOMYCIN PER PHARMACY PER PROTOCOL XX ; Start 05/09/18 at 01:00 Vancomycin/Sodium Chloride 250 ml @ 125 mls/hr Q12H IVPB Last administered on 05/11/18at 04:07; Admin Dose 125 MLS/HR; Start 05/09/18 at 16:00 Aspirin (Aspirin) 162 mg DAILY PO Last administered on 05/11/18at 08:14; Admin Dose 162 MG; Start 05/10/18 at 09:00 Trazodone HCl (Desyrel) 50 mg HS MAY REPEAT X 1 PRN PO insomnia; Start 05/09/18 at 15:00 Insulin Glargine (Lantus) 12 units DAILY@2000 SC ; Start 05/11/18 at 20:00 Insulin Aspart (Novolog Insulin Pen) NOVOLOG *MILD* ALGORITHM WITH MEALS BEDTIME SC Last administered on 05/11/18at 13:41; Admin Dose 1 UNIT; Start 05/10/18 at 17:35 Metoprolol Tartrate (Lopressor) 50 mg Q8 PO Last administered on 05/11/18at 14:36; Admin Dose 50 MG; Start 05/10/18 at 22:00 Furosemide (Lasix) 20 mg Q8 IV Last administered on 05/11/18at 14:36; Admin Dose 20 MG; Start 05/10/18 at 22:00 Quetiapine Fumarate (Seroquel) 25 mg QHS PO ; Start 05/11/18 at 21:00 Vinny Simons DO May 11, 2018 15:48
[2018-05-11] MEDS: POTASSIUM CHLORIDE 50 ML IVPB PRN (15:57)
[2018-05-11] MEDS ORDERED: MAGNESIUM SULFATE 1 GM/D5W 100 ML IVPB ONE (16:30)
--- NOTE | 2018-05-11 17:50 | PN ---
Date/Time of Note Date/Time of Note DATE: 05/11/18 TIME: 17:49 Assessment/Plan Lines/Catheters IV Catheter Type (from Nrsg): Peripheral IV Freed in Place (from Nrsg): No Assessment/Plan Assessment/Plan Assessment/Plan SP CABG BP under better control Lasix Pulm toilet To Tele DC Freed UP to chair Subjective 24 Hr Interval Summary Constitutional: improved Pain Control: mild Exam/Review of Systems Vital Signs Vitals Vital Signs Date Temp Pulse Resp B/P (MAP) Pulse Ox O2 O2 Flow FiO2 Time Delivery Rate 05/11/18 93 16:00 05/11/18 2.0 15:55 05/11/18 98.1 08:00 05/11/18 23 152/85 97 Nasal 08:00 (107) Cannula 05/09/18 44 00:58 Intake and Output 05/10/18 05/10/18 05/11/18 1515:00 23:00 07:00 IntakeIntake Total 548 ml 675 ml 220 ml OutputOutput Total 324 ml 338 ml 800 ml BalanceBalance 224 ml 337 ml -580 ml Exam Eyes: nl conjunctiva, EOMI, nl lids, nl sclera ENMT: nl external ears & nose, nl lips & teeth, nl nasal mucosa & septum, mucosa pink and moist Neck: supple, non-tender Respiratory: clear to auscultation, normal air movement Cardiovascular: regular rate and rhythm, nl pulses Gastrointestinal: soft, nl liver, spleen, non-tender Results Result Diagram: 05/11/1892905/11/1831 MANUEL TORRES MD May 11, 2018 17:50
[2018-05-11] MEDS: FUROSEMIDE 40 MG INJ IV SCH (18:08)
[2018-05-11] MEDS: INSULIN GLARGINE [LANTus] (100 UNITS/ML) SYG SC SCH (21:30)
[2018-05-11] MEDS: ATORVASTATIN 40 MG TAB PO SCH (21:35)
[2018-05-11] MEDS: QUETIAPINE 25 MG TAB PO SCH (21:36)
[2018-05-12] VITALS (30 sets, daily range): BP systolic 100–154; BP diastolic 55–87; PULSE 79–185; RESP 19–30
[2018-05-12] MEDS: POTASSIUM CHLORIDE 50 ML IVPB PRN ×3 (00:11→06:25)
[2018-05-12] MEDS: VANCOMYCIN 750 MG (PMX) 250 ML IVPB SCH (03:17)
[2018-05-12] MEDS: PIPER-TAZO 3.375 GM IV (PMX) 100 ML IVPB SCH ×3 (05:45→17:29)
[2018-05-12] MEDS: FUROSEMIDE 40 MG INJ IV SCH ×2 (05:45→17:29)
[2018-05-12] MEDS: METOPROLOL 50 MG TAB PO SCH ×3 (05:46→22:51)
[2018-05-12] MEDS ORDERED: POTASSIUM CHLORIDE (SR) 20 MEQ TAB PO STA ×2 (08:41→23:27)
[2018-05-12] MEDS: FAMOTIDINE 20 MG INJ IV SCH ×2 (09:24→21:25)
[2018-05-12] MEDS: ASPIRIN 81 MG TAB PO SCH (09:25)
[2018-05-12] MEDS: INSULIN ASPART [NOVOLOG] 3 ML PEN SC SCH ×4 (09:26→21:32)
[2018-05-12] MEDS: ENOXAPARIN 40 MG/0.4 ML SYG SC SCH (09:26)
[2018-05-12] MEDS ORDERED: morphine 2 MG INJ IV PRN (09:30)
[2018-05-12] MEDS ORDERED: hydrOXYzine HCL 10 MG TAB PO PRN (09:30)
[2018-05-12] MEDS: traMADol 50 MG TAB PO PRN (10:33)
--- NOTE | 2018-05-12 12:17 | CONS ---
Date/Time of Note Date/Time of Note DATE: 05/12/18 TIME: 12:16 Assessment/Plan Assessment/Plan Assessment/Plan Severe obstructive coronary artery disease, s/p CABG 05/08/18 MILLER-LAD, SVG-OM, SVG-PDA Preserved Ejection Fraction Diabetes Hypertension -pt s/p CABG -cont ASA, Statin -Continue beta-vanna and titrate as heart rate and blood pressure permits -Lung examination improving on current dose of Lasix, continue as renal function blood pressure permits and titrate as needed -Encourage incentive spirometry and physical therapy -Maintain potassium above 4.0 and magnesium above 2.0 Result Diagram: 05/12/18 0430 05/12/18 0430 Results 24hrs Laboratory Tests Test 05/11/18 13:37 05/11/18 16:50 05/11/18 21:28 05/12/18 04:30 Bedside Glucose 169 173 219 White Blood Count 8.8 Red Blood Count 3.15 L Hemoglobin 9.3 L Hematocrit 28.2 L Mean Corpuscular 89.5 Volume Mean Corpuscular 29.5 Hemoglobin Mean Corpuscular 33.0 Hemoglobin Concent Red Cell 14.3 Distribution Width Platelet Count 185 Mean Platelet Volume 10.6 H Immature 0.600 H Granulocytes % Neutrophils % 69.6 Lymphocytes % 20.0 Monocytes % 8.5 Eosinophils % 0.8 Basophils % 0.5 Nucleated Red Blood 0.0 Cells % Immature 0.050 H Granulocytes # Neutrophils # 6.1 Lymphocytes # 1.8 Monocytes # 0.8 Eosinophils # 0.1 Basophils # 0.0 Nucleated Red Blood 0.0 Cells # Sodium Level 145 H Potassium Level 3.4 L Chloride Level 104 Carbon Dioxide Level 29 Anion Gap 12 Blood Urea Nitrogen 18 Creatinine 0.84 Glucose Level 150 Calcium Level 9.4 Phosphorus Level 4.4 Magnesium Level 2.2 Albumin 3.3 Test 05/12/18 09:24 05/12/18 11:59 Bedside Glucose 150 138 Consultation Date/Type/Reason Admit Date/Time May 03, 2018 at 23:07 Initial Consult Date Type of Consult cv 24 HR Interval Summary Free Text/Dictation Feeling better, less pain with breathing. Ambulating more as per family Exam/Review of Systems Vital Signs Vitals Vital Signs Date Temp Pulse Resp B/P (MAP) Pulse Ox O2 O2 Flow FiO2 Time Delivery Rate 05/12/18 83 08:00 05/12/18 25 107/71 Nasal 2.0 07:00 (83) Cannula 05/12/18 27 05:13 05/12/18 98.8 04:00 05/12/18 89 03:00 Intake and Output 05/11/18 05/11/18 05/12/18 1515:00 23:00 07:00 IntakeIntake Total 100 ml 850.0 ml 690 ml OutputOutput Total 2450 ml 1020 ml BalanceBalance 100 ml -1600.0 ml -330 ml Exam No apparent distress Constitutional: alert, oriented Head: normocephalic Respiratory: other (Coarse breath sounds bilaterally, no wheezing) Cardiovascular: regular rate and rhythm, other (S1-S2 heard) Gastrointestinal: soft, non-tender, bowel sounds Extremities: edema Medications Medications Current Medications Acetaminophen (Tylenol Tab) 650 mg Q6H PRN PO MILD PAIN(1-3)OR ELEVATED TEMP; Start 05/03/18 at 23:30 IV Flush (NS 3 ml) 3 ml PER PROTOCOL IV ; Start 05/04/18 at 01:00 Ondansetron HCl (Zofran Inj) 4 mg Q6H PRN IV NAUSEA AND/OR VOMITING Last administered on 05/10/18at 19:52; Admin Dose 4 MG; Start 05/04/18 at 01:00 Nitroglycerin (Nitroglycerin (Sl Tab) 0.4 Mg) 1 tab Q5M PRN SL CHEST PAIN; Start 05/04/18 at 01:00 Acetaminophen/ Hydrocodone Bitart ([place] (5/325)) 1 tab Q6H PRN PO PAIN LEVEL 4-6 Last administered on 05/09/18at 10:30; Admin Dose 1 TAB; Start 05/04/18 at 01:00 Enoxaparin Sodium (Lovenox) 40 mg DAILY SC Last administered on 05/12/18at 09:26; Admin Dose 40 MG; Start 05/04/18 at 09:00 Albuterol/ Ipratropium (Duoneb) 3 ml Q2H RESP THERAPY PRN HHN SHORTNESS OF BREATH; Start 05/04/18 at 01:00 Miscellaneous Information 1 ea NOTE XX ; Start 05/04/18 at 01:00 Glucose (Glutose) 15 gm Q15M PRN PO DECREASED GLUCOSE; Start 05/04/18 at 01:00 Glucose (Glutose) 22.5 gm Q15M PRN PO DECREASED GLUCOSE; Start 05/04/18 at 01:00 Dextrose (D50w Syringe) 25 ml Q15M PRN IV DECREASED GLUCOSE; Start 05/04/18 at 01:00 Dextrose (D50w Syringe) 50 ml Q15M PRN IV DECREASED GLUCOSE; Start 05/04/18 at 01:00 Glucagon (Glucagen) 1 mg Q15M PRN IM DECREASED GLUCOSE; Start 05/04/18 at 01:00 Glucose (Glutose) 15 gm Q15M PRN BUCCAL DECREASED GLUCOSE; Start 05/04/18 at 01:00 Oxycodone/ Acetaminophen (Percocet (5/ 325)) 1 tab Q3H PRN PO PAIN LEVEL 1-5; Start 05/08/18 at 14:30 Oxycodone/ Acetaminophen (Percocet (5/ 325)) 2 tab Q3H PRN PO PAIN LEVEL 6-10; Start 05/08/18 at 14:30 Ondansetron HCl (Zofran Inj) 2 mg ONCE PRN IV NAUSEA AND/OR VOMITING Last administered on 05/09/18at 09:51; Admin Dose 2 MG; Start 05/08/18 at 14:30 Ondansetron HCl (Zofran Inj) 4 mg Q6H PRN IV NAUSEA AND/OR VOMITING; Start 05/08/18 at 14:30 Famotidine (Pepcid Iv) 20 mg BID@08,20 IV Last administered on 05/12/18at 09:24; Admin Dose 20 MG; Start 05/08/18 at 20:00 Acetaminophen (Tylenol Liquid) 650 mg Q3H PRN NGT ELEVATED TEMPERATURE Last administered on 05/11/18at 20:16; Admin Dose 650 MG; Start 05/08/18 at 14:30 Magnesium Sulfate/ Dextrose 100 ml @ 100 mls/hr PRN PRN IVPB PENDING LAB VALUE; Start 05/08/18 at 14:30 Dextrose (D50w Syringe) 25 ml Q15M PRN IV DECREASED GLUCOSE; Start 05/08/18 at 16:00 Atorvastatin Calcium (Lipitor) 40 mg HS PO Last administered on 05/11/18at 21:35; Admin Dose 40 MG; Start 05/08/18 at 21:00 Acetaminophen (Tylenol Supp) 650 mg Q4H PRN [place] MILD PAIN(1-3) OR TEMP>38C Last administered on 05/08/18 23:25; Admin Dose 650 MG; Start 05/08/18 at 22:30 Piperacillin Sod/ Tazobactam Sod 100 ml @ 200 mls/hr Q6 IVPB Last administered on 05/12/18 12:00; Admin Dose 200 MLS/HR; Start 05/09/18 at 01:00 Aspirin (Aspirin) 162 mg DAILY PO Last administered on 05/12/18 09:25; Admin D ose 162 MG; Start 05/10/18 at 09:00 Trazodone HCl (Desyrel) 50 mg HS MAY REPEAT X 1 PRN PO insomnia; Start 05/09/18 at 15:00 Insulin Glargine (Lantus) 12 units DAILY@2000 SC Last administered on 05/11/18 21:30; Admin Dose 12 UNITS; Start 05/11/18 at 20:00 Insulin Aspart (Novolog Insulin Pen) NOVOLOG *MILD* ALGORITHM WITH MEALS BEDTIME SC Last administered on 05/12/18 09:26; Admin Dose 1 UNIT; Start 05/10/18 at 17:35 Metoprolol Tartrate (Lopressor) 50 mg Q8 PO Last administered on 05/12/18at 0 5:46; Admin Dose 50 MG; Start 05/10/18 at 22:00 Quetiapine Fumarate (Seroquel) 25 mg QHS PO Last administered on 05/11/18at 21:36; Admin Dose 25 MG; Start 05/11/18 at 21:00 Furosemide (Lasix) 40 mg BID DIURETICS IV Last administered on 05/12/18at 05:45; Admin Dose 40 MG; Start 05/11/18 at 18:00 Morphine Sulfate (morphine) 1 mg Q4H PRN IV SEVERE PAIN LEVEL 7-10; Start 05/12/18 at 09:30 Hydroxyzine HCl (Atarax) 10 mg Q6H PRN PO ITCHING; Start 05/12/18 at 09:30 Tramadol HCl (Ultram) 50 mg Q6H PRN PO PAIN LEVEL 1-3 Last administered on 05/12/18at 10:33; Admin Dose 50 MG; Start 05/12/18 at 09:30 Vinny Simons DO May 12, 2018 12:17
--- NOTE | 2018-05-12 15:10 | PN ---
Date/Time of Note Date/Time of Note DATE: 05/12/18 TIME: 15:10 Assessment/Plan Lines/Catheters IV Catheter Type (from Nrsg): Peripheral IV Freed in Place (from Nrsg): No Assessment/Plan Assessment/Plan SP CABG BP under better control Lasix Pulm toilet To Tele DC Freed UP to chair Subjective 24 Hr Interval Summary Constitutional: improved Pain Control: mild Exam/Review of Systems Vital Signs Vitals Vital Signs Date Temp Pulse Resp B/P (MAP) Pulse Ox O2 O2 Flow FiO2 Time Delivery Rate 05/12/18 98.4 91 25 135/65 97 Nasal 2.0 12:00 (88) Cannula 05/12/18 27 05:13 Intake and Output 05/11/18 05/11/18 05/12/18 1515:00 23:00 07:00 IntakeIntake Total 100 ml 850.0 ml 690 ml OutputOutput Total 2450 ml 1020 ml BalanceBalance 100 ml -1600.0 ml -330 ml Exam Head: normocephalic, atraumatic Eyes: nl conjunctiva, EOMI, nl lids, nl sclera ENMT: nl external ears & nose, nl lips & teeth, nl nasal mucosa & septum, mucosa pink and moist Neck: supple, non-tender Respiratory: clear to auscultation, normal air movement Cardiovascular: regular rate and rhythm, nl pulses Gastrointestinal: soft, nl liver, spleen, non-tender Results Result Diagram: 05/12/1842905/12/18429 MANUEL TORRES MD May 12, 2018 15:10
--- NOTE | 2018-05-12 16:08 | PN ---
Date/Time of Note Date/Time of Note DATE: 05/12/18 TIME: 16:04 Assessment/Plan VTE Prophylaxis Risk score (from Ns)>0 risk: 10 SCD applied (from Ns): Yes Pharmacological prophylaxis: heparin Lines/Catheters IV Catheter Type (from Nrs): Peripheral IV Urinary Cath still in place: No Assessment/Plan Assessment/Plan 1. CAD s/p CABG with triple vessel disease - CT surgery on board and appreciate consultation. Patient doing well and okay to transfer to tele. d/c tiwari - Patient tolerated CABG without any acute complications. - Cardiology on board and appreciate recommendations. Continue on lasix and BB 2. Hypertension - stable 3. Dyslipidemia - Will continue on statin. 4. Right sided infiltrate - Continue on antibiotics - [place] cultures negative - WBC normalized - Lactic acid normalized 5. Diabetes Mellitus - A1c noted - hold home metformin 6. Disposition - Okay for transfer to telemetry - continue current treatment per CT surgery and Cardiology recommendations Result Diagram: 05/12/18 0430 05/12/18 0430 Results 24hrs Laboratory Tests Test 05/11/18 16:50 05/11/18 21:28 05/12/18 04:30 05/12/18 09:24 Bedside Glucose 173 219 150 White Blood Count 8.8 Red Blood Count 3.15 L Hemoglobin 9.3 L Hematocrit 28.2 L Mean Corpuscular 89.5 Volume Mean Corpuscular 29.5 Hemoglobin Mean Corpuscular 33.0 Hemoglobin Concent Red Cell 14.3 Distribution Width Platelet Count 185 Mean Platelet Volume 10.6 H Immature 0.600 H Granulocytes % Neutrophils % 69.6 Lymphocytes % 20.0 Monocytes % 8.5 Eosinophils % 0.8 Basophils % 0.5 Nucleated Red Blood 0.0 Cells % Immature 0.050 H Granulocytes # Neutrophils # 6.1 Lymphocytes # 1.8 Monocytes # 0.8 Eosinophils # 0.1 Basophils # 0.0 Nucleated Red Blood 0.0 Cells # Sodium Level 145 H Potassium Level 3.4 L Chloride Level 104 Carbon Dioxide Level 29 Anion Gap 12 Blood Urea Nitrogen 18 Creatinine 0.84 Glucose Level 150 Calcium Level 9.4 Phosphorus Level 4.4 Magnesium Level 2.2 Albumin 3.3 Test 05/12/18 11:59 Bedside Glucose 138 Subjective 24 Hr Interval Summary Free Text/Dictation Patient still with poor appetite and complaining of pain in sternal area. More calm overnight. Exam/Review of Systems Vital Signs Vitals Vital Signs Date Temp Pulse Resp B/P (MAP) Pulse Ox O2 O2 Flow FiO2 Time Delivery Rate 05/12/18 91 23 127/69 98 Nasal 2.0 15:00 (88) Cannula 05/12/18 98.4 12:00 05/12/18 27 05:13 Intake and Output 05/11/18 05/11/18 05/12/18 1515:00 23:00 07:00 IntakeIntake Total 100 ml 850.0 ml 690 ml OutputOutput Total 2450 ml 1020 ml BalanceBalance 100 ml -1600.0 ml -330 ml Exam General: Patient is laying in bed in no acute distress. Neck: Supple Respiratory: Clear to auscultation bilaterally. no wheezing or rhonchi Chest: sternal dressing in place with no discharge or drainage Cardiovascular: S1, S2, regular rate and rhythm, no obvious murmurs Gastrointestinal: soft, non-tender to palpation, no distended bowel sounds heard. Neurological: Moves all extremities spontaneously Skin: No new skin lesions Medications Medications Current Medications Acetaminophen (Tylenol Tab) 650 mg Q6H PRN PO MILD PAIN(1-3)OR ELEVATED TEMP; Start 05/03/18 at 23:30 IV Flush (NS 3 ml) 3 ml PER PROTOCOL IV ; Start 05/04/18 at 01:00 Ondansetron HCl (Zofran Inj) 4 mg Q6H PRN IV NAUSEA AND/OR VOMITING Last administered on 05/10/18at 19:52; Admin Dose 4 MG; Start 05/04/18 at 01:00 Nitroglycerin (Nitroglycerin (Sl Tab) 0.4 Mg) 1 tab Q5M PRN SL CHEST PAIN; Start 05/04/18 at 01:00 Acetaminophen/ Hydrocodone Bitart ([place] (5/325)) 1 tab Q6H PRN PO PAIN LEVEL 4-6 Last administered on 05/09/18at 10:30; Admin Dose 1 TAB; Start 05/04/18 at 01:00 Enoxaparin Sodium (Lovenox) 40 mg DAILY SC Last administered on 05/12/18at 09:26; Admin Dose 40 MG; Start 05/04/18 at 09:00 Albuterol/ Ipratropium (Duoneb) 3 ml Q2H RESP THERAPY PRN HHN SHORTNESS OF BREATH; Start 05/04/18 at 01:00 Miscellaneous Information 1 ea NOTE XX ; Start 05/04/18 at 01:00 Glucose (Glutose) 15 gm Q15M PRN PO DECREASED GLUCOSE; Start 05/04/18 at 01:00 Glucose (Glutose) 22.5 gm Q15M PRN PO DECREASED GLUCOSE; Start 05/04/18 at 01:00 Dextrose (D50w Syringe) 25 ml Q15M PRN IV DECREASED GLUCOSE; Start 05/04/18 at 01:00 Dextrose (D50w Syringe) 50 ml Q15M PRN IV DECREASED GLUCOSE; Start 05/04/18 at 01:00 Glucagon (Glucagen) 1 mg Q15M PRN IM DECREASED GLUCOSE; Start 05/04/18 at 01:00 Glucose (Glutose) 15 gm Q15M PRN BUCCAL DECREASED GLUCOSE; Start 05/04/18 at 01:00 Oxycodone/ Acetaminophen (Percocet (5/ 325)) 1 tab Q3H PRN PO PAIN LEVEL 1-5; Start 05/08/18 at 14:30 Oxycodone/ Acetaminophen (Percocet (5/ 325)) 2 tab Q3H PRN PO PAIN LEVEL 6-10; Start 05/08/18 at 14:30 Ondansetron HCl (Zofran Inj) 2 mg ONCE PRN IV NAUSEA AND/OR VOMITING Last administered on 05/09/18at 09:51; Admin Dose 2 MG; Start 05/08/18 at 14:30 Ondansetron HCl (Zofran Inj) 4 mg Q6H PRN IV NAUSEA AND/OR VOMITING; Start 05/08/18 at 14:30 Famotidine (Pepcid Iv) 20 mg BID@08,20 IV Last administered on 05/12/18at 09:24; Admin Dose 20 MG; Start 05/08/18 at 20:00 Acetaminophen (Tylenol Liquid) 650 mg Q3H PRN NGT ELEVATED TEMPERATURE Last administered on 05/11/18at 20:16; Admin Dose 650 MG; Start 05/08/18 at 14:30 Magnesium Sulfate/ Dextrose 100 ml @ 100 mls/hr PRN PRN IVPB PENDING LAB VALUE; Start 05/08/18 at 14:30 Dextrose (D50w Syringe) 25 ml Q15M PRN IV DECREASED GLUCOSE; Start 05/08/18 at 16:00 Atorvastatin Calcium (Lipitor) 40 mg HS PO Last administered on 05/11/18at 21:35; Admin Dose 40 MG; Start 05/08/18 at 21:00 Acetaminophen (Tylenol Supp) 650 mg Q4H PRN [place] MILD PAIN(1-3) OR TEMP>38C Last administered on 05/08/18at 23:25; Admin Dose 650 MG; Start 05/08/18 at 22:30 Piperacillin Sod/ Tazobactam Sod 100 ml @ 200 mls/hr Q6 IVPB Last administered on 05/12/18at 12:00; Admin Dose 200 MLS/HR; Start 05/09/18 at 01:00 Aspirin (Aspirin) 162 mg DAILY PO Last administered on 05/12/18 09:25; Admin Dose 162 MG; Start 05/10/18 at 09:00 Trazodone HCl (Desyrel) 50 mg HS MAY REPEAT X 1 PRN PO insomnia; Start 05/09/18 at 15:00 Insulin Glargine (Lantus) 12 units DAILY@2000 SC Last administered on 05/11/18at 21:30; Admin Dose 12 UNITS; Start 05/11/18 at 20:00 Insulin Aspart (Novolog Insulin Pen) NOVOLOG *MILD* ALGORITHM WITH MEALS BEDTIME SC Last administered on 05/12/18at 09:26; Admin Dose 1 UNIT; Start 05/10 at 17:35 Metoprolol Tartrate (Lopressor) 50 mg Q8 PO Last administered on 05/12/18at 14:42; Admin Dose 50 MG; Start 05/10/18 at 22:00 Quetiapine Fumarate (Seroquel) 25 mg QHS PO Last administered on 05/11/18at 21:36; Admin Dose 25 MG; Start 05/11/18 at 21:00 Furosemide (Lasix) 40 mg BID DIURETICS IV Last administered on 05/12/18at 05:45; Admin Dose 40 MG; Start 05/11/18 at 18:00 Morphine Sulfate (morphine) 1 mg Q4H PRN IV SEVERE PAIN LEVEL 7-10; Start 05/12/18 at 09:30 Hydroxyzine HCl (Atarax) 10 mg Q6H PRN PO ITCHING; Start 05/12/18 at 09:30 Tramadol HCl (Ultram) 50 mg Q6H PRN PO PAIN LEVEL 1-3 Last administered on 05/12/18at 10:33; Admin Dose 50 MG; Start 05/12/18 at 09:30 NEIL CEDEÑO MD May 12, 2018 16:08
[2018-05-12] MEDS: QUETIAPINE 25 MG TAB PO SCH ×2 (21:00→21:25)
[2018-05-12] MEDS: ATORVASTATIN 40 MG TAB PO SCH (21:25)
[2018-05-12] MEDS: INSULIN GLARGINE [LANTus] (100 UNITS/ML) SYG SC SCH (21:27)
[2018-05-12] MEDS: ACETAMINOPHEN 325 MG TAB PO PRN (21:42)
[2018-05-12] MEDS ORDERED: AMIODARONE 150MG/D5W BOLUS 100 ML IV ONE (23:30)
[2018-05-12] MEDS ORDERED: AMIODARONE 900 MG in DEXTROSE 5% 482 ML IV SCH (23:30)
[2018-05-13] VITALS (13 sets, daily range): BP systolic 124–157; BP diastolic 63–74; PULSE 78–170; RESP 16–20
[2018-05-13] MEDS: PIPER-TAZO 3.375 GM IV (PMX) 100 ML IVPB SCH ×5 (00:02→23:25)
[2018-05-13] MEDS: AMIODARONE 200 MG TAB PO SCH ×4 (00:03→20:53)
--- NOTE | 2018-05-13 01:49 | RADRPT ---
Vent Rate: 88 bpm RR Interval: 0 msec MA Interval: 128 msec QRS Duration: 74 msec QT Interval: 412 msec QTC Interval: 498 msec P-R-T [employer]: 50 - 26 - 31 degrees Normal sinus rhythm Nonspecific ST and T wave abnormality Prolonged QT Abnormal ECG Electronically Signed By: Renato Hercules [id number]
[2018-05-13] MEDS: FUROSEMIDE 40 MG INJ IV SCH ×2 (05:50→17:02)
[2018-05-13] MEDS: METOPROLOL 50 MG TAB PO SCH ×3 (05:51→23:26)
[2018-05-13] MEDS: INSULIN ASPART [NOVOLOG] 3 ML PEN SC SCH ×4 (08:00→20:53)
[2018-05-13] MEDS ORDERED: POTASSIUM CHLORIDE (SR) 20 MEQ TAB PO STA ×2 (08:34→09:51)
[2018-05-13] MEDS: FAMOTIDINE 20 MG INJ IV SCH ×2 (08:52→20:52)
[2018-05-13] MEDS: ASPIRIN 81 MG TAB PO SCH (08:53)
[2018-05-13] MEDS: ENOXAPARIN 40 MG/0.4 ML SYG SC SCH (09:02)
--- NOTE | 2018-05-13 09:54 | CONS ---
Date/Time of Note Date/Time of Note DATE: 05/13/18 TIME: 09:53 Assessment/Plan Assessment/Plan Hospital Course Severe obstructive coronary artery disease, s/p CABG 05/08/18 MILLER-LAD, SVG-OM, SVG-PDA Preserved Ejection Fraction Diabetes Hypertension Assessment/Plan 1) amiodarone 200 tid 2) replete K and mag 3) continue beta vanna 4) consider AC if reoccurring afib Result Diagram: 05/13/1814 05/13/1814 Results 24hrs Laboratory Tests Test 05/12/18 11:59 05/12/18 17:22 05/12/18 20:51 05/13/18 05:14 Bedside Glucose 138 171 196 White Blood Count 8.5 Red Blood Count 3.31 L Hemoglobin 9.8 L Hematocrit 29.7 L Mean Corpuscular 89.7 Volume Mean Corpuscular 29.6 Hemoglobin Mean Corpuscular 33.0 Hemoglobin Concent Red Cell 14.0 Distribution Width Platelet Count 236 # Mean Platelet Volume 10.8 H Immature 0.400 Granulocytes % Neutrophils % 59.5 Lymphocytes % 27.2 Monocytes % 10.2 Eosinophils % 2.0 Basophils % 0.7 Nucleated Red Blood 0.0 Cells % Immature 0.030 Granulocytes # Neutrophils # 5.1 Lymphocytes # 2.3 Monocytes # 0.9 Eosinophils # 0.2 Basophils # 0.1 Nucleated Red Blood 0.0 Cells # Sodium Level 143 Potassium Level 3.7 Chloride Level 99 Carbon Dioxide Level 34 H Anion Gap 10 Blood Urea Nitrogen 17 Creatinine 0.92 Glucose Level 119 Calcium Level 9.3 Phosphorus Level 4.9 Magnesium Level 1.9 Albumin 3.6 Test 05/13/18 08:07 Bedside Glucose 138 Consultation Date/Type/Reason Admit Date/Time May 03, 2018 at 23:07 Initial Consult Date Type of Consult cv 24 HR Interval Summary Free Text/Dictation weak, earlier AFIB w RVR, converted with beta vanna, no chest pain or sob Detailed Summary Respiratory: shortness of breath Cardiovascular: no complaints Gastrointestinal: no complaints Musculoskeletal: no complaints Skin: no complaints Neurologic: no complaints Endocrine: no complaints Exam/Review of Systems Vital Signs Vitals Vital Signs Date Temp Pulse Resp B/P (MAP) Pulse Ox O2 O2 Flow FiO2 Time Delivery Rate 05/13/18 78 08:54 05/13/18 98.0 20 140/67 91 Nasal 07:44 (91) Cannula 05/12/18 2.0 23:00 05/12/18 27 05:13 Intake and Output 05/12/18 05/12/18 05/13/18 1515:00 23:00 07:00 IntakeIntake Total 330 ml 550 ml OutputOutput Total 880 ml 850 ml BalanceBalance -550 ml -300 ml Exam Constitutional: alert, oriented, frail Head: normocephalic, atraumatic Neck: supple Respiratory: clear to auscultation Cardiovascular: regular rate and rhythm Gastrointestinal: soft Musculoskeletal: nl extremities to inspection Medications Medications Current Medications Acetaminophen (Tylenol Tab) 650 mg Q6H PRN PO MILD PAIN(1-3)OR ELEVATED TEMP Last administered on 05/12/18at 21:42; Admin Dose 650 MG; Start 05/03/18 at 23:30 IV Flush (NS 3 ml) 3 ml PER PROTOCOL IV ; Start 05/04/18 at 01:00 Ondansetron HCl (Zofran Inj) 4 mg Q6H PRN IV NAUSEA AND/OR VOMITING Last administered on 05/10/18at 19:52; Admin Dose 4 MG; Start 05/04/18 at 01:00 Nitroglycerin (Nitroglycerin (Sl Tab) 0.4 Mg) 1 tab Q5M PRN SL CHEST PAIN; Start 05/04/18 at 01:00 Acetaminophen/ Hydrocodone Bitart ([place] (5/325)) 1 tab Q6H PRN PO PAIN LEVEL 4-6 Last administered on 05/09/18at 10:30; Admin Dose 1 TAB; Start 05/04/18 at 01:00 Enoxaparin Sodium (Lovenox) 40 mg DAILY SC Last administered on 05/13/18at 09:02; Admin Dose 40 MG; Start 05/04/18 at 09:00 Albuterol/ Ipratropium (Duoneb) 3 ml Q2H RESP THERAPY PRN HHN SHORTNESS OF BREATH; Start 05/04/18 at 01:00 Miscellaneous Information 1 ea NOTE XX ; Start 05/04/18 at 01:00 Glucose (Glutose) 15 gm Q15M PRN PO DECREASED GLUCOSE; Start 05/04/18 at 01:00 Glucose (Glutose) 22.5 gm Q15M PRN PO DECREASED GLUCOSE; Start 05/04/18 at 01:00 Dextrose (D50w Syringe) 25 ml Q15M PRN IV DECREASED GLUCOSE; Start 05/04/18 at 01:00 Dextrose (D50w Syringe) 50 ml Q15M PRN IV DECREASED GLUCOSE; Start 05/04/18 at 01:00 Glucagon (Glucagen) 1 mg Q15M PRN IM DECREASED GLUCOSE; Start 05/04/18 at 01:00 Glucose (Glutose) 15 gm Q15M PRN BUCCAL DECREASED GLUCOSE; Start 05/04/18 at 01:00 Oxycodone/ Acetaminophen (Percocet (5/ 325)) 1 tab Q3H PRN PO PAIN LEVEL 1-5; Start 05/08/18 at 14:30 Oxycodone/ Acetaminophen (Percocet (5/ 325)) 2 tab Q3H PRN PO PAIN LEVEL 6-10; Start 05/08/18 at 14:30 Ondansetron HCl (Zofran Inj) 2 mg ONCE PRN IV NAUSEA AND/OR VOMITING Last administered on 05/09/18at 09:51; Admin Dose 2 MG; Start 05/08/18 at 14:30 Ondansetron HCl (Zofran Inj) 4 mg Q6H PRN IV NAUSEA AND/OR VOMITING; Start 05/08/18 at 14:30 Famotidine (Pepcid Iv) 20 mg BID@08,20 IV Last administered on 05/13/18at 08:52; Admin Dose 20 MG; Start 05/08/18 at 20:00 Acetaminophen (Tylenol Liquid) 650 mg Q3H PRN NGT ELEVATED TEMPERATURE Last administered on 05/11/18at 20:16; Admin Dose 650 MG; Start 05/08/18 at 14:30 Magnesium Sulfate/ Dextrose 100 ml @ 100 mls/hr PRN PRN IVPB PENDING LAB VALUE; Start 05/08/18 at 14:30 Dextrose (D50w Syringe) 25 ml Q15M PRN IV DECREASED GLUCOSE; Start 05/08/18 at 16:00 Atorvastatin Calcium (Lipitor) 40 mg HS PO Last administered on 05/12/18at 21:25; Admin Dose 40 MG; Start 05/08/18 at 21:00 Acetaminophen (Tylenol Supp) 650 mg Q4H PRN [place] MILD PAIN(1-3) OR TEMP>38C Last administered on 05/08/18 23:25; Admin Dose 650 MG; Start 05/08/18 at 22:30 Piperacillin Sod/ Tazobactam Sod 100 ml @ 200 mls/hr Q6 IVPB Last administered on 05/13/18 05:51; Admin Dose 200 MLS/HR; Start 05/09/18 at 01:00 Aspirin (Aspirin) 162 mg DAILY PO Last administered on 05/13/18 08:53; Admin Dose 162 MG; Start 05/10/18 at 09:00 Trazodone HCl (Desyrel) 50 mg HS MAY REPEAT X 1 PRN PO insomnia; Start 05/09/18 at 15:00 Insulin Glargine (Lantus) 12 units DAILY@2000 SC Last administered on 05/12/18 21:27; Admin Dose 12 UNITS; Start 05/11/18 at 20:00 Insulin Aspart (Novolog Insulin Pen) NOVOLOG *MILD* ALGORITHM WITH MEALS BEDTIME SC Last administered on 05/12/18 21:32; Admin Dose 1 UNIT; Start 05/10/18 at 17:35 Metoprolol Tartrate (Lopressor) 50 mg Q8 PO Last administered on 05/13/18 05:51; Admin Dose 50 MG; Start 05/10/18 at 22:00 Furosemide (Lasix) 40 mg BID DIURETICS IV Last administered on 05/13/18 05:50; Admin Dose 40 MG; Start 05/11/18 at 18:00 Morphine Sulfate (morphine) 1 mg Q4H PRN IV SEVERE PAIN LEVEL 7-10; Start 05/12/18 at 09:30 Hydroxyzine HCl (Atarax) 10 mg Q6H PRN PO ITCHING; Start 05/12/18 at 09:30 Tramadol HCl (Ultram) 50 mg Q6H PRN PO PAIN LEVEL 1-3 Last administered on 05/12/18 10:33; Admin Dose 50 MG; Start 05/12/18 at 09:30 Amiodarone HCl (Cordarone) 200 mg TID PO Last administered on 05/13/18 08:54; Admin Dose 200 MG; Start 05/13/18 at 00:00 DIEGO ADLER MD May 13, 2018 09:54
[2018-05-13] MEDS ORDERED: MAGNESIUM SULFATE 1 GM/D5W 100 ML IVPB ONE (11:30)
[2018-05-13] MEDS: MEGESTROL 40 MG TAB PO SCH ×4 (12:19→20:52)
--- NOTE | 2018-05-13 12:51 | PN ---
Date/Time of Note Date/Time of Note DATE: 05/13/18 TIME: 12:41 Assessment/Plan VTE Prophylaxis Risk score (from Ns)>0 risk: 12 SCD applied (from Ns): Yes Pharmacological prophylaxis: heparin Lines/Catheters IV Catheter Type (from Nrs): Saline Lock Assessment/Plan Assessment/Plan 1. Afib with RVR episode - Patient found with Afib with RVR overnight. Started on Amiodarone and converted back to sinus - Cardiology on board and recommendations appreciated. Recommending anticoagulation if episodes persist 2. CAD s/p CABG with triple vessel disease - CT surgery on board and appreciate consultation. Patient doing well and continue current care. Encourage OOB - Patient tolerated CABG without any acute complications. - Cardiology on board and appreciate recommendations. Continue on lasix and BB 3. Hypertension - stable 4. Dyslipidemia - Will continue on statin. 5. Acute shortness of breath - CXR this am shows stable congestion - Currently on antibiotics for pneumonia seen on previous CXR - WBC normalized - Lactic acid normalized 6. Diabetes Mellitus - A1c noted - hold home metformin 7. Diminished appetite - Will try appetite stimulant - Boost with meals 8. Disposition - Monitor for further episodes of afib - Will need better PO intake prior to discharge home Result Diagram: 05/13/1814 05/13/1814 Results 24hrs Laboratory Tests Test 05/12/18 17:22 05/12/18 20:51 05/13/18 05:14 05/13/18 08:07 Bedside Glucose 171 196 138 White Blood Count 8.5 Red Blood Count 3.31 L Hemoglobin 9.8 L Hematocrit 29.7 L Mean Corpuscular 89.7 Volume Mean Corpuscular 29.6 Hemoglobin Mean Corpuscular 33.0 Hemoglobin Concent Red Cell 14.0 Distribution Width Platelet Count 236 # Mean Platelet Volume 10.8 H Immature 0.400 Granulocytes % Neutrophils % 59.5 Lymphocytes % 27.2 Monocytes % 10.2 Eosinophils % 2.0 Basophils % 0.7 Nucleated Red Blood 0.0 Cells % Immature 0.030 Granulocytes # Neutrophils # 5.1 Lymphocytes # 2.3 Monocytes # 0.9 Eosinophils # 0.2 Basophils # 0.1 Nucleated Red Blood 0.0 Cells # Sodium Level 143 Potassium Level 3.7 Chloride Level 99 Carbon Dioxide Level 34 H Anion Gap 10 Blood Urea Nitrogen 17 Creatinine 0.92 Glucose Level 119 Calcium Level 9.3 Phosphorus Level 4.9 Magnesium Level 1.9 Albumin 3.6 Test 05/13/18 12:10 Bedside Glucose 157 Subjective 24 Hr Interval Summary Free Text/Dictation Patient calm this am with no acute overnight episodes of confusion. Patient complaining of pain at incision site and poor appetite but denies any new issues. Had episode of afib overnight but converted back to sinus. Spoke to daughter over the phone this am and requesting to d/c all narcotics and antipsychotics since causing confusion and agitation. Exam/Review of Systems Vital Signs Vitals Vital Signs Date Temp Pulse Resp B/P (MAP) Pulse Ox O2 O2 Flow FiO2 Time Delivery Rate 05/13/18 85 12:39 05/13/18 98.3 20 124/65 95 Nasal 11:20 (84) Cannula 05/13/18 2.0 07:35 05/12/18 27 05:13 Intake and Output 05/12/18 05/12/18 05/13/18 1414:59 22:59 06:59 IntakeIntake Total 350 ml 550 ml OutputOutput Total 1030 ml 850 ml BalanceBalance -680 ml -300 ml Exam General: Patient is laying in bed in no acute distress. answering questions appropriately Neck: Supple Respiratory: Clear to auscultation bilaterally. no wheezing or rhonchi Chest: sternal dressing in place with no discharge or drainage Cardiovascular: S1, S2, regular rate and rhythm, no obvious murmurs Gastrointestinal: soft, non-tender to palpation, no distended bowel sounds heard. Neurological: Moves all extremities spontaneously Skin: No new skin lesions Medications Medications Current Medications Acetaminophen (Tylenol Tab) 650 mg Q6H PRN PO MILD PAIN(1-3)OR ELEVATED TEMP Last administered on 05/12/18at 21:42; Admin Dose 650 MG; Start 05/03/18 at 23:30 IV Flush (NS 3 ml) 3 ml PER PROTOCOL IV ; Start 05/04/18 at 01:00 Ondansetron HCl (Zofran Inj) 4 mg Q6H PRN IV NAUSEA AND/OR VOMITING Last ad ministered on 05/10/18at 19:52; Admin Dose 4 MG; Start 05/04/18 at 01:00 Nitroglycerin (Nitroglycerin (Sl Tab) 0.4 Mg) 1 tab Q5M PRN SL CHEST PAIN; Start 05/04/18 at 01:00 Enoxaparin Sodium (Lovenox) 40 mg DAILY SC Last administered on 05/13/18at 09:02; Admin Dose 40 MG; Start 05/04/18 at 09:00 Albuterol/ Ipratropium (Duoneb) 3 ml Q2H RESP THERAPY PRN HHN SHORTNESS OF BREATH; Start 05/04/18 at 01:00 Miscellaneous Information 1 ea NOTE XX ; Start 05/04/18 at 01:00 Glucose (Glutose) 15 gm Q15M PRN PO DECREASED GLUCOSE; Start 05/04/18 at 01:00 Glucose (Glutose) 22.5 gm Q15M PRN PO DECREASED GLUCOSE; Start 05/04/18 at 01:00 Dextrose (D50w Syringe) 25 ml Q15M PRN IV DECREASED GLUCOSE; Start 05/04/18 at 01:00 Dextrose (D50w Syringe) 50 ml Q15M PRN IV DECREASED GLUCOSE; Start 05/04/18 at 01:00 Glucagon (Glucagen) 1 mg Q15M PRN IM DECREASED GLUCOSE; Start 05/04/18 at 01:00 Glucose (Glutose) 15 gm Q15M PRN BUCCAL DECREASED GLUCOSE; Start 05/04/18 at 01:00 Ondansetron HCl (Zofran Inj) 2 mg ONCE PRN IV NAUSEA AND/OR VOMITING Last administered on 05/09/18at 09:51; Admin Dose 2 MG; Start 05/08/18 at 14:30 Ondansetron HCl (Zofran Inj) 4 mg Q6H PRN IV NAUSEA AND/OR VOMITING; Start 05/08/18 at 14:30 Famotidine (Pepcid Iv) 20 mg BID@08,20 IV Last administered on 05/13/18at 08:52; Admin Dose 20 MG; Start 05/08/18 at 20:00 Acetaminophen (Tylenol Liquid) 650 mg Q3H PRN NGT ELEVATED TEMPERATURE Last administered on 05/11/18at 20:16; Admin Dose 650 MG; Start 05/08/18 at 14:30 Magnesium Sulfate/ Dextrose 100 ml @ 100 mls/hr PRN PRN IVPB PENDING LAB VALUE; Start 05/08/18 at 14:30 Dextrose (D50w Syringe) 25 ml Q15M PRN IV DECREASED GLUCOSE; Start 05/08/18 at 16:00 Atorvastatin Calcium (Lipitor) 40 mg HS PO Last administered on 05/12/18 21:25; Admin Dose 40 MG; Start 05/08/18 at 21:00 Acetaminophen (Tylenol Supp) [address] MILD PAIN(1-3) OR TEMP>38C Last administered on 05/08/18 23:25; Admin Dose 650 MG; Start 05/08/18 at 22:30 Piperacillin Sod/ Tazobactam Sod 100 ml @ 200 mls/hr Q6 IVPB Last administered on 05/13/18 11:39; Admin Dose 200 MLS/HR; Start 05/09/18 at 01:00 Aspirin (Aspirin) 162 mg DAILY PO Last administered on 05/13/18 08:53; Admin Dose 162 MG; Start 05/10/18 at 09:00 Trazodone HCl (Desyrel) 50 mg HS MAY REPEAT X 1 PRN PO insomnia; Start 05/09/18 at 15:00 Insulin Glargine (Lantus) 12 units DAILY@2000 SC Last administered on 05/12/18 21:27; Admin Dose 12 UNITS; Start 05/11/18 at 20:00 Insulin Aspart (Novolog Insulin Pen) NOVOLOG *MILD* ALGORITHM WITH MEALS BEDTIM E SC Last administered on 05/13/18 12:13; Admin Dose 1 UNIT; Start 05/10/18 at 17:35 Metoprolol Tartrate (Lopressor) 50 mg Q8 PO Last administered on 05/13/18 05:51; Admin Dose 50 MG; Start 05/10/18 at 22:00 Furosemide (Lasix) 40 mg BID DIURETICS IV Last administered on 05/13/18 05:50; Admin Dose 40 MG; Start 05/11/18 at 18:00 Hydroxyzine HCl (Atarax) 10 mg Q6H PRN PO ITCHING; Start 05/12/18 at 09:30 Tramadol HCl (Ultram) 50 mg Q6H PRN PO PAIN LEVEL 1-3 Last administered on 05/12/18 10:33; Admin Dose 50 MG; Start 05/12/18 at 09:30 Amiodarone HCl (Cordarone) 200 mg TID PO Last administered on 05/13/18 12:19; Admin Dose 200 MG; Start 05/13/18 at 00:00 Megestrol Acetate (Megace) 40 mg QID PO Last administered on 05/13/18at 12:19; Admin Dose 40 MG; Start 05/13/18 at 10:30 NEIL CEDEÑO MD May 13, 2018 12:50
[2018-05-13] MEDS: ACETAMINOPHEN 325 MG TAB PO PRN ×2 (18:59→20:27)
[2018-05-13] MEDS: ATORVASTATIN 40 MG TAB PO SCH (20:52)
[2018-05-13] MEDS: INSULIN GLARGINE [LANTus] (100 UNITS/ML) SYG SC SCH (21:08)
[2018-05-14] VITALS (12 sets, daily range): BP systolic 109–141; BP diastolic 59–69; PULSE 74–97; RESP 17–24
[2018-05-14] MEDS: PIPER-TAZO 3.375 GM IV (PMX) 100 ML IVPB SCH ×4 (05:26→23:53)
[2018-05-14] MEDS: FUROSEMIDE 40 MG INJ IV SCH (05:26)
[2018-05-14] MEDS: METOPROLOL 50 MG TAB PO SCH ×3 (05:26→22:22)
[2018-05-14] MEDS ORDERED: POTASSIUM CHLORIDE (SR) 20 MEQ TAB PO STA (07:26)
[2018-05-14] MEDS ORDERED: POTASSIUM BICARBONATE 25 MEQ TAB PO ONE (07:30)
[2018-05-14] MEDS: INSULIN ASPART [NOVOLOG] 3 ML PEN SC SCH ×4 (07:45→20:16)
[2018-05-14] MEDS: ASPIRIN 81 MG TAB PO SCH (08:13)
[2018-05-14] MEDS: FAMOTIDINE 20 MG INJ IV SCH ×2 (08:13→20:13)
[2018-05-14] MEDS: MEGESTROL 40 MG TAB PO SCH ×4 (08:13→22:21)
[2018-05-14] MEDS: AMIODARONE 200 MG TAB PO SCH ×3 (08:14→20:13)
[2018-05-14] MEDS: ENOXAPARIN 40 MG/0.4 ML SYG SC SCH (08:34)
--- NOTE | 2018-05-14 08:46 | PN ---
Date/Time of Note Date/Time of Note DATE: 05/14/18 TIME: 08:46 Assessment/Plan VTE Prophylaxis Risk score (from Ns)>0 risk: 3 SCD applied (from Ns): Yes Pharmacological prophylaxis: LMWH Lines/Catheters IV Catheter Type (from Nrs): Saline Lock Assessment/Plan Assessment/Plan 1. Afib with RVR episode - patient with another episode that broke on its own. - Continue on amiodarone and keep electrolytes optimal - Cardiology on board and recommendations appreciated. 2. CAD s/p CABG with triple vessel disease - CT surgery on board and appreciate consultation. Patient doing well and c ontinue current care. Encourage OOB - Patient tolerated CABG without any acute complications. - Cardiology on board and appreciate recommendations. Continue on BB, Given a dose of Bumex given still with pulmonary congestion and b/l effusions 3. Hypertension - stable 4. Dyslipidemia - Will continue on statin. 5. Acute shortness of breath- improving - CXR results noted with persistent pulm congestion and effusions - Currently on antibiotics for pneumonia seen on previous CXR - WBC normalized - Lactic acid normalized 6. Diabetes Mellitus - A1c noted - hold home metformin 7. Diminished appetite - Will try appetite stimulant - Boost with meals 8. Disposition - Given a dose of Bumex this am to help with diuresis given CXR findings of persistent pulm edema and pleural effusions - episode of Vtach and afib overnight and will need to continue to monitor Result Diagram: 05/14/18 0451 05/14/18 0551 Results 24hrs Laboratory Tests Test 05/13/18 12:10 05/13/18 17:00 05/13/18 20:51 05/14/18 04:51 Bedside Glucose 157 144 141 White Blood Count 9.9 Red Blood Count 3.72 L Hemoglobin 10.9 L Hematocrit 33.7 L Mean Corpuscular 90.6 Volume Mean Corpuscular 29.3 Hemoglobin Mean Corpuscular 32.3 Hemoglobin Concent Red Cell 13.8 Distribution Width Platelet Count 274 Mean Platelet Volume 10.7 H Immature 0.600 H Granulocytes % Neutrophils % 62.6 Lymphocytes % 25.5 Monocytes % 9.2 Eosinophils % 1.6 Basophils % 0.5 Nucleated Red Blood 0.0 Cells % Immature 0.060 H Granulocytes # Neutrophils # 6.2 Lymphocytes # 2.5 Monocytes # 0.9 Eosinophils # 0.2 Basophils # 0.1 Nucleated Red Blood 0.0 Cells # Sodium Level 142 Potassium Level 3.2 L Chloride Level 98 Carbon Dioxide Level 34 H Anion Gap 10 Blood Urea Nitrogen 19 Creatinine 1.05 H Glucose Level 130 Calcium Level 9.4 Phosphorus Level 4.6 Magnesium Level 2.3 Albumin 3.8 Test 05/14/18 05:51 05/14/18 07:41 Sodium Level 141 Potassium Level 3.1 L Chloride Level 97 Carbon Dioxide Level 33 H Anion Gap 11 Blood Urea Nitrogen 19 Creatinine 1.03 H Est Glomerular 54 L Filtrat Rate mL/min Glucose Level 134 Calcium Level 9.8 Thyroid Stimulating 3.730 Hormone (TSH) Bedside Glucose 145 Subjective 24 Hr Interval Summary Free Text/Dictation Patient resting comfortably and in no acute distress. had another episode of 3 minutes of afib but converted back to sinus as well as NSVT. Exam/Review of Systems Vital Signs Vitals Vital Signs Date Temp Pulse Resp B/P (MAP) Pulse Ox O2 O2 Flow FiO2 Time Delivery Rate 05/14/18 80 08:04 05/14/18 98.2 22 130/60 93 Room Air 07:37 (83) 05/14/18 2.0 03:24 05/13/18 21 21:30 Intake and Output 05/13/18 05/13/18 05/14/18 1515:00 23:00 07:00 IntakeIntake Total 500 ml 600 ml BalanceBalance 500 ml 600 ml Exam General: Patient is laying in bed in no acute distress. answering questions appropriately Neck: Supple Respiratory: Clear to auscultation bilaterally. no wheezing or rhonchi Chest: sternal dressing in place with no discharge or drainage Cardiovascular: S1, S2, regular rate and rhythm, no obvious murmurs Gastrointestinal: soft, non-tender to palpation, no distended bowel sounds heard. Skin: no new rashes or lesions Medications Medications Current Medications Acetaminophen (Tylenol Tab) 650 mg Q6H PRN PO MILD PAIN(1-3)OR ELEVATED TEMP Last administered on 05/13/18at 18:59; Admin Dose 650 MG; Start 05/03/18 at 23:30 IV Flush (NS 3 ml) 3 ml PER PROTOCOL IV ; Start 05/04/18 at 01:00 Ondansetron HCl (Zofran Inj) 4 mg Q6H PRN IV NAUSEA AND/OR VOMITING Last administered on 05/10/18at 19:52; Admin Dose 4 MG; Start 05/04/18 at 01:00 Nitroglycerin (Nitroglycerin (Sl Tab) 0.4 Mg) 1 tab Q5M PRN SL CHEST PAIN Last administered on 05/14/18at 01:19; Admin Dose 1 TAB; Start 05/04/18 at 01:00 Enoxaparin Sodium (Lovenox) 40 mg DAILY SC Last administered on 05/14/18at 08:34; Admin Dose 40 MG; Start 05/04/18 at 09:00 Albuterol/ Ipratropium (Duoneb) 3 ml Q2H RESP THERAPY PRN HHN SHORTNESS OF BREATH; Start 05/04/18 at 01:00 Miscellaneous Information 1 ea NOTE XX ; Start 05/04/18 at 01:00 Glucose (Glutose) 15 gm Q15M PRN PO DECREASED GLUCOSE; Start 05/04/18 at 01:00 Glucose (Glutose) 22.5 gm Q15M PRN PO DECREASED GLUCOSE; Start 05/04/18 at 01:00 Dextrose (D50w Syringe) 25 ml Q15M PRN IV DECREASED GLUCOSE; Start 05/04/18 at 01:00 Dextrose (D50w Syringe) 50 ml Q15M PRN IV DECREASED GLUCOSE; Start 05/04/18 at 01:00 Glucagon (Glucagen) 1 mg Q15M PRN IM DECREASED GLUCOSE; Start 05/04/18 at 01:00 Glucose (Glutose) 15 gm Q15M PRN BUCCAL DECREASED GLUCOSE; Start 05/04/18 at 01:00 Ondansetron HCl (Zofran Inj) 2 mg ONCE PRN IV NAUSEA AND/OR VOMITING Last administered on 05/09/18at 09:51; Admin Dose 2 MG; Start 05/08/18 at 14:30 Ondansetron HCl (Zofran Inj) 4 mg Q6H PRN IV NAUSEA AND/OR VOMITING; Start 05/08/18 at 14:30 Famotidine (Pepcid Iv) 20 mg BID@08,20 IV Last administered on 05/14/18at 08:13; Admin Dose 20 MG; Start 05/08/18 at 20:00 Acetaminophen (Tylenol Liquid) 650 mg Q3H PRN NGT ELEVATED TEMPERATURE Last administered on 05/11/18at 20:16; Admin Dose 650 MG; Start 05/08/18 at 14:30 Magnesium Sulfate/ Dextrose 100 ml @ 100 mls/hr PRN PRN IVPB PENDING LAB VALUE; Start 05/08/18 at 14:30 Dextrose (D50w Syringe) 25 ml Q15M PRN IV DECREASED GLUCOSE; Start 05/08/18 at 16:00 Atorvastatin Calcium (Lipitor) 40 mg HS PO Last administered on 05/13/18at 20:52; Admin Dose 40 MG; Start 05/08/18 at 21:00 Acetaminophen (Tylenol Supp) 650 mg Q4H PRN AR MILD PAIN(1-3) OR TEMP>38C Last administered on 05/08/18at 23:25; Admin Dose 650 MG; Start 05/08/18 at 22:30 Piperacillin Sod/ Tazobactam Sod 100 ml @ 200 mls/hr Q6 IVPB Last administered on 05/14/18 05:26; Admin Dose 200 MLS/HR; Start 05/09/18 at 01:00 Aspirin (Aspirin) 162 mg DAILY PO Last administered on 05/14/18at 08:13; Admin Dose 162 MG; Start 05/10/18 at 09:00 Trazodone HCl (Desyrel) 50 mg HS MAY REPEAT X 1 PRN PO insomnia; Start 05/09/18 at 15:00 Insulin Glargine (Lantus) 12 units DAILY@2000 SC Last administered on 05/13/18 21:08; Admin Dose 12 UNITS; Start 05/11/18 at 20:00 Insulin Aspart (Novolog Insulin Pen) NOVOLOG *MILD* ALGORITHM WITH MEALS BEDTIME SC Last administered on 05/14/18at 07:45; Admin Dose 1 UNIT; Start 05/10/18 at 17:35 Metoprolol Tartrate (Lopressor) 50 mg Q8 PO Last administered on 05/14/18 05:26; Admin Dose 50 MG; Start 05/10/18 at 22:00 Furosemide (Lasix) 40 mg BID DIURETICS IV Last administered on 05/14/18 05:26; Admin Dose 40 MG; Start 05/11/18 at 18:00 Hydroxyzine HCl (Atarax) 10 mg Q6H PRN PO ITCHING; Start 05/12/18 at 09:30 Tramadol HCl (Ultram) 50 mg Q6H PRN PO PAIN LEVEL 1-3 Last administered on 05/12/18at 10:33; Admin Dose 50 MG; Start 05/12/18 at 09:30 Amiodarone HCl (Cordarone) 200 mg TID PO Last administered on 05/14/18at 08:14; Admin Dose 200 MG; Start 05/13/18 at 00:00 Megestrol Acetate (Megace) 40 mg QID PO Last administered on 05/14/18 08:13; Admin Dose 40 MG; Start 05/13/18 at 10:30 NEIL CEEDÑO MD May 14, 2018 08:46
[2018-05-14] MEDS ORDERED: D5W-0.45 NACL + KCL 20 MEQ 1,000 ML IV SCH (09:00)
[2018-05-14] MEDS: ACETAMINOPHEN 325 MG TAB PO PRN ×2 (10:37→22:22)
[2018-05-14] MEDS ORDERED: POTASSIUM CHLORIDE (SR) 20 MEQ TAB PO ONE (12:30)
--- NOTE | 2018-05-14 12:33 | CONS ---
Date/Time of Note Date/Time of Note DATE: 05/14/18 TIME: 12:29 Assessment/Plan Assessment/Plan Assessment/Plan Severe obstructive coronary artery disease, s/p CABG 05/08/18 MILLER-LAD, SVG-OM, SVG-PDA Preserved Ejection Fraction Diabetes Hypertension Paroxysmal atrial fibrillation, currently sinus rhythm Acute decompensated diastolic congestive heart failure -pt s/p CABG -cont ASA, Statin -Continue beta-vanna and titrate as heart rate and blood pressure permits -On amiodarone and currently in sinus rhythm -Lung examination improving on Lasix but chest x-ray still with pulmonary congestion. Would up titrate diuretic regimen -Encourage incentive spirometry and physical therapy -Maintain potassium above 4.0 and magnesium above 2.0 Result Diagram: 05/14/18 0451 05/14/18 0551 Results 24hrs Laboratory Tests Test 05/13/18 17:00 05/13/18 20:51 05/14/18 04:51 05/14/18 05:51 Bedside Glucose 144 141 White Blood Count 9.9 Red Blood Count 3.72 L Hemoglobin 10.9 L Hematocrit 33.7 L Mean Corpuscular 90.6 Volume Mean Corpuscular 29.3 Hemoglobin Mean Corpuscular 32.3 Hemoglobin Concent Red Cell 13.8 Distribution Width Platelet Count 274 Mean Platelet Volume 10.7 H Immature 0.600 H Granulocytes % Neutrophils % 62.6 Lymphocytes % 25.5 Monocytes % 9.2 Eosinophils % 1.6 Basophils % 0.5 Nucleated Red Blood 0.0 Cells % Immature 0.060 H Granulocytes # Neutrophils # 6.2 Lymphocytes # 2.5 Monocytes # 0.9 Eosinophils # 0.2 Basophils # 0.1 Nucleated Red Blood 0.0 Cells # Sodium Level 142 141 Potassium Level 3.2 L 3.1 L Chloride Level 98 97 Carbon Dioxide Level 34 H 33 H Anion Gap 10 11 Blood Urea Nitrogen 19 19 Creatinine 1.05 H 1.03 H Glucose Level 130 134 Calcium Level 9.4 9.8 Phosphorus Level 4.6 Magnesium Level 2.3 Albumin 3.8 Est Glomerular 54 L Filtrat Rate mL/min Thyroid Stimulating 3.730 Hormone (TSH) Test 05/14/18 07:41 05/14/18 12:10 05/14/18 12:22 Bedside Glucose 145 161 159 Consultation Date/Type/Reason Admit Date/Time May 03, 2018 at 23:07 Initial Consult Date Type of Consult cv 24 HR Interval Summary Free Text/Dictation Shortness of breath continues to improve. Denies palpitations Exam/Review of Systems Vital Signs Vitals Vital Signs Date Temp Pulse Resp B/P (MAP) Pulse Ox O2 O2 Flow FiO2 Time Delivery Rate 05/14/18 87 12:09 05/14/18 97.0 22 136/65 96 Room Air 12:04 (88) 05/14/18 2.0 07:35 05/13/18 21 21:30 Intake and Output 05/13/18 05/13/18 05/14/18 1515:00 23:00 07:00 IntakeIntake Total 500 ml 600 ml BalanceBalance 500 ml 600 ml Exam No apparent distress Constitutional: alert, oriented Head: normocephalic Respiratory: other (Coarse breath sounds bilaterally, no wheezing) Cardiovascular: regular rate and rhythm, other (S1-S2 heard) Gastrointestinal: soft, non-tender, bowel sounds Extremities: edema Medications Medications Current Medications Acetaminophen (Tylenol Tab) 650 mg Q6H PRN PO MILD PAIN(1-3)OR ELEVATED TEMP Last administered on 05/14/18at 10:37; Admin Dose 650 MG; Start 05/03/18 at 23:30 IV Flush (NS 3 ml) 3 ml PER PROTOCOL IV ; Start 05/04/18 at 01:00 Ondansetron HCl (Zofran Inj) 4 mg Q6H PRN IV NAUSEA AND/OR VOMITING Last administered on 05/10/18at 19:52; Admin Dose 4 MG; Start 05/04/18 at 01:00 Nitroglycerin (Nitroglycerin (Sl Tab) 0.4 Mg) 1 tab Q5M PRN SL CHEST PAIN Last administered on 05/14/18at 01:19; Admin Dose 1 TAB; Start 05/04/18 at 01:00 Enoxaparin Sodium (Lovenox) 40 mg DAILY SC Last administered on 05/14/18at 08:34; Admin Dose 40 MG; Start 05/04/18 at 09:00 Albuterol/ Ipratropium (Duoneb) 3 ml Q2H RESP THERAPY PRN HHN SHORTNESS OF BREATH; Start 05/04/18 at 01:00 Miscellaneous Information 1 ea NOTE XX ; Start 05/04/18 at 01:00 Glucose (Glutose) 15 gm Q15M PRN PO DECREASED GLUCOSE; Start 05/04/18 at 01:00 Glucose (Glutose) 22.5 gm Q15M PRN PO DECREASED GLUCOSE; Start 05/04/18 at 01:00 Dextrose (D50w Syringe) 25 ml Q15M PRN IV DECREASED GLUCOSE; Start 05/04/18 at 01:00 Dextrose (D50w Syringe) 50 ml Q15M PRN IV DECREASED GLUCOSE; Start 05/04/18 at 01:00 Glucagon (Glucagen) 1 mg Q15M PRN IM DECREASED GLUCOSE; Start 05/04/18 at 01:00 Glucose (Glutose) 15 gm Q15M PRN BUCCAL DECREASED GLUCOSE; Start 05/04/18 at 01:00 Ondansetron HCl (Zofran Inj) 2 mg ONCE PRN IV NAUSEA AND/OR VOMITING Last administered on 05/09/18at 09:51; Admin Dose 2 MG; Start 05/08/18 at 14:30 Ondansetron HCl (Zofran Inj) 4 mg Q6H PRN IV NAUSEA AND/OR VOMITING; Start 05/08/18 at 14:30 Famotidine (Pepcid Iv) 20 mg BID@08,20 IV Last administered on 05/14/18at 08:13; Admin Dose 20 MG; Start 05/08/18 at 20:00 Acetaminophen (Tylenol Liquid) 650 mg Q3H PRN NGT ELEVATED TEMPERATURE Last administered on 05/11/18at 20:16; Admin Dose 650 MG; Start 05/08/18 at 14:30 Magnesium Sulfate/ Dextrose 100 ml @ 100 mls/hr PRN PRN IVPB PENDING LAB VALUE; Start 05/08/18 at 14:30 Dextrose (D50w Syringe) 25 ml Q15M PRN IV DECREASED GLUCOSE; Start 05/08/18 at 16:00 Atorvastatin Calcium (Lipitor) 40 mg HS PO Last administered on 05/13/18at 20:52; Admin Dose 40 MG; Start 05/08/18 at 21:00 Acetaminophen (Tylenol Supp) 650 mg Q4H PRN OR MILD PAIN(1-3) OR TEMP>38C Last administered on 05/08/18at 23:25; Admin Dose 650 MG; Start 05/08/18 at 22:30 Piperacillin Sod/ Tazobactam Sod 100 ml @ 200 mls/hr Q6 IVPB Last administered on 05/14/18 05:26; Admin Dose 200 MLS/HR; Start 05/09/18 at 01:00 Aspirin (Aspirin) 162 mg DAILY PO Last administered on 05/14/18 08:13; Admin Dose 162 MG; Start 05/10/18 at 09:00 Trazodone HCl (Desyrel) 50 mg HS MAY REPEAT X 1 PRN PO insomnia; Start 05/09/18 at 15:00 Insulin Glargine (Lantus) 12 units DAILY@2000 SC Last administered on 05/13/18 21:08; Admin Dose 12 UNITS; Start 05/11/18 at 20:00 Insulin Aspart (Novolog Insulin Pen) NOVOLOG *MILD* ALGORITHM WITH MEALS BEDTI ME SC Last administered on 05/14/18 07:45; Admin Dose 1 UNIT; Start 05/10/18 at 17:35 Metoprolol Tartrate (Lopressor) 50 mg Q8 PO Last administered on 05/14/18 05:26; Admin Dose 50 MG; Start 05/10/18 at 22:00 Furosemide (Lasix) 40 mg BID DIURETICS IV Last administered on 05/14/18 05:26; Admin Dose 40 MG; Start 05/11/18 at 18:00 Hydroxyzine HCl (Atarax) 10 mg Q6H PRN PO ITCHING; Start 05/12/18 at 09:30 Tramadol HCl (Ultram) 50 mg Q6H PRN PO PAIN LEVEL 1-3 Last administered on 05/12/18at 10:33; Admin Dose 50 MG; Start 05/12/18 at 09:30 Amiodarone HCl (Cordarone) 200 mg TID PO Last administered on 05/14/18 08:14; Admin Dose 200 MG; Start 05/13/18 at 00:00 Megestrol Acetate (Megace) 40 mg QID PO Last administered on 05/14/18 08:13; Admin Dose 40 MG; Start 05/13/18 at 10:30 Potassium Chloride/Dextrose/ Sod Cl 1,000 ml @ 75 mls/hr [id number] IV Last administered on 05/14/18 09:20; Admin Dose 75 MLS/HR; Start 05/14/18 at 09:00; Stop 05/14/18 at 22:19 Vinny Simons DO May 14, 2018 12:33
[2018-05-14] MEDS ORDERED: MAGNESIUM SULFATE 2 GM/50 ML 50 ML IVPB ONE (13:15)
[2018-05-14] MEDS ORDERED: BUMETANIDE 3 MG in DEXTROSE 5% 18 ML IV ONE (13:30)
[2018-05-14] MEDS: LACTOBACILLUS RHAMNOSUS CAP PO SCH (19:43)
[2018-05-14] MEDS: ATORVASTATIN 40 MG TAB PO SCH (20:08)
[2018-05-14] MEDS: INSULIN GLARGINE [LANTus] (100 UNITS/ML) SYG SC SCH (20:23)
[2018-05-15] VITALS (13 sets, daily range): BP systolic 112–142; BP diastolic 59–74; PULSE 74–92; RESP 15–18
[2018-05-15] MEDS: PIPER-TAZO 3.375 GM IV (PMX) 100 ML IVPB SCH ×4 (05:58→23:18)
[2018-05-15] MEDS: METOPROLOL 50 MG TAB PO SCH ×3 (05:58→21:01)
[2018-05-15] MEDS: BUMETANIDE 1 MG INJ IV SCH ×2 (05:58→17:29)
[2018-05-15] MEDS: INSULIN ASPART [NOVOLOG] 3 ML PEN SC SCH ×4 (08:31→20:57)
[2018-05-15] MEDS: FAMOTIDINE 20 MG INJ IV SCH (08:52)
[2018-05-15] MEDS: LACTOBACILLUS RHAMNOSUS CAP PO SCH ×3 (08:52→17:29)
[2018-05-15] MEDS: AMIODARONE 200 MG TAB PO SCH ×3 (08:52→20:49)
[2018-05-15] MEDS: ASPIRIN 81 MG TAB PO SCH (08:52)
[2018-05-15] MEDS: MEGESTROL 40 MG TAB PO SCH ×4 (08:52→20:49)
[2018-05-15] MEDS: ENOXAPARIN 40 MG/0.4 ML SYG SC SCH (08:58)
[2018-05-15] MEDS: ACETAMINOPHEN 325 MG TAB PO PRN (11:33)
--- NOTE | 2018-05-15 15:25 | CONS ---
Date/Time of Note Date/Time of Note DATE: 05/15/18 TIME: 15:24 Assessment/Plan Assessment/Plan Assessment/Plan Severe obstructive coronary artery disease, s/p CABG 05/08/18 MILLER-LAD, SVG-OM, SVG-PDA Preserved Ejection Fraction Diabetes Hypertension Paroxysmal atrial fibrillation, currently sinus rhythm Acute decompensated diastolic congestive heart failure -pt s/p CABG -cont ASA, Statin -Continue beta-vanna and titrate as heart rate and blood pressure permits -On amiodarone and currently in sinus rhythm -Lung examination improving, plan on changing to p.o. Lasix in the next 1-2 days. -Encourage incentive spirometry and physical therapy -Maintain potassium above 4.0 and magnesium above 2.0 Result Diagram: 05/15/1844705/15/18447 Results 24hrs Laboratory Tests Test 05/14/18 17:25 05/14/18 20:15 05/15/18 04:48 05/15/18 08:18 Bedside Glucose 199 179 147 White Blood Count 13.4 #H Red Blood Count 3.83 L Hemoglobin 11.4 L Hematocrit 33.9 L Mean Corpuscular 88.5 Volume Mean Corpuscular 29.8 Hemoglobin Mean Corpuscular 33.6 Hemoglobin Concent Red Cell 14.2 Distribution Width Platelet Count 318 Mean Platelet Volume 10.7 H Immature 0.800 H Granulocytes % Neutrophils % 71.9 Lymphocytes % 18.0 Monocytes % 7.5 Eosinophils % 1.4 Basophils % 0.4 Nucleated Red Blood 0.0 Cells % Immature 0.110 H Granulocytes # Neutrophils # 9.6 H Lymphocytes # 2.4 Monocytes # 1.0 H Eosinophils # 0.2 Basophils # 0.1 Nucleated Red Blood 0.0 Cells # Sodium Level 143 Potassium Level 3.5 Chloride Level 100 Carbon Dioxide Level 29 Anion Gap 14 H Blood Urea Nitrogen 17 Creatinine 1.01 H Glucose Level 149 Calcium Level 9.2 Phosphorus Level 3.6 Magnesium Level 2.9 H Albumin 3.9 Test 05/15/18 12:24 Bedside Glucose 123 Consultation Date/Type/Reason Admit Date/Time May 03, 2018 at 23:07 Initial Consult Date Type of Consult cv 24 HR Interval Summary Free Text/Dictation Continues to feel better. Ambulated in the hallway with much less shortness of breath. Denies palpitations Exam/Review of Systems Vital Signs Vitals Vital Signs Date Temp Pulse Resp B/P (MAP) Pulse Ox O2 O2 Flow FiO2 Time Delivery Rate 05/15/18 83 13:18 05/15/18 98.8 18 119/69 94 Room Air 11:40 (86) 05/15/18 2.0 08:15 05/13/18 21 21:30 Intake and Output 05/14/18 05/14/18 05/15/18 1515:00 23:00 07:00 IntakeIntake Total 420 ml BalanceBalance 420 ml Exam No apparent distress, multiple family members at bedside Constitutional: alert, oriented Head: normocephalic Respiratory: other (Coarse breath sounds bilaterally, no wheezing) Cardiovascular: regular rate and rhythm, other (S1-S2 heard) Gastrointestinal: soft, non-tender, bowel sounds Extremities: edema Medications Medications Current Medications Acetaminophen (Tylenol Tab) 650 mg Q6H PRN PO MILD PAIN(1-3)OR ELEVATED TEMP Last administered on 05/15/18at 11:33; Admin Dose 650 MG; Start 05/03/18 at 23:30 IV Flush (NS 3 ml) 3 ml PER PROTOCOL IV ; Start 05/04/18 at 01:00 Ondansetron HCl (Zofran Inj) 4 mg Q6H PRN IV NAUSEA AND/OR VOMITING Last administered on 05/10/18at 19:52; Admin Dose 4 MG; Start 05/04/18 at 01:00 Nitroglycerin (Nitroglycerin (Sl Tab) 0.4 Mg) 1 tab Q5M PRN SL CHEST PAIN Last administered on 05/14/18at 01:19; Admin Dose 1 TAB; Start 05/04/18 at 01:00 Enoxaparin Sodium (Lovenox) 40 mg DAILY SC Last administered on 05/15/18at 08:58; Admin Dose 40 MG; Start 05/04/18 at 09:00 Albuterol/ Ipratropium (Duoneb) 3 ml Q2H RESP THERAPY PRN HHN SHORTNESS OF BREATH; Start 05/04/18 at 01:00 Miscellaneous Information 1 ea NOTE XX ; Start 05/04/18 at 01:00 Glucose (Glutose) 15 gm Q15M PRN PO DECREASED GLUCOSE; Start 05/04/18 at 01:00 Glucose (Glutose) 22.5 gm Q15M PRN PO DECREASED GLUCOSE; Start 05/04/18 at 01:00 Dextrose (D50w Syringe) 25 ml Q15M PRN IV DECREASED GLUCOSE; Start 05/04/18 at 01:00 Dextrose (D50w Syringe) 50 ml Q15M PRN IV DECREASED GLUCOSE; Start 05/04/18 at 01:00 Glucagon (Glucagen) 1 mg Q15M PRN IM DECREASED GLUCOSE; Start 05/04/18 at 01:00 Glucose (Glutose) 15 gm Q15M PRN BUCCAL DECREASED GLUCOSE; Start 05/04/18 at 01:00 Ondansetron HCl (Zofran Inj) 2 mg ONCE PRN IV NAUSEA AND/OR VOMITING Last administered on 05/09/18at 09:51; Admin Dose 2 MG; Start 05/08/18 at 14:30 Ondansetron HCl (Zofran Inj) 4 mg Q6H PRN IV NAUSEA AND/OR VOMITING; Start 05/08/18 at 14:30 Famotidine (Pepcid Iv) 20 mg BID@08,20 IV Last administered on 05/15/18at 08:52; Admin Dose 20 MG; Start 05/08/18 at 20:00 Acetaminophen (Tylenol Liquid) 650 mg Q3H PRN NGT ELEVATED TEMPERATURE Last administered on 05/11/18at 20:16; Admin Dose 650 MG; Start 05/08/18 at 14:30 Magnesium Sulfate/ Dextrose 100 ml @ 100 mls/hr PRN PRN IVPB PENDING LAB VALUE; Start 05/08/18 at 14:30 Dextrose (D50w Syringe) 25 ml Q15M PRN IV DECREASED GLUCOSE; Start 05/08/18 at 16:00 Atorvastatin Calcium (Lipitor) 40 mg HS PO Last administered on 05/14/18at 20: 08; Admin Dose 40 MG; Start 05/08/18 at 21:00 Acetaminophen (Tylenol Supp) 650 mg Q4H PRN [place] MILD PAIN(1-3) OR TEMP>38C Last administered on 05/08/18at 23:25; Admin Dose 650 MG; Start 05/08/18 at 22:30 Piperacillin Sod/ Tazobactam Sod 100 ml @ 200 mls/hr Q6 IVPB Last administered on 05/15/18at 11:34; Admin Dose 200 MLS/HR; Start 05/09/18 at 01:00 Aspirin (Aspirin) 162 mg DAILY PO Last administered on 05/15/18 08:52; Admin Dose 162 MG; Start 05/10/18 at 09:00 Trazodone HCl (Desyrel) 50 mg HS MAY REPEAT X 1 PRN PO insomnia Last administered on 05/15/18 02:30; Admin Dose 50 MG; Start 05/09/18 at 15:00 Insulin Glargine (Lantus) 12 units DAILY@2000 SC Last administered on 05/14/18 20:23; Admin Dose 12 UNITS; Start 05/11/18 at 20:00 Insulin Aspart (Novolog Insulin Pen) NOVOLOG *MILD* ALGORITHM WITH MEALS BEDTIME SC Last administered on 05/15/18 08:31; Admin Dose 1 UNIT; Start 05/10/18 at 17:35 Metoprolol Tartrate (Lopressor) 50 mg Q8 PO Last administered on 05/15/18 12:28; Admin Dose 50 MG; Start 05/10/18 at 22:00 Hydroxyzine HCl (Atarax) 10 mg Q6H PRN PO ITCHING; Start 05/12/18 at 09:30 Tramadol HCl (Ultram) 50 mg Q6H PRN PO PAIN LEVEL 1-3 Last administered on 05/12/18 10:33; Admin Dose 50 MG; Start 05/12/18 at 09:30 Amiodarone HCl (Cordarone) 200 mg TID PO Last administered on 05/15/18 12:28; Admin Dose 200 MG; Start 05/13/18 at 00:00 Megestrol Acetate (Megace) 40 mg QID PO Last administered on 05/15/18 12:27; Admin Dose 40 MG; Start 05/13/18 at 10:30 Bumetanide (Bumex) 1 mg BID DIURETICS IV Last administered on 05/15/18 05:58; Admin Dose 1 MG; Start 05/15/18 at 06:00 Lactobacillus Acidophilus/ Rhamnosus (Culturelle) 1 cap WITH MEALS PO Last administered on 05/15/18 12:27; Admin Dose 1 CAP; Start 05/14/18 at 19:00 Vinny Simons DO May 15, 2018 15:25
--- NOTE | 2018-05-15 18:38 | PN ---
Date/Time of Note Date/Time of Note DATE: 05/15/18 TIME: 18:38 Objective Vitals Vital Signs Date Temp Pulse Resp B/P (MAP) Pulse Ox O2 O2 Flow FiO2 Time Delivery Rate 05/15/18 88 16:29 05/15/18 97.5 18 130/74 95 Room Air 16:24 (92) 05/15/18 2.0 08:15 05/13/18 21 21:30 Intake and Output 05/14/18 05/14/18 05/15/18 1515:00 23:00 07:00 IntakeIntake Total 420 ml BalanceBalance 420 ml Results Result Diagram: 05/15/188 05/15/188 Medications Medications Current Medications Acetaminophen (Tylenol Tab) 650 mg Q6H PRN PO MILD PAIN(1-3)OR ELEVATED TEMP Last administered on 05/15/18at 11:33; Admin Dose 650 MG; Start 05/03/18 at 23:30 IV Flush (NS 3 ml) 3 ml PER PROTOCOL IV ; Start 05/04/18 at 01:00 Ondansetron HCl (Zofran Inj) 4 mg Q6H PRN IV NAUSEA AND/OR VOMITING Last a dministered on 05/10/18at 19:52; Admin Dose 4 MG; Start 05/04/18 at 01:00 Nitroglycerin (Nitroglycerin (Sl Tab) 0.4 Mg) 1 tab Q5M PRN SL CHEST PAIN Last administered on 05/14/18at 01:19; Admin Dose 1 TAB; Start 05/04/18 at 01:00 Enoxaparin Sodium (Lovenox) 40 mg DAILY SC Last administered on 05/15/18at 08:58; Admin Dose 40 MG; Start 05/04/18 at 09:00 Albuterol/ Ipratropium (Duoneb) 3 ml Q2H RESP THERAPY PRN HHN SHORTNESS OF BREATH; Start 05/04/18 at 01:00 Miscellaneous Information 1 ea NOTE XX ; Start 05/04/18 at 01:00 Glucose (Glutose) 15 gm Q15M PRN PO DECREASED GLUCOSE; Start 05/04/18 at 01:00 Glucose (Glutose) 22.5 gm Q15M PRN PO DECREASED GLUCOSE; Start 05/04/18 at 01:00 Dextrose (D50w Syringe) 25 ml Q15M PRN IV DECREASED GLUCOSE; Start 05/04/18 at 01:00 Dextrose (D50w Syringe) 50 ml Q15M PRN IV DECREASED GLUCOSE; Start 05/04/18 at 01:00 Glucagon (Glucagen) 1 mg Q15M PRN IM DECREASED GLUCOSE; Start 05/04/18 at 01:00 Glucose (Glutose) 15 gm Q15M PRN BUCCAL DECREASED GLUCOSE; Start 05/04/18 at 01:00 Ondansetron HCl (Zofran Inj) 2 mg ONCE PRN IV NAUSEA AND/OR VOMITING Last administered on 05/09/18at 09:51; Admin Dose 2 MG; Start 05/08/18 at 14:30 Ondansetron HCl (Zofran Inj) 4 mg Q6H PRN IV NAUSEA AND/OR VOMITING; Start 05/08/18 at 14:30 Acetaminophen (Tylenol Liquid) 650 mg Q3H PRN NGT ELEVATED TEMPERATURE Last administered on 05/11/18at 20:16; Admin Dose 650 MG; Start 05/08/18 at 14:30 Magnesium Sulfate/ Dextrose 100 ml @ 100 mls/hr PRN PRN IVPB PENDING LAB VALUE; Start 05/08/18 at 14:30 Dextrose (D50w Syringe) 25 ml Q15M PRN IV DECREASED GLUCOSE; Start 05/08/18 at 16:00 Atorvastatin Calcium (Lipitor) 40 mg HS PO Last administered on 05/14/18at 20:08; Admin Dose 40 MG; Start 05/08/18 at 21:00 Acetaminophen (Tylenol Supp) 650 mg Q4H PRN [place] MILD PAIN(1-3) OR TEMP>38C Last administered on 05/08/18at 23:25; Admin Dose 650 MG; Start 05/08/18 at 22:30 Piperacillin Sod/ Tazobactam Sod 100 ml @ 200 mls/hr Q6 IVPB Last administered on 05/15/18at 17:29; Admin Dose 200 MLS/HR; Start 05/09/18 at 01:00 Aspirin (Aspirin) 162 mg DAILY PO Last administered on 05/15/18at 08:52; Admin Dose 162 MG; Start 05/10/18 at 09:00 Trazodone HCl (Desyrel) 50 mg HS MAY REPEAT X 1 PRN PO insomnia Last administered on 05/15/18 02:30; Admin Dose 50 MG; Start 05/09/18 at 15:00 Insulin Glargine (Lantus) 12 units DAILY@2000 SC Last administered on 05/14/18 20:23; Admin Dose 12 UNITS; Start 05/11/18 at 20:00 Insulin Aspart (Novolog Insulin Pen) NOVOLOG *MILD* ALGORITHM WITH MEALS BEDTIME SC Last administered on 05/15/18 17:13; Admin Dose 1 UNIT; Start 05/10/18 at 17:35 Metoprolol Tartrate (Lopressor) 50 mg Q8 PO Last administered on 05/15/18 12:28; Admin Dose 50 MG; Start 05/10/18 at 22:00 Hydroxyzine HCl (Atarax) 10 mg Q6H PRN PO ITCHING; Start 05/12/18 at 09:30 Tramadol HCl (Ultram) 50 mg Q6H PRN PO PAIN LEVEL 1-3 Last administered on 05/12/18 10:33; Admin Dose 50 MG; Start 05/12/18 at 09:30 Amiodarone HCl (Cordarone) 200 mg TID PO Last administered on 05/15/18 12:28; Admin Dose 200 MG; Start 05/13/18 at 00:00 Megestrol Acetate (Megace) 40 mg QID PO Last administered on 05/15/18 17:29; Admin Dose 40 MG; Start 05/13/18 at 10:30 Bumetanide (Bumex) 1 mg BID DIURETICS IV Last administered on 05/15/18 17:29; Admin Dose 1 MG; Start 05/15/18 at 06:00 Lactobacillus Acidophilus/ Rhamnosus (Culturelle) 1 cap WITH MEALS PO Last administered on 05/15/18 17:29; Admin Dose 1 CAP; Start 05/14/18 at 19:00 Famotidine (Pepcid) 20 mg BID PO ; Start 05/15/18 at 21:00 VTE Prophylaxis Risk score (from Nsg)>0 risk: 5 SCD applied (from Nsg): Yes Lines/Catheters IV Catheter Type: Freed in Place: No Assessment/Plan Hospital Course Subjective Patient doing well Objective Physical exam General: Patient is laying in bed and answers questions appropriately Mentation: Patient is alert and oriented 4, Head: Normocephalic atraumatic Eyes: EOMI, pupils reactive to light Neck: Supple, nontender, midline Respiratory: Coarse to auscultation bilaterally Cardiovascular: regular rate, no obvious murmurs Gastrointestinal: non-tender to palpation, bowel sounds heard. Neurological: Moves all extremities spontaneously Skin: Surgical site, midline, bandaged Assessment/Plan 1. Afib with RVR episode - patient with another episode that broke on its own. - Continue medications per cardiology - Cardiology on board and recommendations appreciated. 2. CAD s/p CABG with triple vessel disease - CT surgery on board and appreciate consultation. Patient doing well and continue current care. Encourage OOB - Patient tolerated CABG without any acute complications. - Cardiology on board and appreciate recommendations. Continue on BB, cont bumex per cardiology 3. Hypertension - stable 4. Dyslipidemia - Will continue on statin. 5. Acute shortness of breath- improving - Currently on antibiotics for pneumonia seen on previous CXR - WBC normalized - Lactic acid normalized - ID consulted 6. Diabetes Mellitus - A1c noted - hold home metformin 7. Diminished appetite - Will try appetite stimulant - Boost with meals 8. Disposition -titrate off IV bumex as able -plan on DC home with HHPT JOSE ELIAS ANGELO May 15, 2018 18:38
--- NOTE | 2018-05-15 20:18 | CONS ---
DATE OF ADMISSION: 05/03/2018 DATE OF CONSULTATION: 05/15/2018 REASON FOR CONSULTATION: Antibiotic management. HISTORY OF PRESENT ILLNESS: Mellissa Fortune is a 62-year-old male with numerous problems who came in and underwent cardiac surgery. His problems include: 1. Coronary artery disease. 2. Hypertension. 3. Dyslipidemia. The patient underwent #4 coronary artery bypass grafting with triple vessel disease. He tolerated th e procedure without any complications. He was intubated. On admission, his white count was 7.7, H a nd H of 11 and 33.3, platelet count 212,000. BUN and creatinine 15/0.61. Random glucose was 164. T he patient had 60 polys and 31 lymphocytes. HOSPITAL COURSE: On the , white count was 10.7. He had a fever and he was cultured. He has his ____ line and [place]ene catheter discontinued on the . His chest x-ray showed postoperative mckeon es with sternotomy wires. There was a [place]Carlene catheter from a right internal jugular approach, chan ateral chest tubes, mediastinal drain in place. No evidence of pneumonia, small bilateral pleural ef fusions, mild interstitial edema. On the , interval removal of chest tubes and catheters, seen by Dr. Couch, white count was 12.6, hospital course was reasonable. On the , patient was start ed on Lasix. Currently, his white count is 13.4, H and H 11.4 and 33.9, platelet count 318,000, BUN and creatinine 17/1.01. The patient is currently on Zosyn. The patient was subjectively doing well. The patient had an episode of atrial fibrillation with rapid ventricular response. PAST MEDICAL HISTORY: Operations as outlined. FAMILY HISTORY: Noncontributory. SOCIAL HISTORY: He does not smoke, drink or abuse drugs. ALLERGIES: NONE TO PENICILLIN, SULFA OR FOODS. MEDICATIONS: Per chart. REVIEW OF SYSTEMS: Noncontributory. PHYSICAL EXAMINATION: GENERAL: The patient is lying in bed in no acute distress. He is alert and oriented x4. VITAL SIGNS: Stable. He is afebrile. SKIN: Without generalized rash. HEENT: Within normal limits. NECK: Supple. LYMPH NODES: None palpable. THORAX: He has a midline bandage. CHEST: Decreased breath sounds at the bases. HEART: Without murmur or gallop. ABDOMEN: Soft, nontender, without organosplenomegaly or masses. EXTREMITIES: Without cyanosis, clubbing or edema. RECTAL AND GENITAL: Deferred. NEUROLOGIC: No focal neurological abnormalities. MICROBIOLOGY: Blood cultures are negative. MRSA screen is negative. LABORATORY DATA: White count is 13.4, which is elevated, H and H 11.4 and 33.9, platelet count 318,0 00. Urine just showed trace leukocyte esterase, 21 white cells per high-power field from the initial urine on the . The patient is currently on Zosyn. We will continue him on current therapy. IMAGING DATA: His chest x-ray from the shows bibasilar atelectasis and/or mild pleural effusion s, slightly improved on the right, stable mild cardiomegaly and aortic atherosclerosis. IMPRESSION AND PLAN: The patient currently does not show any evidence of infection aside from his le ukocytosis. I would suggest stopping his antibiotics tomorrow and observing off antibiotics. I will dictate my findings to the hospitalist and to Dr. Couch and Dr. Simons. Dictated By: TANNER HALE MD, JD/NTS Conf#: [id number] DID#: [id number] CC: JOSE ELIAS ANGELO MD;*End*
[2018-05-15] MEDS: ATORVASTATIN 40 MG TAB PO SCH (20:49)
[2018-05-15] MEDS: FAMOTIDINE 20 MG TAB PO SCH (20:49)
[2018-05-15] MEDS: INSULIN GLARGINE [LANTus] (100 UNITS/ML) SYG SC SCH (20:57)
[2018-05-15] MEDS ORDERED: GUAIFENESIN 20 MG/ML 5ML CUP PO PRN (23:00)
[2018-05-16] VITALS (11 sets, daily range): BP systolic 132–146; BP diastolic 62–70; PULSE 75–95; RESP 18–19
[2018-05-16] MEDS: ACETAMINOPHEN 325 MG TAB PO PRN (00:02)
[2018-05-16] MEDS: METOPROLOL 50 MG TAB PO SCH ×3 (05:33→20:55)
[2018-05-16] MEDS: BUMETANIDE 1 MG INJ IV SCH (05:33)
[2018-05-16] MEDS: PIPER-TAZO 3.375 GM IV (PMX) 100 ML IVPB SCH ×2 (05:33→11:35)
[2018-05-16] MEDS ORDERED: POTASSIUM CHLORIDE (SR) 20 MEQ TAB PO STA (06:55)
[2018-05-16] MEDS: INSULIN ASPART [NOVOLOG] 3 ML PEN SC SCH ×4 (08:00→20:55)
[2018-05-16] MEDS: LACTOBACILLUS RHAMNOSUS CAP PO SCH ×3 (08:54→17:18)
[2018-05-16] MEDS: ASPIRIN 81 MG TAB PO SCH (08:54)
[2018-05-16] MEDS: FAMOTIDINE 20 MG TAB PO SCH ×2 (08:54→20:53)
[2018-05-16] MEDS: MEGESTROL 40 MG TAB PO SCH ×4 (08:55→20:53)
[2018-05-16] MEDS: AMIODARONE 200 MG TAB PO SCH ×2 (08:55→13:40)
[2018-05-16] MEDS: ENOXAPARIN 40 MG/0.4 ML SYG SC SCH (09:01)
--- NOTE | 2018-05-16 14:08 | PN ---
Date/Time of Note Date/Time of Note DATE: 05/16/18 TIME: 14:08 Objective Vitals Vital Signs Date Temp Pulse Resp B/P (MAP) Pulse Ox O2 O2 Flow FiO2 Time Delivery Rate 05/16/18 82 12:38 05/16/18 98.4 18 145/67 98 11:22 (93) 05/16/18 Nasal 2.0 08:28 Cannula 05/13/18 21 21:30 Intake and Output 05/15/18 05/15/18 05/16/18 1515:00 23:00 07:00 IntakeIntake Total 700 ml 800 ml 900 ml BalanceBalance 700 ml 800 ml 900 ml Results Result Diagram: 05/16/18 0505 05/16/18 0505 Medications Medications Current Medications Acetaminophen (Tylenol Tab) 650 mg Q6H PRN PO MILD PAIN(1-3)OR ELEVATED TEMP Last administered on 05/16/18at 00:02; Admin Dose 650 MG; Start 05/03/18 at 23:30 IV Flush (NS 3 ml) 3 ml PER PROTOCOL IV ; Start 05/04/18 at 01:00 Ondansetron HCl (Zofran Inj) 4 mg Q6H PRN IV NAUSEA AND/OR VOMITING Last administered on 05/10/18at 19:52; Admin Dose 4 MG; Start 05/04/18 at 01:00 Nitroglycerin (Nitroglycerin (Sl Tab) 0.4 Mg) 1 tab Q5M PRN SL CHEST PAIN Last administered on 05/14/18at 01:19; Admin Dose 1 TAB; Start 05/04/18 at 01:00 Enoxaparin Sodium (Lovenox) 40 mg DAILY SC Last administered on 05/16/18at 09:01; Admin Dose 40 MG; Start 05/04/18 at 09:00 Albuterol/ Ipratropium (Duoneb) 3 ml Q2H RESP THERAPY PRN HHN SHORTNESS OF BREATH; Start 05/04/18 at 01:00 Miscellaneous Information 1 ea NOTE XX ; Start 05/04/18 at 01:00 Glucose (Glutose) 15 gm Q15M PRN PO DECREASED GLUCOSE; Start 05/04/18 at 01:00 Glucose (Glutose) 22.5 gm Q15M PRN PO DECREASED GLUCOSE; Start 05/04/18 at 01:00 Dextrose (D50w Syringe) 25 ml Q15M PRN IV DECREASED GLUCOSE; Start 05/04/18 at 01:00 Dextrose (D50w Syringe) 50 ml Q15M PRN IV DECREASED GLUCOSE; Start 05/04/18 at 01:00 Glucagon (Glucagen) 1 mg Q15M PRN IM DECREASED GLUCOSE; Start 05/04/18 at 01:00 Glucose (Glutose) 15 gm Q15M PRN BUCCAL DECREASED GLUCOSE; Start 05/04/18 at 01:00 Ondansetron HCl (Zofran Inj) 2 mg ONCE PRN IV NAUSEA AND/OR VOMITING Last administered on 05/09/18at 09:51; Admin Dose 2 MG; Start 05/08/18 at 14:30 Ondansetron HCl (Zofran Inj) 4 mg Q6H PRN IV NAUSEA AND/OR VOMITING; Start 05/08/18 at 14:30 Acetaminophen (Tylenol Liquid) 650 mg Q3H PRN NGT ELEVATED TEMPERATURE Last administered on 05/11/18at 20:16; Admin Dose 650 MG; Start 05/08/18 at 14:30 Magnesium Sulfate/ Dextrose 100 ml @ 100 mls/hr PRN PRN IVPB PENDING LAB VALUE; Start 05/08/18 at 14:30 Dextrose (D50w Syringe) 25 ml Q15M PRN IV DECREASED GLUCOSE; Start 05/08/18 at 16:00 Atorvastatin Calcium (Lipitor) 40 mg HS PO Last administered on 05/15/18at 20: 49; Admin Dose 40 MG; Start 05/08/18 at 21:00 Acetaminophen (Tylenol Supp) 650 mg Q4H PRN [place] MILD PAIN(1-3) OR TEMP>38C Last administered on 05/08/18at 23:25; Admin Dose 650 MG; Start 05/08/18 at 22:30 Piperacillin Sod/ Tazobactam Sod 100 ml @ 200 mls/hr Q6 IVPB Last administered on 05/16/18at 11:35; Admin Dose 200 MLS/HR; Start 05/09/18 at 01:00 Aspirin (Aspirin) 162 mg DAILY PO Last administered on 05/16/18at 08:54; Admin Dose 162 MG; Start 05/10/18 at 09:00 Trazodone HCl (Desyrel) 50 mg HS MAY REPEAT X 1 PRN PO insomnia Last administered on 05/15/18 02:30; Admin Dose 50 MG; Start 05/09/18 at 15:00 Insulin Glargine (Lantus) 12 units DAILY@2000 SC Last administered on 05/15/18 20:57; Admin Dose 12 UNITS; Start 05/11/18 at 20:00 Insulin Aspart (Novolog Insulin Pen) NOVOLOG *MILD* ALGORITHM WITH MEALS BEDTIME SC Last administered on 05/16/18 08:00; Admin Dose 1 UNIT; Start 05/10/18 at 17:35 Metoprolol Tartrate (Lopressor) 50 mg Q8 PO Last administered on 05/16/18 13:40; Admin Dose 50 MG; Start 05/10/18 at 22:00 Hydroxyzine HCl (Atarax) 10 mg Q6H PRN PO ITCHING; Start 05/12/18 at 09:30 Tramadol HCl (Ultram) 50 mg Q6H PRN PO PAIN LEVEL 1-3 Last administered on 05/12/18 10:33; Admin Dose 50 MG; Start 05/12/18 at 09:30 Amiodarone HCl (Cordarone) 200 mg TID PO Last administered on 05/16/18 13:40; Admin Dose 200 MG; Start 05/13/18 at 00:00 Megestrol Acetate (Megace) 40 mg QID PO Last administered on 05/16/18 13:40; Admin Dose 40 MG; Start 05/13/18 at 10:30 Bumetanide (Bumex) 1 mg BID DIURETICS IV Last administered on 05/16/18 05:33; Admin Dose 1 MG; Start 05/15/18 at 06:00 Lactobacillus Acidophilus/ Rhamnosus (Culturelle) 1 cap WITH MEALS PO Last administered on 05/16/18 11:35; Admin Dose 1 CAP; Start 05/14/18 at 19:00 Famotidine (Pepcid) 20 mg BID PO Last administered on 05/16/18 08:54; Admin Dose 20 MG; Start 05/15/18 at 21:00 Guaifenesin (Robitussin Liquid Cup) 100 mg Q4H PRN PO COUGH Last administered on 05/15/18 22:55; Admin Dose 100 MG; Start 05/15/18 at 23:00 VTE Prophylaxis Risk score (from Nsg)>0 risk: 5 SCD applied (from Nsg): Yes Lines/Catheters IV Catheter Type: Freed in Place: No Assessment/Plan Hospital Course Subjective Patient doing well Objective Physical exam General: Patient is laying in bed and answers questions appropriately Mentation: Patient is alert and oriented 4, Head: Normocephalic atraumatic Eyes: EOMI, pupils reactive to light Neck: Supple, nontender, midline Respiratory: Coarse to auscultation bilaterally Cardiovascular: regular rate, no obvious murmurs Gastrointestinal: non-tender to palpation, bowel sounds heard. Neurological: Moves all extremities spontaneously Skin: Surgical site, midline, bandaged Assessment/Plan 1. Afib with RVR episode - patient with another episode that broke on its own. - Continue medications per cardiology - Cardiology on board and recommendations appreciated. 2. CAD s/p CABG with triple vessel disease - CT surgery on board and appreciate consultation. Patient doing well and continue current care. Encourage OOB - Patient tolerated CABG without any acute complications. - Cardiology on board and appreciate recommendations. Continue on BB, cont bumex per cardiology 3. Hypertension - stable 4. Dyslipidemia - Will continue on statin. 5. Acute shortness of breath- improving - Currently on antibiotics for pneumonia seen on previous CXR - WBC normalized - Lactic acid normalized - ID consulted 6. Diabetes Mellitus - A1c noted - hold home metformin 7. Diminished appetite - Will try appetite stimulant - Boost with meals 8. Disposition -changed to po bumex today -plan on DC home with HHPT JOSE ELIAS ANGELO May 16, 2018 14:08
--- NOTE | 2018-05-16 15:37 | CONS ---
Date/Time of Note Date/Time of Note DATE: 05/16/18 TIME: 15:37 Assessment/Plan Assessment/Plan Hospital Course 1230 Patient is alert eating lunch looks comfortable wants to go home, no fevers overnight WBC 11.7 platelets 344 no shift no bands BUN 19 creatinine 1 Antimicrobials: Zosyn Diagnostics: Chest x-ray yesterday revealed bibasilar atelectasis and/or mild pleural effusion slightly improved on the right Indwelling: Freed Physical examination: Fragile well-developed elderly woman who is alert in no distress. Head atraumatic normocephalic sclera nonicteric. Vehicle mucosa dry neck is supple. Chest rise symmetrical breath sounds with scattered crackles to bases. Heart: S1-S2. Abdomen soft bowel sounds present. Extremities without cyanosis. Skin: Midsternal dressing clean and dry and intact Assessment: 1. Coronary artery disease, status post CABG 2. Atrial fibrillation status post RVR on admission 3. Fluid overload 4. S/p pneumonia 5. Diabetes 6. Hypertension Plan: Patient remained stable no fevers overnight we will discontinue antibiotics and observe, follow cardiology recommendations Result Diagram: 05/16/18 0505 05/16/18 0505 Results 24hrs Laboratory Tests Test 05/15/18 17:07 05/15/18 20:52 05/16/18 05:05 05/16/18 07:56 Bedside Glucose 154 184 167 White Blood Count 11.7 H Red Blood Count 3.80 L Hemoglobin 11.2 L Hematocrit 34.1 L Mean Corpuscular 89.7 Volume Mean Corpuscular 29.5 Hemoglobin Mean Corpuscular 32.8 Hemoglobin Concent Red Cell 14.2 Distribution Width Platelet Count 344 Mean Platelet Volume 10.6 H Immature 0.600 H Granulocytes % Neutrophils % 63.8 Lymphocytes % 25.3 Monocytes % 8.2 Eosinophils % 1.7 Basophils % 0.4 Nucleated Red Blood 0.0 Cells % Immature 0.070 H Granulocytes # Neutrophils # 7.5 Lymphocytes # 3.0 H Monocytes # 1.0 H Eosinophils # 0.2 Basophils # 0.1 Nucleated Red Blood 0.0 Cells # Sodium Level 141 Potassium Level 3.3 L Chloride Level 103 Carbon Dioxide Level 27 Anion Gap 11 Blood Urea Nitrogen 19 Creatinine 1.00 Glucose Level 137 Calcium Level 9.1 Phosphorus Level 4.0 Magnesium Level 2.5 Albumin 3.9 Test 05/16/18 11:32 Bedside Glucose 123 Consultation Date/Type/Reason Admit Date/Time May 03, 2018 at 23:07 Initial Consult Date Type of Consult ID Exam/Review of Systems Vital Signs Vitals Vital Signs Date Temp Pulse Resp B/P (MAP) Pulse Ox O2 O2 Flow FiO2 Time Delivery Rate 05/16/18 82 12:38 05/16/18 98.4 18 145/67 98 11:22 (93) 05/16/18 Nasal 2.0 08:28 Cannula 05/13/18 21 21:30 Intake and Output 05/15/18 05/15/18 05/16/18 1515:00 23:00 07:00 IntakeIntake Total 700 ml 800 ml 900 ml BalanceBalance 700 ml 800 ml 900 ml Medications Medications Current Medications Acetaminophen (Tylenol Tab) 650 mg Q6H PRN PO MILD PAIN(1-3)OR ELEVATED TEMP Last administered on 05/16/18at 00:02; Admin Dose 650 MG; Start 05/03/18 at 23:30 IV Flush (NS 3 ml) 3 ml PER PROTOCOL IV ; Start 05/04/18 at 01:00 Ondansetron HCl (Zofran Inj) 4 mg Q6H PRN IV NAUSEA AND/OR VOMITING Last administered on 05/10/18at 19:52; Admin Dose 4 MG; Start 05/04/18 at 01:00 Nitroglycerin (Nitroglycerin (Sl Tab) 0.4 Mg) 1 tab Q5M PRN SL CHEST PAIN Last administered on 05/14/18at 01:19; Admin Dose 1 TAB; Start 05/04/18 at 01:00 Enoxaparin Sodium (Lovenox) 40 mg DAILY SC Last administered on 05/16/18at 09:01; Admin Dose 40 MG; Start 05/04/18 at 09:00 Albuterol/ Ipratropium (Duoneb) 3 ml Q2H RESP THERAPY PRN HHN SHORTNESS OF BREATH; Start 05/04/18 at 01:00 Miscellaneous Information 1 ea NOTE XX ; Start 05/04/18 at 01:00 Glucose (Glutose) 15 gm Q15M PRN PO DECREASED GLUCOSE; Start 05/04/18 at 01:00 Glucose (Glutose) 22.5 gm Q15M PRN PO DECREASED GLUCOSE; Start 05/04/18 at 01:00 Dextrose (D50w Syringe) 25 ml Q15M PRN IV DECREASED GLUCOSE; Start 05/04/18 at 01:00 Dextrose (D50w Syringe) 50 ml Q15M PRN IV DECREASED GLUCOSE; Start 05/04/18 at 01:00 Glucagon (Glucagen) 1 mg Q15M PRN IM DECREASED GLUCOSE; Start 05/04/18 at 01:00 Glucose (Glutose) 15 gm Q15M PRN BUCCAL DECREASED GLUCOSE; Start 05/04/18 at 01:00 Ondansetron HCl (Zofran Inj) 2 mg ONCE PRN IV NAUSEA AND/OR VOMITING Last admini stered on 05/09/18at 09:51; Admin Dose 2 MG; Start 05/08/18 at 14:30 Ondansetron HCl (Zofran Inj) 4 mg Q6H PRN IV NAUSEA AND/OR VOMITING; Start 05/08/18 at 14:30 Acetaminophen (Tylenol Liquid) 650 mg Q3H PRN NGT ELEVATED TEMPERATURE Last administered on 05/11/18at 20:16; Admin Dose 650 MG; Start 05/08/18 at 14:30 Magnesium Sulfate/ Dextrose 100 ml @ 100 mls/hr PRN PRN IVPB PENDING LAB VALUE; Start 05/08/18 at 14:30 Dextrose (D50w Syringe) 25 ml Q15M PRN IV DECREASED GLUCOSE; Start 05/08/18 at 16:00 Atorvastatin Calcium (Lipitor) 40 mg HS PO Last administered on 05/15/18at 20:49; Admin Dose 40 MG; Start 05/08/18 at 21:00 Acetaminophen (Tylenol Supp) 650 mg Q4H PRN IN MILD PAIN(1-3) OR TEMP>38C Last administered on 05/08/18at 23:25; Admin Dose 650 MG; Start 05/08/18 at 22:30 Piperacillin Sod/ Tazobactam Sod 100 ml @ 200 mls/hr Q6 IVPB Last administered on 05/16/18at 11:35; Admin Dose 200 MLS/HR; Start 05/09/18 at 01:00 Aspirin (Aspirin) 162 mg DAILY PO Last administered on 05/16/18at 08:54; Admin Dose 162 MG; Start 05/10/18 at 09:00 Trazodone HCl (Desyrel) 50 mg HS MAY REPEAT X 1 PRN PO insomnia Last administered on 05/15/18 02:30; Admin Dose 50 MG; Start 05/09/18 at 15:00 Insulin Glargine (Lantus) 12 units DAILY@2000 SC Last administered on 05/15/18 20:57; Admin Dose 12 UNITS; Start 05/11/18 at 20:00 Insulin Aspart (Novolog Insulin Pen) NOVOLOG *MILD* ALGORITHM WITH MEALS BEDTIME SC Last administered on 05/16/18 08:00; Admin Dose 1 UNIT; Start 05/10/18 at 17:35 Metoprolol Tartrate (Lopressor) 50 mg Q8 PO Last administered on 05/16/18 13:40; Admin Dose 50 MG; Start 05/10/18 at 22:00 Hydroxyzine HCl (Atarax) 10 mg Q6H PRN PO ITCHING; Start 05/12/18 at 09:30 Tramadol HCl (Ultram) 50 mg Q6H PRN PO PAIN LEVEL 1-3 Last administered on 05/12/18 10:33; Admin Dose 50 MG; Start 05/12/18 at 09:30 Amiodarone HCl (Cordarone) 200 mg TID PO Last administered on 05/16/18 13:40; Admin Dose 200 MG; Start 05/13/18 at 00:00 Megestrol Acetate (Megace) 40 mg QID PO Last administered on 05/16/18 13:40; Admin Dose 40 MG; Start 05/13/18 at 10:30 Lactobacillus Acidophilus/ Rhamnosus (Culturelle) 1 cap WITH MEALS PO Last administered on 05/16/18 11:35; Admin Dose 1 CAP; Start 05/14/18 at 19:00 Famotidine (Pepcid) 20 mg BID PO Last administered on 05/16/18 08:54; Admin Dose 20 MG; Start 05/15/18 at 21:00 Guaifenesin (Robitussin Liquid Cup) 100 mg Q4H PRN PO COUGH Last administered on 05/15/18 22:55; Admin Dose 100 MG; Start 05/15/18 at 23:00 Bumetanide (Bumex) 1 mg BID DIURETICS PO ; Start 05/16/18 at 18:00 NU FOX NP May 16, 2018 15:37
[2018-05-16] MEDS: BUMETANIDE 1 MG TAB PO SCH (17:18)
--- NOTE | 2018-05-16 20:01 | CONS ---
Date/Time of Note Date/Time of Note DATE: 05/16/18 TIME: 20:00 Assessment/Plan Assessment/Plan Assessment/Plan Severe obstructive coronary artery disease, s/p CABG 05/08/18 MILLER-LAD, SVG-OM, SVG-PDA Preserved Ejection Fraction Diabetes Hypertension Paroxysmal atrial fibrillation, currently sinus rhythm Acute decompensated diastolic congestive heart failure -pt s/p CABG -cont ASA, Statin -Adjust beta-vanna to twice daily dosing in preparation of discharge -Remains in sinus rhythm, decrease amiodarone to daily -Lung examination improving, currently on p.o. Bumex -Encourage incentive spirometry and physical therapy -Maintain potassium above 4.0 and magnesium above 2.0 -If continues to improve, DC planning next 24 hours Result Diagram: 05/16/18 0505 05/16/18 0505 Results 24hrs Laboratory Tests Test 05/15/18 20:52 05/16/18 05:05 05/16/18 07:56 05/16/18 11:32 Bedside Glucose 184 167 123 White Blood Count 11.7 H Red Blood Count 3.80 L Hemoglobin 11.2 L Hematocrit 34.1 L Mean Corpuscular 89.7 Volume Mean Corpuscular 29.5 Hemoglobin Mean Corpuscular 32.8 Hemoglobin Concent Red Cell 14.2 Distribution Width Platelet Count 344 Mean Platelet Volume 10.6 H Immature 0.600 H Granulocytes % Neutrophils % 63.8 Lymphocytes % 25.3 Monocytes % 8.2 Eosinophils % 1.7 Basophils % 0.4 Nucleated Red Blood 0.0 Cells % Immature 0.070 H Granulocytes # Neutrophils # 7.5 Lymphocytes # 3.0 H Monocytes # 1.0 H Eosinophils # 0.2 Basophils # 0.1 Nucleated Red Blood 0.0 Cells # Sodium Level 141 Potassium Level 3.3 L Chloride Level 103 Carbon Dioxide Level 27 Anion Gap 11 Blood Urea Nitrogen 19 Creatinine 1.00 Glucose Level 137 Calcium Level 9.1 Phosphorus Level 4.0 Magnesium Level 2.5 Albumin 3.9 Test 05/16/18 17:17 Bedside Glucose 149 Consultation Date/Type/Reason Admit Date/Time May 03, 2018 at 23:07 Initial Consult Date Type of Consult cv 24 HR Interval Summary Free Text/Dictation Less shortness of breath with ambulation. Chest wall pain improving. Denies dizziness or palpitations Exam/Review of Systems Vital Signs Vitals Vital Signs Date Temp Pulse Resp B/P (MAP) Pulse Ox O2 O2 Flow FiO2 Time Delivery Rate 05/16/18 82 16:09 05/16/18 97.3 18 145/68 96 15:57 (93) 05/16/18 Nasal 2.0 08:28 Cannula 05/13/18 21 21:30 Intake and Output 05/15/18 05/15/18 05/16/18 1414:59 22:59 06:59 IntakeIntake Total 700 ml 800 ml 900 ml BalanceBalance 700 ml 800 ml 900 ml Exam No apparent distress, family bedside Constitutional: alert, oriented Head: normocephalic Respiratory: other (Coarse breath sounds bilaterally, no wheezing) Cardiovascular: regular rate and rhythm, other (S1-S2 heard) Gastrointestinal: soft, non-tender, bowel sounds Extremities: other (Trace) Medications Medications Current Medications Acetaminophen (Tylenol Tab) 650 mg Q6H PRN PO MILD PAIN(1-3)OR ELEVATED TEMP Last administered on 05/16/18at 00:02; Admin Dose 650 MG; Start 05/03/18 at 23:30 IV Flush (NS 3 ml) 3 ml PER PROTOCOL IV ; Start 05/04/18 at 01:00 Ondansetron HCl (Zofran Inj) 4 mg Q6H PRN IV NAUSEA AND/OR VOMITING Last administered on 05/10/18at 19:52; Admin Dose 4 MG; Start 05/04/18 at 01:00 Nitroglycerin (Nitroglycerin (Sl Tab) 0.4 Mg) 1 tab Q5M PRN SL CHEST PAIN Last administered on 05/14/18at 01:19; Admin Dose 1 TAB; Start 05/04/18 at 01:00 Enoxaparin Sodium (Lovenox) 40 mg DAILY SC Last administered on 05/16/18at 09:01; Admin Dose 40 MG; Start 05/04/18 at 09:00 Albuterol/ Ipratropium (Duoneb) 3 ml Q2H RESP THERAPY PRN HHN SHORTNESS OF BREATH; Start 05/04/18 at 01:00 Miscellaneous Information 1 ea NOTE XX ; Start 05/04/18 at 01:00 Glucose (Glutose) 15 gm Q15M PRN PO DECREASED GLUCOSE; Start 05/04/18 at 01:00 Glucose (Glutose) 22.5 gm Q15M PRN PO DECREASED GLUCOSE; Start 05/04/18 at 01:00 Dextrose (D50w Syringe) 25 ml Q15M PRN IV DECREASED GLUCOSE; Start 05/04/18 at 01:00 Dextrose (D50w Syringe) 50 ml Q15M PRN IV DECREASED GLUCOSE; Start 05/04/18 at 01:00 Glucagon (Glucagen) 1 mg Q15M PRN IM DECREASED GLUCOSE; Start 05/04/18 at 01:00 Glucose (Glutose) 15 gm Q15M PRN BUCCAL DECREASED GLUCOSE; Start 05/04/18 at 01:00 Ondansetron HCl (Zofran Inj) 2 mg ONCE PRN IV NAUSEA AND/OR VOMITING Last administered on 05/09/18at 09:51; Admin Dose 2 MG; Start 05/08/18 at 14:30 Ondansetron HCl (Zofran Inj) 4 mg Q6H PRN IV NAUSEA AND/OR VOMITING; Start 05/08/18 at 14:30 Acetaminophen (Tylenol Liquid) 650 mg Q3H PRN NGT ELEVATED TEMPERATURE Last administered on 05/11/18at 20:16; Admin Dose 650 MG; Start 05/08/18 at 14:30 Magnesium Sulfate/ Dextrose 100 ml @ 100 mls/hr PRN PRN IVPB PENDING LAB VALUE; Start 05/08/18 at 14:30 Dextrose (D50w Syringe) 25 ml Q15M PRN IV DECREASED GLUCOSE; Start 05/08/18 at 16:00 Atorvastatin Calcium (Lipitor) 40 mg HS PO Last administered on 05/15/18at 20:49; Admin Dose 40 MG; Start 05/08/18 at 21:00 Acetaminophen (Tylenol Supp) [address] MILD PAIN(1-3) OR TEMP>38C Last administered on 05/08/18at 23:25; Admin Dose 650 MG; Start 05/08/18 at 22:30 Aspirin (Aspirin) 162 mg DAILY PO Last administered on 05/16/18at 08:54; Admin Dose 162 MG; Start 05/10/18 at 09:00 Trazodone HCl (Desyrel) 50 mg HS MAY REPEAT X 1 PRN PO insomnia Last a dministered on 05/15/18at 02:30; Admin Dose 50 MG; Start 05/09/18 at 15:00 Insulin Glargine (Lantus) 12 units DAILY@2000 SC Last administered on 05/15/18 20:57; Admin Dose 12 UNITS; Start 05/11/18 at 20:00 Insulin Aspart (Novolog Insulin Pen) NOVOLOG *MILD* ALGORITHM WITH MEALS BEDTIME SC Last administered on 05/16/18 17:24; Admin Dose 1 UNIT; Start 05/10/18 at 17:35 Metoprolol Tartrate (Lopressor) 50 mg Q8 PO Last administered on 05/16/18 13:40; Admin Dose 50 MG; Start 05/10/18 at 22:00 Hydroxyzine HCl (Atarax) 10 mg Q6H PRN PO ITCHING; Start 05/12/18 at 09:30 Tramadol HCl (Ultram) 50 mg Q6H PRN PO PAIN LEVEL 1-3 Last administered on 05/12/18 10:33; Admin Dose 50 MG; Start 05/12/18 at 09:30 Amiodarone HCl (Cordarone) 200 mg TID PO Last administered on 05/16/18 13:40; Admin Dose 200 MG; Start 05/13/18 at 00:00 Megestrol Acetate (Megace) 40 mg QID PO Last administered on 05/16/18 17:18; Admin Dose 40 MG; Start 05/13/18 at 10:30 Lactobacillus Acidophilus/ Rhamnosus (Culturelle) 1 cap WITH MEALS PO Last administered on 05/16/18 17:18; Admin Dose 1 CAP; Start 05/14/18 at 19:00 Famotidine (Pepcid) 20 mg BID PO Last administered on 05/16/18 08:54; Admin Dose 20 MG; Start 05/15/18 at 21:00 Guaifenesin (Robitussin Liquid Cup) 100 mg Q4H PRN PO COUGH Last administered on 05/15/18 22:55; Admin Dose 100 MG; Start 05/15/18 at 23:00 Bumetanide (Bumex) 1 mg BID DIURETICS PO Last administered on 05/16/18 17:18; Admin Dose 1 MG; Start 05/16/18 at 18:00 Vinny Simons DO May 16, 2018 20:01
[2018-05-16] MEDS ORDERED: POTASSIUM CHLORIDE (SR) 10 MEQ TAB PO ONE (20:30)
[2018-05-16] MEDS: INSULIN GLARGINE [LANTus] (100 UNITS/ML) SYG SC SCH (20:51)
[2018-05-16] MEDS: ATORVASTATIN 40 MG TAB PO SCH (20:53)
[2018-05-16] MEDS ORDERED: METOPROLOL 50 MG TAB PO SCH (21:00)
[2018-05-16] MEDS: traMADol 50 MG TAB PO PRN (23:47)
[2018-05-17] VITALS (12 sets, daily range): BP systolic 111–157; BP diastolic 57–83; PULSE 70–93; RESP 16–19
[2018-05-17] MEDS: INSULIN ASPART [NOVOLOG] 3 ML PEN SC SCH ×4 (07:53→20:32)
[2018-05-17] MEDS: AMIODARONE 200 MG TAB PO SCH (08:14)
[2018-05-17] MEDS: BUMETANIDE 1 MG TAB PO SCH ×2 (08:14→17:39)
[2018-05-17] MEDS: FAMOTIDINE 20 MG TAB PO SCH ×2 (08:14→20:27)
[2018-05-17] MEDS: LACTOBACILLUS RHAMNOSUS CAP PO SCH ×3 (08:15→17:39)
[2018-05-17] MEDS: ASPIRIN 81 MG TAB PO SCH (08:15)
[2018-05-17] MEDS: MEGESTROL 40 MG TAB PO SCH ×4 (08:15→20:27)
[2018-05-17] MEDS: LISINOPRIL 5 MG TAB PO SCH (08:15)
[2018-05-17] MEDS: METOPROLOL 50 MG TAB PO SCH ×2 (08:16→20:28)
[2018-05-17] MEDS: ENOXAPARIN 40 MG/0.4 ML SYG SC SCH (08:18)
[2018-05-17] MEDS: ACETAMINOPHEN 325 MG TAB PO PRN ×2 (11:11→23:12)
--- NOTE | 2018-05-17 11:35 | CONS ---
Date/Time of Note Date/Time of Note DATE: 05/17/18 TIME: 11:32 Assessment/Plan Assessment/Plan Hospital Course No acute changes, looks comfortable, no fevers Chest x-ray: No significant change. Mild cardiomegaly with pulmonary vascular congestion. Small bilateral pleural effusions, left greater than right. Indwelling: Freed Physical examination: Fragile well-developed elderly woman who is alert in no distress. Head atraumatic normocephalic sclera nonicteric. Vehicle mucosa dry neck is supple. Chest rise symmetrical breath sounds with scattered crackles to bases. Heart: S1-S2. Abdomen soft bowel sounds present. Extremities without cyanosis. Skin: Midsternal dressing clean and dry and intact Assessment: 1. Coronary artery disease, status post CABG 2. Atrial fibrillation status post RVR on admission 3. Fluid overload 4. S/p pneumonia 5. Diabetes 6. Hypertension Plan: Patient remained stable, no fevers overnight, still with leukocytosis, will order urine cx, observe of abx, follow cardiology recommendations Result Diagram: 05/17/18 0449 05/17/18 0449 Results 24hrs Laboratory Tests Test 05/16/18 17:17 05/16/18 20:42 05/17/18 04:49 05/17/18 11:14 Bedside Glucose 149 133 158 White Blood Count 12.0 H Red Blood Count 3.67 L Hemoglobin 10.9 L Hematocrit 33.2 L Mean Corpuscular 90.5 Volume Mean Corpuscular 29.7 Hemoglobin Mean Corpuscular 32.8 Hemoglobin Concent Red Cell 14.4 Distribution Width Platelet Count 386 Mean Platelet Volume 10.7 H Immature 0.700 H Granulocytes % Neutrophils % 61.8 Lymphocytes % 27.0 Monocytes % 8.3 Eosinophils % 1.7 Basophils % 0.5 Nucleated Red Blood 0.0 Cells % Immature 0.090 H Granulocytes # Neutrophils # 7.4 Lymphocytes # 3.2 H Monocytes # 1.0 H Eosinophils # 0.2 Basophils # 0.1 Nucleated Red Blood 0.0 Cells # Sodium Level 142 Potassium Level 3.8 Chloride Level 103 Carbon Dioxide Level 26 Anion Gap 13 Blood Urea Nitrogen 18 Creatinine 0.94 Est Glomerular 60 Filtrat Rate mL/min Glucose Level 115 Calcium Level 9.0 Phosphorus Level 3.4 Magnesium Level 2.2 Consultation Date/Type/Reason Admit Date/Time May 03, 2018 at 23:07 Initial Consult Date Type of Consult ID Exam/Review of Systems Vital Signs Vitals Vital Signs Date Temp Pulse Resp B/P (MAP) Pulse Ox O2 O2 Flow FiO2 Time Delivery Rate 05/17/18 89 08:00 05/17/18 98.4 18 157/83 94 07:49 (107) 05/17/18 Nasal 2.0 01:02 Cannula 05/16/18 21 21:08 Intake and Output 05/16/18 05/16/18 05/17/18 1515:00 23:00 07:00 IntakeIntake Total 900 ml 400 ml BalanceBalance 900 ml 400 ml Medications Medications Current Medications Acetaminophen (Tylenol Tab) 650 mg Q6H PRN PO MILD PAIN(1-3)OR ELEVATED TEMP Last administered on 05/17/18at 11:11; Admin Dose 650 MG; Start 05/03/18 at 23:30 IV Flush (NS 3 ml) 3 ml PER PROTOCOL IV ; Start 05/04/18 at 01:00 Ondansetron HCl (Zofran Inj) 4 mg Q6H PRN IV NAUSEA AND/OR VOMITING Last administered on 05/10/18at 19:52; Admin Dose 4 MG; Start 05/04/18 at 01:00 Nitroglycerin (Nitroglycerin (Sl Tab) 0.4 Mg) 1 tab Q5M PRN SL CHEST PAIN Last administered on 05/14/18at 01:19; Admin Dose 1 TAB; Start 05/04/18 at 01:00 Enoxaparin Sodium (Lovenox) 40 mg DAILY SC Last administered on 05/17/18at 08:18; Admin Dose 40 MG; Start 05/04/18 at 09:00 Albuterol/ Ipratropium (Duoneb) 3 ml Q2H RESP THERAPY PRN HHN SHORTNESS OF BREATH; Start 05/04/18 at 01:00 Miscellaneous Information 1 ea NOTE XX ; Start 05/04/18 at 01:00 Glucose (Glutose) 15 gm Q15M PRN PO DECREASED GLUCOSE; Start 05/04/18 at 01:00 Glucose (Glutose) 22.5 gm Q15M PRN PO DECREASED GLUCOSE; Start 05/04/18 at 01:00 Dextrose (D50w Syringe) 25 ml Q15M PRN IV DECREASED GLUCOSE; Start 05/04/18 at 01:00 Dextrose (D50w Syringe) 50 ml Q15M PRN IV DECREASED GLUCOSE; Start 05/04/18 at 01:00 Glucagon (Glucagen) 1 mg Q15M PRN IM DECREASED GLUCOSE; Start 05/04/18 at 01:00 Glucose (Glutose) 15 gm Q15M PRN BUCCAL DECREASED GLUCOSE; Start 05/04/18 at 01:00 Ondansetron HCl (Zofran Inj) 2 mg ONCE PRN IV NAUSEA AND/OR VOMITING Last administered on 05/09/18at 09:51; Admin Dose 2 MG; Start 05/08/18 at 14:30 Ondansetron HCl (Zofran Inj) 4 mg Q6H PRN IV NAUSEA AND/OR VOMITING; Start 05/08/18 at 14:30 Acetaminophen (Tylenol Liquid) 650 mg Q3H PRN NGT ELEVATED TEMPERATURE Last administered on 05/11/18at 20:16; Admin Dose 650 MG; Start 05/08/18 at 14:30 Magnesium Sulfate/ Dextrose 100 ml @ 100 mls/hr PRN PRN IVPB PENDING LAB VALUE; Start 05/08/18 at 14:30 Dextrose (D50w Syringe) 25 ml Q15M PRN IV DECREASED GLUCOSE; Start 05/08/18 at 16:00 Atorvastatin Calcium (Lipitor) 40 mg HS PO Last administered on 05/16/18at 20:53; Admin Dose 40 MG; Start 05/08/18 at 21:00 Acetaminophen (Tylenol Supp) 650 mg Q4H PRN [place] MILD PAIN(1-3) OR TEMP>38C Last administered on 05/08/18at 23:25; Admin Dose 650 MG; Start 05/08/18 at 22:30 Trazodone HCl (Desyrel) 50 mg HS MAY REPEAT X 1 PRN PO insomnia Last administered on 05/15/18 02:30; Admin Dose 50 MG; Start 05/09/18 at 15:00 Insulin Glargine (Lantus) 12 units DAILY@2000 SC Last administered on 05/16/18 20:51; Admin Dose 12 UNITS; Start 05/11/18 at 20:00 Insulin Aspart (Novolog Insulin Pen) NOVOLOG *MILD* ALGORITHM WITH MEALS BEDTIME SC Last administered on 05/16/18at 17:24; Admin Dose 1 UNIT; Start 05/10/18 at 17:35 Hydroxyzine HCl (Atarax) 10 mg Q6H PRN PO ITCHING; Start 05/12/18 at 09:30 Tramadol HCl (Ultram) 50 mg Q6H PRN PO PAIN LEVEL 1-3 Last administered on 05/16/18 23:47; Admin Dose 50 MG; Start 05/12/18 at 09:30 Megestrol Acetate (Megace) 40 mg QID PO Last administered on 05/17/18 11:11; Admin Dose 40 MG; Start 05/13/18 at 10:30 Lactobacillus Acidophilus/ Rhamnosus (Culturelle) 1 cap WITH MEALS PO Last administered on 05/17/18 11:11; Admin Dose 1 CAP; Start 05/14/18 at 19:00 Famotidine (Pepcid) 20 mg BID PO Last administered on 05/17/18 08:14; Admin Dose 20 MG; Start 05/15/18 at 21:00 Guaifenesin (Robitussin Liquid Cup) 100 mg Q4H PRN PO COUGH Last administered on 05/15/18at 22:55; Admin Dose 100 MG; Start 05/15/18 at 23:00 Bumetanide (Bumex) 1 mg BID DIURETICS PO Last administered on 05/17/18 08:14; Admin Dose 1 MG; Start 05/16/18 at 18:00 Amiodarone HCl (Cordarone) 200 mg DAILY PO Last administered on 05/17/18 08:14; Admin Dose 200 MG; Start 05/17/18 at 09:00 Aspirin (Aspirin) 81 mg DAILY PO Last administered on 05/17/18 08:15; Admin Dose 81 MG; Start 05/17/18 at 09:00 Lisinopril (Zestril) 5 mg DAILY PO Last administered on 05/17/18 08:15; Admin Dose 5 MG; Start 05/17/18 at 09:00 Metoprolol Tartrate (Lopressor) 100 mg BID PO Last administered on 05/17/18 08:16; Admin Dose 100 MG; Start 05/16/18 at 21:00 NU FOX NP May 17, 2018 11:35
--- NOTE | 2018-05-17 16:36 | PN ---
Date/Time of Note Date/Time of Note DATE: 05/17/18 TIME: 16:34 Objective Vitals Vital Signs Date Temp Pulse Resp B/P (MAP) Pulse Ox O2 O2 Flow FiO2 Time Delivery Rate 05/17/18 98.5 84 19 144/69 95 15:14 (94) 05/17/18 Nasal 2.0 01:02 Cannula 05/16/18 21 21:08 Intake and Output 05/16/18 05/16/18 05/17/18 1414:59 22:59 06:59 IntakeIntake Total 900 ml 400 ml BalanceBalance 900 ml 400 ml Results Result Diagram: 05/17/18 0449 05/17/18 0449 Medications Medications Current Medications Acetaminophen (Tylenol Tab) 650 mg Q6H PRN PO MILD PAIN(1-3)OR ELEVATED TEMP Last administered on 05/17/18at 11:11; Admin Dose 650 MG; Start 05/03/18 at 23:30 IV Flush (NS 3 ml) 3 ml PER PROTOCOL IV ; Start 05/04/18 at 01:00 Ondansetron HCl (Zofran Inj) 4 mg Q6H PRN IV NAUSEA AND/OR VOMITING Last administered on 05/10/18at 19:52; Admin Dose 4 MG; Start 05/04/18 at 01:00 Nitroglycerin (Nitroglycerin (Sl Tab) 0.4 Mg) 1 tab Q5M PRN SL CHEST PAIN Last administered on 05/14/18at 01:19; Admin Dose 1 TAB; Start 05/04/18 at 01:00 Enoxaparin Sodium (Lovenox) 40 mg DAILY SC Last administered on 05/17/18at 08:18; Admin Dose 40 MG; Start 05/04/18 at 09:00 Albuterol/ Ipratropium (Duoneb) 3 ml Q2H RESP THERAPY PRN HHN SHORTNESS OF BREATH; Start 05/04/18 at 01:00 Miscellaneous Information 1 ea NOTE XX ; Start 05/04/18 at 01:00 Glucose (Glutose) 15 gm Q15M PRN PO DECREASED GLUCOSE; Start 05/04/18 at 01:00 Glucose (Glutose) 22.5 gm Q15M PRN PO DECREASED GLUCOSE; Start 05/04/18 at 01:00 Dextrose (D50w Syringe) 25 ml Q15M PRN IV DECREASED GLUCOSE; Start 05/04/18 at 01:00 Dextrose (D50w Syringe) 50 ml Q15M PRN IV DECREASED GLUCOSE; Start 05/04/18 at 01:00 Glucagon (Glucagen) 1 mg Q15M PRN IM DECREASED GLUCOSE; Start 05/04/18 at 01:00 Glucose (Glutose) 15 gm Q15M PRN BUCCAL DECREASED GLUCOSE; Start 05/04/18 at 0 1:00 Ondansetron HCl (Zofran Inj) 2 mg ONCE PRN IV NAUSEA AND/OR VOMITING Last administered on 05/09/18at 09:51; Admin Dose 2 MG; Start 05/08/18 at 14:30 Ondansetron HCl (Zofran Inj) 4 mg Q6H PRN IV NAUSEA AND/OR VOMITING; Start 05/08/18 at 14:30 Acetaminophen (Tylenol Liquid) 650 mg Q3H PRN NGT ELEVATED TEMPERATURE Last administered on 05/11/18at 20:16; Admin Dose 650 MG; Start 05/08/18 at 14:30 Magnesium Sulfate/ Dextrose 100 ml @ 100 mls/hr PRN PRN IVPB PENDING LAB VALUE; Start 05/08/18 at 14:30 Dextrose (D50w Syringe) 25 ml Q15M PRN IV DECREASED GLUCOSE; Start 05/08/18 at 16:00 Atorvastatin Calcium (Lipitor) 40 mg HS PO Last administered on 05/16/18at 20:53; Admin Dose 40 MG; Start 05/08/18 at 21:00 Acetaminophen (Tylenol Supp) [address] MILD PAIN(1-3) OR TEMP>38C Last administered on 05/08/18at 23:25; Admin Dose 650 MG; Start 05/08/18 at 22:30 Trazodone HCl (Desyrel) 50 mg HS MAY REPEAT X 1 PRN PO insomnia Last administered on 05/15/18 02:30; Admin Dose 50 MG; Start 05/09/18 at 15:00 Insulin Glargine (Lantus) 12 units DAILY@2000 SC Last administered on 05/16/18 20:51; Admin Dose 12 UNITS; Start 05/11/18 at 20:00 Insulin Aspart (Novolog Insulin Pen) NOVOLOG *MILD* ALGORITHM WITH MEALS BEDTIME SC Last administered on 05/16/18 17:24; Admin Dose 1 UNIT; Start 05/10/18 at 17:35 Hydroxyzine HCl (Atarax) 10 mg Q6H PRN PO ITCHING; Start 05/12/18 at 09:30 Tramadol HCl (Ultram) 50 mg Q6H PRN PO PAIN LEVEL 1-3 Last administered on 05/16/18 23:47; Admin Dose 50 MG; Start 05/12/18 at 09:30 Megestrol Acetate (Megace) 40 mg QID PO Last administered on 05/17/18 11:11; Admin Dose 40 MG; Start 05/13/18 at 10:30 Lactobacillus Acidophilus/ Rhamnosus (Culturelle) 1 cap WITH MEALS PO Last administered on 05/17/18 11:11; Admin Dose 1 CAP; Start 05/14/18 at 19:00 Famotidine (Pepcid) 20 mg BID PO Last administered on 05/17/18 08:14; Admin Dose 20 MG; Start 05/15/18 at 21:00 Guaifenesin (Robitussin Liquid Cup) 100 mg Q4H PRN PO COUGH Last administered on 05/15/18 22:55; Admin Dose 100 MG; Start 05/15/18 at 23:00 Bumetanide (Bumex) 1 mg BID DIURETICS PO Last administered on 05/17/18 08:14; Admin Dose 1 MG; Start 05/16/18 at 18:00 Amiodarone HCl (Cordarone) 200 mg DAILY PO Last administered on 05/17/18 08:14; Admin Dose 200 MG; Start 05/17/18 at 09:00 Aspirin (Aspirin) 81 mg DAILY PO Last administered on 05/17/18 08:15; Admin Dose 81 MG; Start 05/17/18 at 09:00 Lisinopril (Zestril) 5 mg DAILY PO Last administered on 05/17/18 08:15; Admin Dose 5 MG; Start 05/17/18 at 09:00 Metoprolol Tartrate (Lopressor) 100 mg BID PO Last administered on 05/17/18 08:16; Admin Dose 100 MG; Start 05/16/18 at 21:00 VTE Prophylaxis Risk score (from Nsg)>0 risk: 2 SCD applied (from Nsg): Yes Lines/Catheters IV Catheter Type: Freed in Place: No Assessment/Plan Hospital Course Subjective Patient feels more weak Objective Physical exam General: Patient is laying in bed and answers questions appropriately Mentation: Patient is alert and oriented 4, Head: Normocephalic atraumatic Eyes: EOMI, pupils reactive to light Neck: Supple, nontender, midline Respiratory: Coarse to auscultation bilaterally Cardiovascular: regular rate, no obvious murmurs Gastrointestinal: non-tender to palpation, bowel sounds heard. Neurological: Moves all extremities spontaneously Skin: Surgical site, midline, bandaged Assessment/Plan 1. Afib with RVR episode - patient with another episode that broke on its own. - Continue medications per cardiology - Cardiology on board and recommendations appreciated. 2. CAD s/p CABG with triple vessel disease - CT surgery on board and appreciate consultation. Patient doing well and continue current care. Encourage OOB - Patient tolerated CABG without any acute complications. - Cardiology on board and appreciate recommendations. Continue on BB, cont bumex per cardiology 3. Hypertension - stable 4. Dyslipidemia - Will continue on statin. 5. Acute shortness of breath- improving - Currently on antibiotics for pneumonia seen on previous CXR - WBC normalized - Lactic acid normalized - ID consulted 6. Diabetes Mellitus - A1c noted - hold home metformin 7. Diminished appetite - Will try appetite stimulant - Boost with meals 8. Disposition -changed to po bumex -plan on DC home with HHPT JOSE ELIAS Bryan May 17, 2018 16:36
--- NOTE | 2018-05-17 18:13 | CONS ---
Date/Time of Note Date/Time of Note DATE: 05/17/18 TIME: 18:12 Assessment/Plan Assessment/Plan Assessment/Plan Severe obstructive coronary artery disease, s/p CABG 05/08/18 MILLER-LAD, SVG-OM, SVG-PDA Preserved Ejection Fraction Diabetes Hypertension Paroxysmal atrial fibrillation, currently sinus rhythm Acute decompensated diastolic congestive heart failure -pt s/p CABG -cont ASA, Statin -Adjusted beta-vanna to twice daily dosing in preparation of discharge -Remains in sinus rhythm, decreased amiodarone to daily -Lung examination improving, currently on p.o. Bumex -Encourage incentive spirometry and physical therapy -Maintain potassium above 4.0 and magnesium above 2.0 -DC planning Result Diagram: 05/17/18 0449 05/17/189 Results 24hrs Laboratory Tests Test 05/16/18 20:42 05/17/18 04:49 05/17/18 11:14 05/17/18 17:11 Bedside Glucose 133 158 173 White Blood Count 12.0 H Red Blood Count 3.67 L Hemoglobin 10.9 L Hematocrit 33.2 L Mean Corpuscular 90.5 Volume Mean Corpuscular 29.7 Hemoglobin Mean Corpuscular 32.8 Hemoglobin Concent Red Cell 14.4 Distribution Width Platelet Count 386 Mean Platelet Volume 10.7 H Immature 0.700 H Granulocytes % Neutrophils % 61.8 Lymphocytes % 27.0 Monocytes % 8.3 Eosinophils % 1.7 Basophils % 0.5 Nucleated Red Blood 0.0 Cells % Immature 0.090 H Granulocytes # Neutrophils # 7.4 Lymphocytes # 3.2 H Monocytes # 1.0 H Eosinophils # 0.2 Basophils # 0.1 Nucleated Red Blood 0.0 Cells # Sodium Level 142 Potassium Level 3.8 Chloride Level 103 Carbon Dioxide Level 26 Anion Gap 13 Blood Urea Nitrogen 18 Creatinine 0.94 Est Glomerular 60 Filtrat Rate mL/min Glucose Level 115 Calcium Level 9.0 Phosphorus Level 3.4 Magnesium Level 2.2 Consultation Date/Type/Reason Admit Date/Time May 03, 2018 at 23:07 Initial Consult Date Type of Consult cv 24 HR Interval Summary Free Text/Dictation Complains of fatigue, denies chest pain, shortness of breath or palpitations Exam/Review of Systems Vital Signs Vitals Vital Signs Date Temp Pulse Resp B/P (MAP) Pulse Ox O2 O2 Flow FiO2 Time Delivery Rate 05/17/18 84 16:00 05/17/18 98.5 19 144/69 95 15:14 (94) 05/17/18 Nasal 2.0 01:02 Cannula 05/16/18 21 21:08 Intake and Output 05/16/18 05/16/18 05/17/18 1515:00 23:00 07:00 IntakeIntake Total 900 ml 400 ml BalanceBalance 900 ml 400 ml Exam No apparent distress Constitutional: alert, oriented Head: normocephalic Respiratory: other (Coarse breath sounds bilaterally, no wheezing) Cardiovascular: regular rate and rhythm, other (S1-S2 heard) Gastrointestinal: soft, non-tender, bowel sounds Extremities: edema (Trace) Medications Medications Current Medications Acetaminophen (Tylenol Tab) 650 mg Q6H PRN PO MILD PAIN(1-3)OR ELEVATED TEMP Last administered on 05/17/18at 11:11; Admin Dose 650 MG; Start 05/03/18 at 23:30 IV Flush (NS 3 ml) 3 ml PER PROTOCOL IV ; Start 05/04/18 at 01:00 Ondansetron HCl (Zofran Inj) 4 mg Q6H PRN IV NAUSEA AND/OR VOMITING Last administered on 05/10/18at 19:52; Admin Dose 4 MG; Start 05/04/18 at 01:00 Nitroglycerin (Nitroglycerin (Sl Tab) 0.4 Mg) 1 tab Q5M PRN SL CHEST PAIN Last administered on 05/14/18at 01:19; Admin Dose 1 TAB; Start 05/04/18 at 01:00 Enoxaparin Sodium (Lovenox) 40 mg DAILY SC Last administered on 05/17/18at 08:18; Admin Dose 40 MG; Start 05/04/18 at 09:00 Albuterol/ Ipratropium (Duoneb) 3 ml Q2H RESP THERAPY PRN HHN SHORTNESS OF BREATH; Start 05/04/18 at 01:00 Miscellaneous Information 1 ea NOTE XX ; Start 05/04/18 at 01:00 Glucose (Glutose) 15 gm Q15M PRN PO DECREASED GLUCOSE; Start 05/04/18 at 01:00 Glucose (Glutose) 22.5 gm Q15M PRN PO DECREASED GLUCOSE; Start 05/04/18 at 01:00 Dextrose (D50w Syringe) 25 ml Q15M PRN IV DECREASED GLUCOSE; Start 05/04/18 at 01:00 Dextrose (D50w Syringe) 50 ml Q15M PRN IV DECREASED GLUCOSE; Start 05/04/18 at 01:00 Glucagon (Glucagen) 1 mg Q15M PRN IM DECREASED GLUCOSE; Start 05/04/18 at 01:00 Glucose (Glutose) 15 gm Q15M PRN BUCCAL DECREASED GLUCOSE; Start 05/04/18 at 01:00 Ondansetron HCl (Zofran Inj) 2 mg ONCE PRN IV NAUSEA AND/OR VOMITING Last administered on 05/09/18at 09:51; Admin Dose 2 MG; Start 05/08/18 at 14:30 Ondansetron HCl (Zofran Inj) 4 mg Q6H PRN IV NAUSEA AND/OR VOMITING; Start 05/08/18 at 14:30 Acetaminophen (Tylenol Liquid) 650 mg Q3H PRN NGT ELEVATED TEMPERATURE Last administered on 05/11/18at 20:16; Admin Dose 650 MG; Start 05/08/18 at 14:30 Magnesium Sulfate/ Dextrose 100 ml @ 100 mls/hr PRN PRN IVPB PENDING LAB VALUE; Start 05/08/18 at 14:30 Dextrose (D50w Syringe) 25 ml Q15M PRN IV DECREASED GLUCOSE; Start 05/08/18 at 16:00 Atorvastatin Calcium (Lipitor) 40 mg HS PO Last administered on 05/16/18at 20:53 ; Admin Dose 40 MG; Start 05/08/18 at 21:00 Acetaminophen (Tylenol Supp) 650 mg Q4H PRN AL MILD PAIN(1-3) OR TEMP>38C Last administered on 05/08/18at 23:25; Admin Dose 650 MG; Start 05/08/18 at 22:30 Trazodone HCl (Desyrel) 50 mg HS MAY REPEAT X 1 PRN PO insomnia Last administered on 05/15/18 02:30; Admin Dose 50 MG; Start 05/09/18 at 15:00 Insulin Glargine (Lantus) 12 units DAILY@2000 SC Last administered on 05/16/18 20:51; Admin Dose 12 UNITS; Start 05/11/18 at 20:00 Insulin Aspart (Novolog Insulin Pen) NOVOLOG *MILD* ALGORITHM WITH MEALS BEDTIME SC Last administered on 05/16/18 17:24; Admin Dose 1 UNIT; Start 05/10/18 at 17:35 Hydroxyzine HCl (Atarax) 10 mg Q6H PRN PO ITCHING; Start 05/12/18 at 09:30 Tramadol HCl (Ultram) 50 mg Q6H PRN PO PAIN LEVEL 1-3 Last administered on 05/16/18 23:47; Admin Dose 50 MG; Start 05/12/18 at 09:30 Megestrol Acetate (Megace) 40 mg QID PO Last administered on 05/17/18 17:39; Admin Dose 40 MG; Start 05/13/18 at 10:30 Lactobacillus Acidophilus/ Rhamnosus (Culturelle) 1 cap WITH MEALS PO Last administered on 05/17/18 17:39; Admin Dose 1 CAP; Start 05/14/18 at 19:00 Famotidine (Pepcid) 20 mg BID PO Last administered on 05/17/18 08:14; Admin Dose 20 MG; Start 05/15/18 at 21:00 Guaifenesin (Robitussin Liquid Cup) 100 mg Q4H PRN PO COUGH Last administered on 05/15/18 22:55; Admin Dose 100 MG; Start 05/15/18 at 23:00 Bumetanide (Bumex) 1 mg BID DIURETICS PO Last administered on 05/17/18 17:39; Admin Dose 1 MG; Start 05/16/18 at 18:00 Amiodarone HCl (Cordarone) 200 mg DAILY PO Last administered on 05/17/18 08:14; Admin Dose 200 MG; Start 05/17/18 at 09:00 Aspirin (Aspirin) 81 mg DAILY PO Last administered on 05/17/18 08:15; Admin Dose 81 MG; Start 05/17/18 at 09:00 Lisinopril (Zestril) 5 mg DAILY PO Last administered on 05/17/18 08:15; Admin Dose 5 MG; Start 05/17/18 at 09:00 Metoprolol Tartrate (Lopressor) 100 mg BID PO Last administered on 05/17/18 08:16; Admin Dose 100 MG; Start 05/16/18 at 21:00 Vinny Simons DO May 17, 2018 18:13
[2018-05-17] MEDS: ATORVASTATIN 40 MG TAB PO SCH (20:27)
[2018-05-17] MEDS: INSULIN GLARGINE [LANTus] (100 UNITS/ML) SYG SC SCH (20:32)
[2018-05-18] VITALS: PULSE 73
[2018-05-18 04:00] VITALS: PULSE 75
[2018-05-18 04:21] VITALS: BP 142/93; PULSE 85; RESP 18
[2018-05-18] MEDS: BUMETANIDE 1 MG TAB PO SCH (05:53)
[2018-05-18 07:08] VITALS: BP 151/68; PULSE 84; RESP 18
[2018-05-18 08:00] VITALS: PULSE 90
[2018-05-18] MEDS: MEGESTROL 40 MG TAB PO SCH ×2 (08:09→12:22)
[2018-05-18] MEDS: LACTOBACILLUS RHAMNOSUS CAP PO SCH ×2 (08:09→12:26)
[2018-05-18] MEDS: ACETAMINOPHEN 325 MG TAB PO PRN (08:09)
[2018-05-18] MEDS: METOPROLOL 50 MG TAB PO SCH (08:10)
[2018-05-18] MEDS: ASPIRIN 81 MG TAB PO SCH (08:10)
[2018-05-18] MEDS: FAMOTIDINE 20 MG TAB PO SCH (08:10)
[2018-05-18] MEDS: LISINOPRIL 5 MG TAB PO SCH (08:11)
[2018-05-18] MEDS: AMIODARONE 200 MG TAB PO SCH (08:11)
[2018-05-18] MEDS: INSULIN ASPART [NOVOLOG] 3 ML PEN SC SCH ×2 (08:32→12:00)
[2018-05-18] MEDS: ENOXAPARIN 40 MG/0.4 ML SYG SC SCH (08:32)
[2018-05-18] MEDS ORDERED: HYDROCODONE/APAP (5/325) TAB PO PRN (10:00)
[2018-05-18] MEDS ORDERED: METO-429 PO (10:37)
[2018-05-18] MEDS ORDERED: BUME1TAB PO (10:37)
[2018-05-18] MEDS ORDERED: TRAM50TA2 PO (10:37)
[2018-05-18] MEDS ORDERED: ASPI-831 PO (10:37)
[2018-05-18] MEDS ORDERED: ATOR40TA68 PO (10:37)
[2018-05-18] MEDS ORDERED: LISI-313 PO (10:37)
[2018-05-18] MEDS ORDERED: AMIO200T4 PO (10:37)
--- NOTE | 2018-05-18 10:41 | PDOCDIS ---
Discharge Instructions CONDITION [id number] Patient Condition: [id number] Stable HOME CARE INSTRUCTIONS: [id number] Special Diet: [id number] carb controlled, low fat low cholesterol diet ACTIVITY: [id number] Activity Restrictions: [id number] Slowly Increase Activity FOLLOW UP/APPOINTMENTS Follow-up Plan 1. Please follow-up with Dr. Couch, cardiothoracic surgery within 1 week, per cardiothoracic surgery chest bandage may be removed in 3 days or if uncomfortable keep bandage on until seen by surgeon 2. Please follow-up with Dr. Simons, cardiology or another magneto repairer of your choosing as soon as possible 3. Please pay close attention to the med reconciliation form, new prescriptions have been provided, please continue metformin for your diabetes JOSE ELIAS ANGELO May 18, 2018 10:41
--- NOTE | 2018-05-18 10:47 | DS ---
Date/Time of Note Date/Time of Note DATE: 05/18/18 TIME: 10:47 Discharge Summary Admission/Discharge Info Admit Date/Time May 03, 2018 at 23:07 Discharge Date/Time Patient Condition: Stable Hospital Course Patient is a female with a past medical history significant for hypertension and dyslipidemia and diabetes mellitus who presented to [facility] as a transfer for emergent open heart surgery. Patient received triple-vessel bypass open heart surgery by cardiothoracic surgeon and subsequently had a mildly difficult course due to issues with shortness of breath and atrial fibrillation with RVR. Cardiology subsequently adjust medications to correct these issues and patient is currently doing very well. Patient was offered a [facility] facility or rehab however patient and patient's family wants to take care of her at home and will be able to provide her 24-hour access and care. Patient will be sent home with front wheel walker and home health PT. Explicit instructions were given to the patient and patient's family regarding follow-up with a cardiothoracic surgeon and cardiology as well as new p rescriptions as needed. It was also explicitly explained to the patient's family that she needs to get up a lot slower when she does go to the restroom or tries to walk as she had a mild dizzy episode that spontaneously resolved which is likely secondary to her getting up too quickly. It was clearly explained if this continues for patient to return back to the ED Discharge diagnosis Coronary artery disease status post CABG with triple-vessel disease A. fib with RVR, resolved Hypertension Dyslipidemia Diabetes mellitus Shortness of breath, resolved Home Meds Active Scripts Bumetanide* (Bumetanide*) 1 Mg Tablet, 1 MG PO BID DIURETICS for 30 Days, #60 TAB 1 Refill Prov:JOSE ELIAS ANGELO 05/18/18 Tramadol HCl (Tramadol HCl) 50 Mg Tablet, 50 MG PO Q6H PRN for PAIN for 7 Days, #28 TAB Prov:JOSE ELIAS ANGELO 05/18/18 Aspirin (Aspirin) 81 Mg Chew, 81 MG PO DAILY for 30 Days, #30 TAB 1 Refill Prov:JOSE ELIAS ANGELO 05/18/18 Metoprolol Tartrate* (Lopressor*) 50 Mg Tab, 100 MG PO BID for 30 Days, #60 TAB 1 Refill Prov:JOSE ELIAS ANGELO 05/18/18 Lisinopril* (Lisinopril*) 5 Mg Tablet, 5 MG PO DAILY for 30 Days, #30 TAB 1 Refill Prov:JOSE ELIAS ANGELO 05/18/18 Atorvastatin* (Atorvastatin*) 40 Mg Tablet, 40 MG PO HS for 30 Days, #30 TAB 1 Refill Prov:JOSE ELIAS ANGELO 05/18/18 Amiodarone Hcl* (Amiodarone Hcl*) 200 Mg Tablet, 200 MG PO DAILY for 30 Days, #30 TAB 1 Refill Prov:JOSE ELIAS ANGELO 05/18/18 Reported Medications [Metformin Hcl] No Conflict Check 10/11/09 Discontinued Reported Medications Atorvastatin (Lipitor) 20 Mg Tablet 10/11/09 Atenolol* (Atenolol*) 25 Mg Tablet 10/11/09 Follow-up Plan 1. Please follow-up with Dr. Couch, cardiothoracic surgery within 1 week, per cardiothoracic surgery chest bandage may be removed in 3 days or if uncomfortable keep bandage on until seen by surgeon 2. Please follow-up with Dr. Simons, cardiology or another resolution manager of your choosing as soon as possible 3. Please pay close attention to the med reconciliation form, new prescriptions have been provided, please continue metformin for your diabetes Primary Care Provider Not On Staff Doctor Time spent on discharge: > 30 minutes Pending Labs Laboratory Tests Test 05/17/18 11:14 05/17/18 17:11 05/17/18 20:26 05/18/18 05:20 Bedside 158 173 128 Glucose mg/dL (70-220) mg/dL (70-220) mg/dL (70-220) White Blood 12.5 Count 10^3/ul (4.8-1 0.8) Red Blood 3.87 Count 10^6/ul (4.20- 5.40) Hemoglobin 11.4 g/dl (12.0-16. 0) Hematocrit 35.1 % (37.0-47.0) Mean 90.7 Corpuscular fl (82.0-101.0 Volume ) Mean 29.5 Corpuscular pg (29.0-33.0) Hemoglobin Mean 32.5 Corpuscular g/dl (32.0-37. Hemoglobin Conc 0) ent Red Cell 14.9 Distribution % (11.5-14.5) Width Platelet Count 436 10^3/UL (140-4 15) Mean Platelet 10.6 Volume fl (7.4-10.4) Immature 0.600 Granulocytes % % (0.001-0.429 ) Neutrophils % 64.2 % (39.0-77.0) Lymphocytes % 26.1 % (15.0-51.0) Monocytes % 7.2 % (0.0-11.0) Eosinophils % 1.5 % (0.0-7.0) Basophils % 0.4 % (0.0-2.0) Nucleated Red 0.0 Blood Cells % /100WBC (0.0-0 .0) Immature 0.070 Granulocytes # 10^3/ul (0.0-0 .031) Neutrophils # 8.0 10^3/ul (1.6-7 .5) Lymphocytes # 3.3 10^3/ul (0.8-2 .9) Monocytes # 0.9 10^3/ul (0.3-0 .9) Eosinophils # 0.2 10^3/ul (0.0-0 .5) Basophils # 0.1 10^3/ul (0.0-0 .1) Nucleated Red 0.0 Blood Cells # 10^3/ul (0.0-0 .0) Sodium Level 139 mmol/L (135-14 4) Potassium 3.5 Level mmol/L (3.5-5. 1) Chloride Level 100 mmol/L (97-110 ) Carbon Dioxide 27 Level mmol/L (21-31) Anion Gap 12 (5-13) Blood Urea 21 Nitrogen mg/dl (7-20) Creatinine 0.95 mg/dl (0.44-1. 00) Est Glomerular 59 Filtrat mL/min (>60) Rate mL/min Glucose Level 122 mg/dl (70-220) Calcium Level 9.2 mg/dl (8.4-10. 2) Phosphorus 3.8 Level mg/dl (2.5-4.9 ) Magnesium 2.2 Level mg/dl (1.7-2.5 ) Test 05/18/18 07:59 Bedside 174 Glucose mg/dL (70-220) JOSE ELIAS ANGELO May 18, 2018 10:47
[2018-05-18 11:10] VITALS: BP 111/57; PULSE 70; RESP 18
--- NOTE | 2018-05-18 13:53 | CONS ---
Date/Time of Note Date/Time of Note DATE: 05/18/18 TIME: 13:53 Assessment/Plan Assessment/Plan Hospital Course 1130 alert, feels good, no fevers Physical examination: Fragile well-developed elderly woman who is alert in no distress. Head atraumatic normocephalic sclera nonicteric. Vehicle mucosa dry neck is supple. Chest rise symmetrical breath sounds with scattered crackles to bases. Heart: S1-S2. Abdomen soft bowel sounds present. Extremities without cyanosis. Skin: Midsternal dressing clean and dry and intact Assessment: 1. Coronary artery disease, status post CABG 2. Atrial fibrillation status post RVR on admission 3. Fluid overload 4. S/p pneumonia 5. Diabetes 6. Hypertension Plan: Patient remained stable off abx, pending dc Result Diagram: 05/18/18 0520 05/18/18 0520 Results 24hrs Laboratory Tests Test 05/17/18 17:11 05/17/18 20:26 05/18/18 05:20 05/18/18 07:59 Bedside Glucose 173 128 174 White Blood Count 12.5 H Red Blood Count 3.87 L Hemoglobin 11.4 L Hematocrit 35.1 L Mean Corpuscular 90.7 Volume Mean Corpuscular 29.5 Hemoglobin Mean Corpuscular 32.5 Hemoglobin Concent Red Cell 14.9 H Distribution Width Platelet Count 436 H Mean Platelet Volume 10.6 H Immature 0.600 H Granulocytes % Neutrophils % 64.2 Lymphocytes % 26.1 Monocytes % 7.2 Eosinophils % 1.5 Basophils % 0.4 Nucleated Red Blood 0.0 Cells % Immature 0.070 H Granulocytes # Neutrophils # 8.0 H Lymphocytes # 3.3 H Monocytes # 0.9 Eosinophils # 0.2 Basophils # 0.1 Nucleated Red Blood 0.0 Cells # Sodium Level 139 Potassium Level 3.5 Chloride Level 100 Carbon Dioxide Level 27 Anion Gap 12 Blood Urea Nitrogen 21 H Creatinine 0.95 Est Glomerular 59 L Filtrat Rate mL/min Glucose Level 122 Calcium Level 9.2 Phosphorus Level 3.8 Magnesium Level 2.2 Test 05/18/18 12:16 Bedside Glucose 131 Consultation Date/Type/Reason Admit Date/Time May 03, 2018 at 23:07 Initial Consult Date Type of Consult ID Exam/Review of Systems Vital Signs Vitals Vital Signs Date Temp Pulse Resp B/P (MAP) Pulse Ox O2 O2 Flow FiO2 Time Delivery Rate 1/17/19 98.1 70 18 111/57 96 11:10 (75) 05/18/18 Room Air 04:21 05/17/18 2.0 01:02 05/16/18 21:08 Intake and Output 05/17/18 05/17/18 05/18/18 1515:00 23:00 07:00 IntakeIntake Total 700 ml 600 ml BalanceBalance 700 ml 600 ml NU FOX NP May 18, 2018 13:53
== END 2018-05-18 12:50 | disposition home health service (06) | DRG 235 ==
LOC: TEL 23:07 → ICU 05-08 13:42 → 6WM 05-12 17:14
PROVIDERS: ADMIT Internal Medicine; ATTEND Internal Medicine
PROC: 06BQ4ZZ Excision of Left Saphenous Vein, Percutaneous Endoscopic Approach (ICD-10-PCS; 2018-05-08)
PROC: 02100Z9 Bypass Coronary Artery, One Artery from Left Internal Mammary, Open Approach (ICD-10-PCS; 2018-05-08)
PROC: 5A1221Z Performance of Cardiac Output, Continuous (ICD-10-PCS; 2018-05-08)
PROC: 5A1223Z Performance of Cardiac Pacing, Continuous (ICD-10-PCS; 2018-05-08)
PROC: 021109W Bypass Coronary Artery, Two Arteries from Aorta with Autologous Venous Tissue, Open Approach (ICD-10-PCS; principal; 2018-05-08 07:30)
DX: I25.119 Atherosclerotic heart disease of native coronary artery with unspecified angina pectoris (principal); I50.33 Acute on chronic diastolic (congestive) heart failure; J18.9 Pneumonia, unspecified organism; I97.130 Postprocedural heart failure following cardiac surgery; I11.0 Hypertensive heart disease with heart failure; E11.8 Type 2 diabetes mellitus with unspecified complications; E78.5 Hyperlipidemia, unspecified; R41.0 Disorientation, unspecified; T40.605A Adverse effect of unspecified narcotics, initial encounter; I48.0 Paroxysmal atrial fibrillation; Y83.8 Other surgical procedures as the cause of abnormal reaction of the patient, or of later complication, without mention of misadventure at the time of the procedure; Y92.238 Other place in hospital as the place of occurrence of the external cause
CPT/HCPCS: 36430; 36592; 36600; 71045; 80048; 80053; 80061; 80069; 80202; 81001; 82550; 82553; 82803; 82962; 83036; 83605; 83735; 84100; 84443; 84484; 85014; 85025; 85049; 85610; 85670; 85730; 86850; 86900; 86901; 86920; 87040; 87081; 87086; 93005; 93306; 93312; 93325; 94002; 97110; 97116; 97163; 97530; J0171; J0282; J0360; J0690; J1170; J1265; J1644; J1650; J1815; J1940; J2001; J2060; J2250; J2270; J2370; J2405; J2440; J2543; J2720; J3010; J3370; J3475; J3480; J7042; J7050; J7060; J7070; P9016; P9035; P9045; P9047; P9059